=== PATIENT | male | born 1945 | race Caucasian/White ===

== ENCOUNTER 2017-11-16 07:48 | Day surgery (SDC) | payer MEDICARE ==
[2017-11-12 09:59] VITALS: BMI 40.4
[~2017-11-16 07:48] MED LIST: ALPRAZolam 0.25 MG TAB PO PRN; ALPRAZolam 0.5 MG TAB PO PRN; ASPIRIN 325 MG TAB PO STA; ATORVASTATIN 80 MG TAB PO STA; NITROGLYCERIN SL TABS 0.4 MG TAB SUBLINGUAL PRN; SODIUM CHLORIDE 0.9% 1,000 ML in EMPTY BAG 1 BAG IV ONE
[2017-11-16] MEDS ORDERED: MIDAZOLAM 2 MG/2 ML VIAL ONE (09:23)
[2017-11-16] MEDS ORDERED: VERAPAMIL 2.5 MG/ML 2 ML AMP ONE (09:23)
[2017-11-16] MEDS ORDERED: HEPARIN SODIUM 1,000 UN/ML (10ML VL) ONE (09:23)
[2017-11-16] MEDS ORDERED: LIDOCAINE 1% INJ 10MG/ML (20 ML MDV) ONE (09:23)
[2017-11-16] MEDS ORDERED: diphenhydrAMINE 50 MG/ML 1 ML VIAL ONE (09:23)
[2017-11-16] MEDS ORDERED: MIDAZOLAM 2 MG/2 ML VIAL IVP ONE (10:12)
[2017-11-16] MEDS ORDERED: diphenhydrAMINE 50 MG/ML 1 ML VIAL IVP ONE (10:12)
[2017-11-16] MEDS ORDERED: LIDOCAINE 1% INJ 10MG/ML (20 ML MDV) SQ ONE (10:19)
[2017-11-16] MEDS ORDERED: VERAPAMIL SYRINGE (5 MG/10 ML) INTRAARTER ONE (10:22)
[2017-11-16] MEDS ORDERED: NITROGLYCERIN SL TABS 0.4 MG TAB SUBLINGUAL ONE ×2 (10:34→10:35)
[2017-11-16] MEDS ORDERED: IOPAMIDOL-370 100ML BTL INJ ONE (10:36)
[2017-11-16] MEDS ORDERED: RX INFO: IV CONTRAST WAS GIVEN 1 EACH MISC MISCELLANE PRN (10:42)
[2017-11-16] MEDS ORDERED: SODIUM CHLORIDE 0.9% 1,000 ML IV SCH (10:45)
--- NOTE | 2017-11-16 11:30 | CC ---
CARDIAC CATHETERIZATION REPORT DATE OF SERVICE: 11/16/2017 PROCEDURE: Left heart catheterization and coronary angiography. PERFORMED BY: Dr. Gifty Celeste. CLINICAL INFORMATION: Mr. Michael Cintron is a 72-year-old gentleman with history of hypertension and hyperlipidemia who underwent stenting of mid LAD performed by me in April 2005. Because of symptoms of exertional shortness of breath and an abnormal stress test with inferolateral reversible defect and hypokinesia, he was advised coronary angiography. Risks, benefits, options and rationale were discussed. PROCEDURE NOTE: Under local anesthesia and strict aseptic precautions, a 6-Tamazight introducer was placed in the right radial artery. I used an Ultimate 1 catheter to perform selective coronary angiography of the left coronary artery. There was some tortuosity because the ascending aorta was coming off from more of a left-sided location and there was a steep curve on the catheter as it went down into the ascending aorta. However, I was able to cannulate the left main and selective coronary angiography was performed. I used a standard right Dionne catheter for right coronary artery. I checked LV pressures with the Ultimate 1 catheter. LV gram was not performed. The sheath was taken out and TR band applied. The saturation the fingers of the right hand was 91%. Patient tolerated procedure well without complications. ANESTHESIA: Moderate conscious sedation time was 21 minute. CARDIAC CATHETERIZATION FINDINGS: The left ventricular end-diastolic pressure was 10 mmHg without any gradient across the aortic valve. CORONARY ANGIOGRAPHY FINDINGS: LEFT MAIN CORONARY ARTERY: Short patent disease-free vessel that bifurcates into LAD and circumflex. LEFT ANTERIOR DESCENDING CORONARY ARTERY: Good caliber vessel extends along the anterior wall, gives off septal and diagonal branches. In the midportion at the site of a diagonal branch origin, there was a previously placed stent which is widely patent with very good flow. No significant disease is noted in the rest of the LAD system. There is mild narrowing noted, but no significant disease is detected. Beyond the stented segment, there is an area of myocardial bridging noted which is not new. No other significant disease is noted in the LAD system. LAD is a very large distribution vessel that curves over the apex to supply the inferoapical portion of the left ventricle. LEFT POSTERIOR CIRCUMFLEX CORONARY ARTERY: This is a technically nondominant yet good caliber, good distribution vessel that gives off a high first obtuse marginal and distal posterolateral branch which has minor irregularities and no significant disease. RIGHT CORONARY ARTERY: Technically a dominant vessel, has no significant disease, distally bifurcates into a good-sized PDA and PLV, both of which have minor irregularities. No significant disease. Dominant RCA is free of significant disease. FINAL IMPRESSION: This patient has a right dominant system, normal filling pressures, widely patent left anterior descending artery at the site of previous stenting in the mid portion with some bridging done beyond it. Right coronary artery is widely patent and circumflex has no significant disease. Filling pressures are normal. An LV-gram was not performed. RECOMMENDATION: Findings were discussed with the patient and family. I am recommending that we will continue medical therapy with aggressive risk factor modification. Probably, the stress test was a false-positive finding. MMODL / IJN: [id number] /
[2017-11-16 12:30] VITALS: RESP 16; TEMP 97.5
[2017-11-16] MEDS ORDERED: ACETAMINOPHEN TAB 325 MG TAB PO PRN (13:37)
[2017-11-16 14:14] VITALS: BP 146/84; PULSE 59
== END 2017-11-16 16:53 | disposition home or self-care (01) ==
LOC: CATHCVL 07:48 → 3OBS 10:42 → CATHCVL 16:53
PROVIDERS: ATTEND Internal Medicine Interventional Cardiology
DX: I25.110 Atherosclerotic heart disease of native coronary artery with unstable angina pectoris (principal); Z95.5 Presence of coronary angioplasty implant and graft; I10 Essential (primary) hypertension; Z87.891 Personal history of nicotine dependence; E78.00 Pure hypercholesterolemia, unspecified; E66.9 Obesity, unspecified; Z68.30 Body mass index [BMI] 30.0-30.9, adult; Z79.82 Long term (current) use of aspirin; Z79.899 Other long term (current) drug therapy
CPT/HCPCS: 93458; C1769; C1894; J2250; J1200; J2001; Q9967

== ENCOUNTER 2018-11-02 06:37 | Day surgery (SDC) | payer MEDICARE ==
[2018-10-27 10:52] VITALS: BMI 40.3
[~2018-11-02 06:37] MED LIST changes: -ALPRAZolam 0.25 MG TAB PO PRN; -ALPRAZolam 0.5 MG TAB PO PRN; -ASPIRIN 325 MG TAB PO STA; -ATORVASTATIN 80 MG TAB PO STA; +DEXAMETHASONE SOD PHOSPHATE 10 MG/ML 1 ML VIAL IV ONE; +LACTATED RINGERS 1,000 ML IV SCH; +LIDOCAINE 1% 20 ML VIAL (10MG/ML) FOR IV START INTRADERMA PRN; +MIDAZOLAM 2 MG/2 ML VIAL IV PRN; +MOXIFLOXACIN HCL 0.5% DROPS 3 ML BTL OP ONE; -NITROGLYCERIN SL TABS 0.4 MG TAB SUBLINGUAL PRN; +ONDANSETRON 4 MG/2 ML VIAL IVP ONE; -SODIUM CHLORIDE 0.9% 1,000 ML in EMPTY BAG 1 BAG IV ONE; +TETRACAINE 0.5% OPHTH (PF) DROPS 4 ML BTL OP ONE; +TIMOLOL 0.5% OPHTH DROPS 5 ML BTL OP ONE
[2018-11-02] MEDS: CYCLOPENTOLATE 1% OPHTH SOLN 2 ML BTL OP ONE ×2 (06:50→06:56)
[2018-11-02] MEDS: PHENYLEPHRINE 2.5% OPHTH DRP 2ML OP NR ×3 (06:53→07:05)
[2018-11-02 07:10] VITALS: TEMP 97.6
[2018-11-02] MEDS ORDERED: ONDANSETRON 4 MG/2 ML VIAL IVP PRN (07:12)
[2018-11-02] MEDS ORDERED: HYDROmorphone 0.5 MG/0.5 ML SYRINGE IVP PRN (07:12)
[2018-11-02] MEDS ORDERED: fentaNYL (PF) 50 MCG/ML 2 ML AMP ONE (07:24)
[2018-11-02] MEDS ORDERED: MIDAZOLAM 2 MG/2 ML VIAL ONE (07:24)
[2018-11-02] MEDS ORDERED: EPINEPHrine (PF) 0.3 ML in BALANCED SALT IRRIG SOLN COMB2 500 ML IRRIGATION ONE (07:32)
[2018-11-02] MEDS ORDERED: HYALURONATE SODIUM INTRAOCULAR 1 EACH SYRINGE (12MG/ML) INTRAOCULA ONE (07:33)
[2018-11-02] MEDS ORDERED: BALANCED SALT IRRIG SOLN COMB2 15 ML IRRIG.SOLN IRRIGATION ONE (07:33)
[2018-11-02] MEDS ORDERED: LIDOCAINE 1% (PF) 10MG/ML VIAL SQ ONE (07:34)
--- NOTE | 2018-11-02 07:55 | P.OP ---
Date of Procedure: 11/02/18 Preoperative Diagnosis: NS Postoperative Diagnosis: same Procedure(s) Performed: PIOL, OD Implants: PCB00 22.00 Anesthesia: MAC Surgeon: Arik Vazquez Estimated Blood Loss (ml): 0 Pathology: none sent Condition: stable Disposition: same day Indications for Procedure: blurry vision Operative Findings: no complications
[2018-11-02 08:22] VITALS: BP 132/79; PULSE 56; RESP 18
--- NOTE | 2018-11-03 07:50 | OP ---
OPERATIVE REPORT DATE OF SURGERY: 11/02/2018 PROCEDURE: Phacoemulsification of cataract and intraocular lens implant of the right eye. PREOPERATIVE DIAGNOSIS: Nuclear sclerosis. POSTOPERATIVE DIAGNOSIS: Nuclear sclerosis. OPERATION: Clear cornea phacoemulsification of cataract right eye. ESTIMATED BLOOD LOSS: Zero. SPECIMEN TAKEN: None. NARRATIVE: After obtaining the appropriate consent, the patient was brought to the Operating Room where the patient was placed under cardiac monitoring and prepped and draped in the usual sterile manner. At the 11 o'clock position a 15 degree super sharp blade was used to create a paracentesis followed by instillation of 1% Xylocaine MPF 50:50 mix with BSS into the anterior chamber. This was followed by Amvisc to stabilize the anterior chamber. At the 9 o'clock position a self-sealing corneal flap incision was created using 2.8 mm mary ellen keratome. A cystotome was used to initiate a continuous tear capsulorrhexis which was completed with the Utrata forceps. A Binkhorst cannula was used to hydrodissect the lens nucleus followed by hydrodelineation. Phacoemulsification of the lens was performed utilizing phacochop in 16.75 seconds at 18% power. The remaining cortical material was removed using the irrigation aspiration mode followed by additional 1% Xylocaine MPF into the anterior chamber followed by viscoelastic to stabilize the capsular bag. An Alex and Alex PCP00 22.0 diopters posterior chamber lens was placed into the capsular bag without difficulty. The remaining viscoelastic material was removed from the anterior chamber with the irrigation/aspiration. Balanced salt solution was used to normalize the intraocular pressure. The incision was checked for watertight integrity. The patient then received two drops of 0.5% timolol followed by two drops Vigamox, was lightly patched and shielded in the usual manner. There were no complications from the procedure. The patient tolerated the procedure well and was returned to recovery in good condition. MMODL / IJN: [id number] /
== END 2018-11-02 08:52 | disposition home or self-care (01) ==
LOC: OR 06:37
PROVIDERS: ATTEND Ophthalmology
DX: H25.13 Age-related nuclear cataract, bilateral (principal); G43.109 Migraine with aura, not intractable, without status migrainosus; H00.023 Hordeolum internum right eye, unspecified eyelid; H00.026 Hordeolum internum left eye, unspecified eyelid; H52.03 Hypermetropia, bilateral; H52.4 Presbyopia; E66.9 Obesity, unspecified; I10 Essential (primary) hypertension; F03.90 Unspecified dementia, unspecified severity, without behavioral disturbance, psychotic disturbance, mood disturbance, and anxiety; I25.10 Atherosclerotic heart disease of native coronary artery without angina pectoris; G47.33 Obstructive sleep apnea (adult) (pediatric); Z95.5 Presence of coronary angioplasty implant and graft; Z96.653 Presence of artificial knee joint, bilateral; Z79.82 Long term (current) use of aspirin; Z79.899 Other long term (current) drug therapy; Z87.891 Personal history of nicotine dependence; Z99.89 Dependence on other enabling machines and devices; Z68.41 Body mass index [BMI] 40.0-44.9, adult
CPT/HCPCS: 66984; C1780; J2250; J0171; J3010; J2001

== ENCOUNTER 2018-11-30 07:46 | Day surgery (SDC) | payer MEDICARE ==
[2018-11-29 08:34] VITALS: BMI 38.2
[~2018-11-30 07:46] MED LIST changes: -DEXAMETHASONE SOD PHOSPHATE 10 MG/ML 1 ML VIAL IV ONE; -LACTATED RINGERS 1,000 ML IV SCH; -MIDAZOLAM 2 MG/2 ML VIAL IV PRN; -ONDANSETRON 4 MG/2 ML VIAL IVP ONE; +ONDANSETRON 4 MG/2 ML VIAL IVP PRN
[2018-11-30 08:34] VITALS: TEMP 97.5
[2018-11-30] MEDS: CYCLOPENTOLATE 1% OPHTH SOLN 2 ML BTL OP ONE ×3 (08:38→08:50)
[2018-11-30] MEDS: PHENYLEPHRINE 2.5% OPHTH DRP 2ML OP NR ×3 (08:41→08:53)
[2018-11-30] MEDS: LACTATED RINGERS 1,000 ML IV SCH ×2 (08:53→10:24)
[2018-11-30] MEDS ORDERED: HYALURONATE SODIUM INTRAOCULAR 1 EACH SYRINGE (12MG/ML) INTRAOCULA ONE (10:16)
[2018-11-30] MEDS ORDERED: LIDOCAINE 1% (PF) 10MG/ML VIAL SQ ONE (10:17)
[2018-11-30] MEDS ORDERED: BALANCED SALT IRRIG SOLN COMB2 15 ML IRRIG.SOLN IRRIGATION ONE (10:17)
[2018-11-30] MEDS ORDERED: fentaNYL (PF) 50 MCG/ML 2 ML AMP ONE (10:18)
[2018-11-30] MEDS ORDERED: MIDAZOLAM 2 MG/2 ML VIAL ONE (10:18)
[2018-11-30] MEDS ORDERED: EPINEPHrine (PF) 0.3 ML in BALANCED SALT IRRIG SOLN COMB2 500 ML IRRIGATION ONE (10:43)
--- NOTE | 2018-11-30 10:46 | P.OP ---
Date of Procedure: 11/30/18 Preoperative Diagnosis: NS & CS Postoperative Diagnosis: same Procedure(s) Performed: PIOL, OS Implants: PCB00 21.50 Anesthesia: MAC Surgeon: Arik Vazquez Estimated Blood Loss (ml): 0 Pathology: none sent Condition: stable Disposition: same day Indications for Procedure: blurry vision Operative Findings: no complications
[2018-11-30 10:52] VITALS: RESP 16
[2018-11-30 11:16] VITALS: BP 158/67; PULSE 62
--- NOTE | 2018-12-01 05:35 | OP ---
OPERATIVE REPORT DATE OF SURGERY: 11/30/2018 SURGEON: Arik Vazquez MD PREOPERATIVE DIAGNOSIS: Nuclear sclerosis and cortical sclerosis. POSTOPERATIVE DIAGNOSIS: Nuclear sclerosis and cortical sclerosis. OPERATION: Phacoemulsification of cataract and intraocular lens implant to the left eye. ESTIMATED BLOOD LOSS: Zero. SPECIMEN TAKEN: None. NARRATIVE: After obtaining the appropriate consent, the patient was brought to the operating room where the patient was placed under cardiac monitoring and prepped and draped in the usual sterile manner. At the 5 o'clock position a 15 degree super sharp blade was used to create a paracentesis followed by instillation of 1% Xylocaine MPF 50:50 mix with BSS into the anterior chamber. This was followed by Amvisc to stabilize the anterior chamber. At the 3 o'clock position a self-sealing corneal flap incision was created using 2.8 mm mary ellen keratome. A cystotome was used to initiate a continuous tear capsulorrhexis which was completed with the Utrata forceps. A Binkhorst cannula was used to hydrodissect the lens nucleus followed by hydrodelineation. Phacoemulsification of the lens was performed utilizing phaco chop in 16.41 seconds at 16% power. The remaining cortical material was removed using the irrigation aspiration mode followed by additional 1% Xylocaine MPF into the anterior chamber followed by viscoelastic to stabilize the capsular bag. An Alex and Alex PCB00 21.5 diopters posterior chamber lens was placed into the capsular bag without difficulty. The remaining viscoelastic material was removed from the anterior chamber with the irrigation/aspiration. Balanced salt solution was used to normalize the intraocular pressure. The incision was checked for watertight integrity. The patient then received two drops of 0.5% timolol followed by two drops Vigamox, was lightly patched and shielded in the usual manner. There were no complications from the procedure. The patient tolerated the procedure well and was returned to recovery in good condition. MMODL / IJN: [id number] /
== END 2018-11-30 11:49 | disposition home or self-care (01) ==
LOC: OR 07:46
PROVIDERS: ATTEND Ophthalmology
DX: H25.12 Age-related nuclear cataract, left eye (principal); H25.012 Cortical age-related cataract, left eye; H00.026 Hordeolum internum left eye, unspecified eyelid; H00.023 Hordeolum internum right eye, unspecified eyelid; H52.03 Hypermetropia, bilateral; H52.4 Presbyopia; I10 Essential (primary) hypertension; I25.10 Atherosclerotic heart disease of native coronary artery without angina pectoris; F03.90 Unspecified dementia, unspecified severity, without behavioral disturbance, psychotic disturbance, mood disturbance, and anxiety; M19.90 Unspecified osteoarthritis, unspecified site; G43.109 Migraine with aura, not intractable, without status migrainosus; E78.5 Hyperlipidemia, unspecified; G47.33 Obstructive sleep apnea (adult) (pediatric); H91.90 Unspecified hearing loss, unspecified ear; C44.90 Unspecified malignant neoplasm of skin, unspecified; Z87.891 Personal history of nicotine dependence; Z99.89 Dependence on other enabling machines and devices; Z79.82 Long term (current) use of aspirin; Z79.899 Other long term (current) drug therapy; Z95.5 Presence of coronary angioplasty implant and graft; Z98.41 Cataract extraction status, right eye; Z96.1 Presence of intraocular lens; Z96.653 Presence of artificial knee joint, bilateral; Z98.890 Other specified postprocedural states
CPT/HCPCS: 66984; C1780; J2250; J0171; J3010; J2001

== ENCOUNTER → 2019-06-06 | Outpatient (CLI) | payer MEDICARE ==
[2019-06-06 13:51] LABS: Basophils # (A) 0.1 k/uL (0-0.2); Basophils % (A) 1 %; Eosinophils # (A) 0.1 k/uL (0-0.7); Eosinophils % (A) 2 %; HCT 51.8 % (39.0-53.0); HGB 16.8 gm/dL (13.0-17.5); Lymphocytes # (A) 1.8 k/uL (1.0-4.8); Lymphocytes % (A) 25 %; MCH 31.2 pg (25.0-35.0); MCHC 32.3 g/dL (31.0-37.0); MCV 96.3 fL (80.0-100.0); Mean Platelet Volume 6.7; Monocytes # (A) 0.5 k/uL (0-1.0); Monocytes % (A) 7 %; Neutrophils # (A) 4.4 k/uL (1.3-7.7); Neutrophils % (A) 62 %; Platelet Count 207 k/uL (150-450); RBC 5.38 m/uL (4.30-5.90); RDW 13.6 % (11.5-15.5); WBC 7.1 k/uL (3.8-10.6)
[2019-06-06 13:54] LABS: ALT 20 U/L (4-49); AST 32 U/L (17-59); African American GFR (CKD) >90 (>60 ml/min/1.73 sqM); Albumin 4.4 g/dL (3.5-5.0); Alkaline Phosphatase 97 U/L (38-126); Anion Gap 5 mmol/L; Blood Urea Nitrogen 14 mg/dL (9-20); Calcium 9.5 mg/dL (8.4-10.2); Carbon Dioxide 29 mmol/L (22-30); Chloride 105 mmol/L (98-107); Glucose 90 mg/dL (74-99); Non-African American GFR(CKD) 78 (>60 ml/min/1.73 sqM); Potassium 4.5 mmol/L (3.5-5.1); Sodium 139 mmol/L (137-145); Total Bilirubin 0.3 mg/dL (0.2-1.3); Total Protein 7.5 g/dL (6.3-8.2)
--- NOTE | 2019-06-06 14:33 | CT ---
EXAMINATION TYPE: CT soft tissue neck w con DATE OF EXAM: 06/06/2019 COMPARISON: None HISTORY: Swelling to neck bilaterally marked with BBs. CT DLP: 687.5 mGycm CONTRAST: CT scan of the neck is performed with IV Contrast, patient injected with 100 mL of Isovue 300. Contrast enhanced CT of the neck was performed from the skull base through the lung apices. AIRWAY: The supraglottic, glottic, and subglottic portions of the airway appear patent and free of mass. SALIVARY GLANDS: The submandibular and parotid glands are free of mass or inflammatory process. THYROID GLAND: No nodules or masses seen. LYMPH NODES: There is internal jugular chain adenopathy noted on the right with 2 enlarged lymph node s measuring 2 cm in short axis and 1.2 cm in short axis. No left-sided adenopathy or mass appreciated . LUNG APICES: No nodule or mass is seen. OTHER: Vascular structures are patent. No significant degenerative change of the cervical spine. N o abscess seen. IMPRESSION: Right-sided internal jugular chain adenopathy noted.
== END | disposition home or self-care (01) ==
LOC: RADCTMAIN 13:08
PROVIDERS: ATTEND Family Medicine
DX: R59.0 Localized enlarged lymph nodes (principal)
CPT/HCPCS: 80053; 85025; 70491; 36415; Q9967

== ENCOUNTER 2019-06-22 09:26 | Day surgery (SDC) | payer MEDICARE ==
[2019-06-22] MEDS ORDERED: ALPRAZolam 0.25 MG TAB PO STA (10:02)
[2019-06-22 10:14] VITALS: RESP 16; TEMP 98.1
[2019-06-22 11:05] VITALS: BP 140/88; PULSE 49
--- NOTE | 2019-06-22 12:06 | US ---
EXAMINATION TYPE: US FNA first lesion DATE OF EXAM: 06/22/2019 COMPARISON: NONE HISTORY: Right submandibular adenopathy. Maximal barrier technique was utilized. After informed consent, skin overlying the lesion was locali zed with ultrasound and the overlying skin prepped and draped. Ultrasound was utilized using sterile technique. Lidocaine was used for local anesthesia. 3 passes with a 25-gauge needle were made into t he nodule and aspirated specimen was submitted to cytology. Attempted core biopsy was aborted, adequ ate diagnosis obtained with fine-needle aspiration per pathology. Following the procedure hemostasis achieved. No immediate complication. The patient discharged in stable condition. IMPRESSION: STATUS POST ULTRASOUND GUIDED FINE NEEDLE ASPIRATION OF SUBMANDIBULAR ADENOPATHY, PATHOLO GY IS PENDING. THIS PROCEDURE WAS PERFORMED BY THE UNDERSIGNED.
== END 2019-06-22 11:24 | disposition home or self-care (01) ==
LOC: RADPROMAIN 09:26
PROVIDERS: ATTEND Family Medicine
DX: C76.0 Malignant neoplasm of head, face and neck (principal)
CPT/HCPCS: 10005; 88173; 88305; 88341; 88342

== ENCOUNTER → 2019-06-30 | Outpatient (CLI) | payer MEDICARE ==
--- NOTE | 2019-07-03 11:11 | PE ---
EXAMINATION TYPE: PET CT fusion skull to thigh DATE OF EXAM: 06/30/2019 COMPARISON: CT soft tissue neck 06/06/2019 Prior PET/CT: None HISTORY: Head and neck cancer right neck TECHNIQUE: Following the intravenous administration of mCi of F-18 FDG, whole body images are perfor med from the skull base to the midthigh. Images are reviewed on the computer in the coronal, axial, and sagittal planes. Reconstructed rotating images are created on independent workstation and review ed on the computer. A localization and attenuation correction CT is performed in conjunction with t he PET scan. Dedicated head and neck imaging was performed. DLP: 734.18 mGycm SCAN: Initial Blood glucose: 83 mg/dL Average Mediastinum SUV: 1.28 Average Liver SUV: 2.07 FINDINGS: NECK: There is increased radiotracer accumulation within the right hypopharynx with an SUV value of 17.62. Image 39. Some mild uptake on the left lateral hypopharynx wall measures SUV value 6.14, image 39. There is a lymph node medial and inferior to the right parotid gland with an SUV value 14.17. At 42. Additional submandibular lymphadenopathy appears to be present with an SUV value of 19.16. Image 48. A small lymph node with increased radiotracer is within the right anterior neck, image 53, SUV 9.15. These lymph nodes correspond to findings on 3:30 03/28/2019 CT neck On the dedicated head and neck imaging THORAX: No abnormal uptake ABDOMEN: No abnormal uptake PELVIS: No abnormal uptake OSSEOUS STRUCTURES: No abnormal uptake right submandibular lymphadenopathy is again evident. There is mild asymmetry of the hypopharynx slightly greater thickening on the right corresponding to the kelly ent's neoplasm LOCALIZATION CT: There is a rounded density in the posterior lateral right kidney. This is hypointens e on PET imaging. PET image 154. COMPARISON: Lymphadenopathy similar to the CT examination. IMPRESSION: 1. Uptake within the right lateral hypopharynx compatible with the patient's reported neoplasm. 2. There is some milder uptake along the left lateral aspect of the hypopharynx with elevated SUV glenn ue of 6, neoplasm on the left may be present. 3. Hyperintense lymphadenopathy corresponding to enlarged lymph nodes on the CT examination within th e right neck. A small lymph node may be slightly more inferior but also is suspicious for metastatic disease with increased radiotracer.
== END | disposition home or self-care (01) ==
LOC: RADPETMAIN 13:27
PROVIDERS: ATTEND Internal Medicine Hematology & Oncology
DX: R93.89 Abnormal findings on diagnostic imaging of other specified body structures (principal); R59.1 Generalized enlarged lymph nodes; C76.0 Malignant neoplasm of head, face and neck
CPT/HCPCS: 78815; A9552

== ENCOUNTER 2019-07-17 10:01 | Day surgery (SDC) | payer MEDICARE ==
[2019-07-17 10:35] VITALS: TEMP 97.4
--- NOTE | 2019-07-17 10:42 | P.GSHP ---
History of Present Illness H&P Date: 07/17/19 Chief Complaint: Head and neck cancer Patient here today for elective EGD with PEG tube placement. Patient recently diagnosed with head and neck cancer. We'll be starting radiation therapy later this week. Concern regarding difficulty with maintaining his nutrition given the expected dysphagia and odynophagia related to his upcoming treatment. No previous feeding tubes in the past. No significant abdominal surgeries. Past Medical History Past Medical History: Coronary Artery Disease (CAD), Cancer, Chest Pain / Angina, Eye Disorder, Hearing Disorder / Deafness, Hyperlipidemia, Hypertension, Osteoarthritis (OA), Sleep Apnea/CPAP/BIPAP Additional Past Medical History / Comment(s): eye cataract, OCCASIONAL CHEST PAIN, SKIN CANCER, USES CPAP History of Any Multi-Drug Resistant Organisms: None Reported Past Surgical History: Heart Catheterization With Stent, Joint Replacement Additional Past Surgical History / Comment(s): one stent, LEFT SHOULDER REPLACEMENT, SD KNEE REPLACEMENTS, NUMEROUS SURGERIES LEFT EAR CANCER. CATARACT RIGHT EYE-WITH LENS IMPLANT Past Anesthesia/Blood Transfusion Reactions: No Reported Reaction Date of Last Stent Placement:: 2006 Past Psychological History: No Psychological Hx Reported Additional Psychological History / Comment(s): VASCULAR DEMENTIA Smoking Status: Former smoker Past Alcohol Use History: Rare Additional Past Alcohol Use History / Comment(s): STARTED SMOKING AT AGE 10 quit SMOKING AT AGE 40 SMOKED 2-3 PPD Past Drug Use History: None Reported - Past Family History Mother Family Medical History: No Reported History Medications and Allergies Home Medications Medication Instructions Recorded Confirmed Type Donepezil [Aricept] 10 mg PO BID 01/16/14 07/17/19 History Multivitamins, Thera [Multivitamin] 1 each PO HS 01/16/14 07/17/19 History Aspirin [Adult Low Dose Aspirin EC] 81 mg PO HS 11/12/17 07/17/19 History Atorvastatin [Lipitor] 20 mg PO HS 11/12/17 07/17/19 History Metoprolol Tartrate [Lopressor] 12.5 mg PO HS 11/12/17 07/17/19 History Sertraline [Zoloft] 50 mg PO HS 11/12/17 07/17/19 History risperiDONE [RisperDAL] 1 mg PO HS 11/12/17 07/17/19 History Pramipexole Di-HCl [Mirapex] 1 mg PO HS 11/29/18 07/17/19 History Allergies Allergy/AdvReac Type Severity Reaction Status Date / Time No Known Allergies Allergy Verified 07/17/19 10:35 Surgical - Exam Vital Signs Temp Pulse Resp BP Pulse Ox 97.4 F L 64 18 152/85 97 07/17/19 10:33 07/17/19 10:33 07/17/19 10:33 07/17/19 10:33 07/17/19 10:33 Physical exam: General: Well-developed, well-nourished HEENT: Normocephalic, sclerae nonicteric Abdomen: Nontender, nondistended Extremities: No edema Neuro: Alert and oriented Assessment and Plan (1) Head and neck cancer Narrative/Plan: Will proceed with EGD and PEG tube placement at this time. Risks of bleeding, infection, enteric injury, peritonitis, fistula reviewed. He understands and wishes to proceed. Current Visit: Yes Status: Acute Code(s): C76.0 - MALIGNANT NEOPLASM OF HEAD, FACE AND NECK SNOMED Code(s): 941134198
[2019-07-17] MEDS ORDERED: LIDOCAINE 1% INJ 10MG/ML (20 ML MDV) ONE (10:44)
[2019-07-17] MEDS ORDERED: PROPOFOL 10 MG/ML 20 ML VIAL IV ONE (10:44)
[2019-07-17] MEDS ORDERED: LACTATED RINGERS 1,000 ML IV ONE (10:45)
--- NOTE | 2019-07-17 11:08 | P.PCN ---
Date of Procedure: 07/17/19 Procedure(s) Performed: PREOPERATIVE DIAGNOSIS: Malnutrition, head and neck cancer POSTOPERATIVE DIAGNOSIS: Same PROCEDURE: EGD with PEG tube placement SURGEON: Fvaio EBL: Minimal ANESTHESIA: Sedation COMPLICATIONS: None OPERATIVE PROCEDURE: The patient was placed in the supine position on the endoscopy table. The patient was sedated per anesthesia that time. The Olympus gastroscope was inserted into the oropharynx and passed under direct visualization to the region of the duodenum. No obstruction was seen. The pylorus was widely patent. The stomach was carefully inspected. The stomach was fully insufflated with air. The abdominal wall was inspected. The light was seen shining through the abdominal wall in the left upper quadrant. This site was chosen for PEG tube placement. The area was prepped in the usual sterile fashion. This area was then localized with lidocaine. A small vertical incision was made using the scalpel. The Seldinger needle was advanced into the lumen of the stomach the wire was advanced. The wire was grasped with an endoscopic snare. The wire was pulled through the oropharynx. The catheter was then threaded over the guidewire and the guidewire and catheter were pulled anteriorly until the hub of the PEG tube catheter was seated against the anterior wall the stomach. The circular bolster was applied and tightened down. The endoscope was then readvanced into the stomach. There was no evidence of any bleeding and there was appropriate tightness on the bolster. The catheter was cut appropriately. The dual port feeding adapter was applied. DISPOSITION: Stable to recovery room
[2019-07-17 11:46] VITALS: RESP 16
[2019-07-17 11:49] VITALS: BP 154/83; PULSE 59
== END 2019-07-17 12:45 | disposition home health service (06) ==
LOC: ORWHC2ENDO 10:01
PROVIDERS: ATTEND Surgery
DX: C76.0 Malignant neoplasm of head, face and neck (principal); E46 Unspecified protein-calorie malnutrition; I11.9 Hypertensive heart disease without heart failure; C09.9 Malignant neoplasm of tonsil, unspecified; G47.33 Obstructive sleep apnea (adult) (pediatric); C79.9 Secondary malignant neoplasm of unspecified site; F01.50 Vascular dementia, unspecified severity, without behavioral disturbance, psychotic disturbance, mood disturbance, and anxiety; M19.90 Unspecified osteoarthritis, unspecified site; E78.00 Pure hypercholesterolemia, unspecified; H91.90 Unspecified hearing loss, unspecified ear; E78.5 Hyperlipidemia, unspecified; I25.110 Atherosclerotic heart disease of native coronary artery with unstable angina pectoris; Z68.39 Body mass index [BMI] 39.0-39.9, adult; Z79.899 Other long term (current) drug therapy; Z79.82 Long term (current) use of aspirin; Z79.01 Long term (current) use of anticoagulants; Z98.890 Other specified postprocedural states; Z96.653 Presence of artificial knee joint, bilateral; Z85.820 Personal history of malignant melanoma of skin; Z86.19 Personal history of other infectious and parasitic diseases; Z87.891 Personal history of nicotine dependence; Z85.89 Personal history of malignant neoplasm of other organs and systems; Z99.89 Dependence on other enabling machines and devices; Z95.5 Presence of coronary angioplasty implant and graft; Z96.612 Presence of left artificial shoulder joint; Z98.41 Cataract extraction status, right eye; Z96.1 Presence of intraocular lens
CPT/HCPCS: 87635; 43246; J2001; J2704; B4087

== ENCOUNTER 2019-08-29 08:36 | Inpatient (IN) | payer MEDICARE ==
[2019-08-29] MEDS ORDERED: SODIUM CHLORIDE 0.9% 1,000 ML IV STA ×2 (08:40)
[2019-08-29] MEDS ORDERED: IPRATROPIUM-ALBUTEROL 3 ML NEB INHALATION STA (08:52)
--- NOTE | 2019-08-29 09:03 | ED ---
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 He coded blue was called and was one of several physicians and did respond to. Patient was found be awake alert but dyspneic complain of shortness of breath and a heart rate of about 44 Accu-Chek was unobtainable at the time. Per his who was present on my arrival she stated his heart rate was in the 30s yesterday. He does have a PEG tube. He does get rehydrated about once a week she states. He's had no recent fevers chills nausea vomiting sweats or other s ymptoms. He voices again that he is short of breath no chest pain however. He was transported to the emergency department by stretcher to trauma 2. The patient blood pressure was 88/64 on arrival MD Complaint: dizziness, lightheadedness, near syncope - Related Data Home Medications Medication Instructions Recorded Confirmed Donepezil [Aricept] 10 mg PO BID 01/16/14 08/24/19 Multivitamins, Thera [Multivitamin] 1 each PO HS 01/16/14 08/24/19 Aspirin [Adult Low Dose Aspirin EC] 81 mg PO HS 11/12/17 08/24/19 Atorvastatin [Lipitor] 20 mg PO HS 11/12/17 08/24/19 Metoprolol Tartrate [Lopressor] 12.5 mg PO HS 11/12/17 08/24/19 Sertraline [Zoloft] 50 mg PO HS 11/12/17 08/24/19 risperiDONE [RisperDAL] 1 mg PO HS 11/12/17 08/24/19 Pramipexole Di-HCl [Mirapex] 1 mg PO HS 11/29/18 08/24/19 Previous Rx's Medication Instructions Recorded Omeprazole [PriLOSEC] 20 mg PO AC-BRKFST #90 cap 07/17/19 Allergies Allergy/AdvReac Type Severity Reaction Status Date / Time No Known Allergies Allergy Verified 08/24/19 08:36 Review of Systems ROS Statement: Those systems with pertinent positive or pertinent negative responses have been documented in the HPI. ROS Other: All systems not noted in ROS Statement are negative. Past Medical History Past Medical History: Coronary Artery Disease (CAD), Cancer, Chest Pain / Angina, Eye Disorder, Hearing Disorder / Deafness, Hyperlipidemia, Hypertension, Osteoarthritis (OA), Sleep Apnea/CPAP/BIPAP Additional Past Medical History / Comment(s): eye cataract, OCCASIONAL CHEST PAIN, SKIN CANCER, USES CPAP. 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 CATARACT RIGHT EYE-WITH LENS IMPLANT Past Anesthesia/Blood Transfusion Reactions: No Reported Reaction Date of Last Stent Placement:: 2006 Past Psychological History: No Psychological Hx Reported Smoking Status: Former smoker - Past Family History Mother Family Medical History: No Reported History General Exam - General Exam Comments Initial Comments: This is a well-developed well-nourished awake alert male Limitations: altered mental status General appearance: alert, anxious, in distress Head exam: Present: atraumatic, normocephalic, normal inspection Eye exam: Present: normal appearance, PERRL, EOMI. Absent: scleral icterus, conjunctival injection, periorbital swelling ENT exam: Present: mucous membranes dry Neck exam: Present: normal inspection. Absent: tenderness, meningismus, lymphadenopathy Respiratory exam: Present: accessory muscle use, decreased breath sounds. Absent: respiratory distress, wheezes, rales, rhonchi, stridor Cardiovascular Exam: Present: normal rhythm, tachycardia, normal heart sounds. Absent: systolic murmur, diastolic murmur, rubs, gallop, clicks GI/Abdominal exam: Present: soft, normal bowel sounds, other (PEG tube in place no pulsatile masses or bruits). Absent: distended, tenderness, guarding, rebound, rigid Extremities exam: Present: full ROM, normal capillary refill, other (Some acrocyanosis noted to the left hand fingers or his name abrasion some skin slippages over the pad of the ring finger which is from a previous injury). Absent: tenderness, pedal edema, joint swelling, calf tenderness Back exam: Present: normal inspection Neurological exam: Present: alert, altered, CN II-XII intact. Absent: motor sensory deficit Psychiatric exam: Present: normal affect, normal mood Skin exam: Present: warm, dry, intact, normal color. Absent: rash Course Vital Signs 08/29/19 08/29/19 08/29/19 08:41 08:50 09:01 Temperature 98.2 F Pulse Rate 112 H 109 H 112 H Pulse Rate [ [employer] ] Respiratory 18 Rate Blood Pressure 114/84 O2 Sat by Pulse Oximetry 08/29/19 08/29/19 09:12 09:41 Temperature Pulse Rate 111 H Pulse Rate [ 112 H [employer] ] Respiratory 20 Rate Blood Pressure 98/58 O2 Sat by Pulse 93 L Oximetry - Reevaluation(s) Reevaluation #1: 08/29/19 10:49 Reevaluation the patient reveals some increased aeration after updrafts he is feeling nauseated did receive medication for this. Clinically he still appears be dehydrated. Blood pressure has improved somewhat after IV fluids Reevaluation #2: 08/29/19 10:52 Not noted any visual exam dictation there is an abrasion on the right arm lateral aspect going from superior to inferior consistent with injury after his fall. Medical Decision Making - Medical Decision Making I did discuss findings with the patient's family who is present. Patient be admitted for inpatient evaluation of syncope bradycardia dehydration. Consultation will be made to radiation and medical oncology. The patient will be admitted to Dr. Morillo's group - Lab Data Result diagrams: 08/29/19 09:01 08/29/19 09:01 Lab Results 08/29/19 08/29/19 08/29/19 Range/Units 09:01 09:01 09:01 WBC 3.5 L (3.8-10.6) k/uL RBC 4.69 (4.30-5.90) m/uL Hgb 14.8 (13.0-17.5) gm/dL Hct 44.4 (39.0-53.0) % MCV 94.6 (80.0-100.0) fL MCH 31.5 (25.0-35.0) pg MCHC 33.3 (31.0-37.0) g/dL RDW 14.5 (11.5-15.5) % Plt Count 88 L (150-450) k/uL Neutrophils % (Manual) 60 % Band Neutrophils % 1 % Lymphocytes % (Manual) 26 % Monocytes % (Manual) 13 % Other Cells % % Neutrophils # (Manual) 2.10 (1.3-7.7) k/uL Lymphocytes # (Manual) 0.91 L (1.0-4.8) k/uL Monocytes # (Manual) 0.46 (0-1.0) k/uL Nucleated RBCs 0 (0-0) /100 WBC Manual Slide Review Performed RBC Morphology Normal PT 11.6 (9.0-12.0) sec INR 1.1 (<1.2) APTT 24.0 (22.0-30.0) sec Sodium 135 L (137-145) mmol/L Potassium 4.4 (3.5-5.1) mmol/L Chloride 102 (98-107) mmol/L Carbon Dioxide 24 (22-30) mmol/L Anion Gap 9 mmol/L BUN 22 H (9-20) mg/dL Creatinine 1.12 (0.66-1.25) mg/dL Est GFR (CKD-EPI)AfAm 75 (>60 ml/min/1.73 sqM) Est GFR (CKD-EPI)NonAf 65 (>60 ml/min/1.73 sqM) Glucose 140 H (74-99) mg/dL Calcium 8.5 (8.4-10.2) mg/dL Magnesium 1.9 (1.6-2.3) mg/dL Total Bilirubin 0.7 (0.2-1.3) mg/dL AST 26 (17-59) U/L ALT 24 (4-49) U/L Alkaline Phosphatase 85 (38-126) U/L Creatine Kinase 38 L (55-170) U/L Troponin I (0.000-0.034) ng/mL NT-Pro-B Natriuret Pep pg/mL Total Protein 6.2 L (6.3-8.2) g/dL Albumin 3.3 L (3.5-5.0) g/dL 08/29/19 08/29/19 Range/Units 09:01 09:01 WBC (3.8-10.6) k/uL RBC (4.30-5.90) m/uL Hgb (13.0-17.5) gm/dL Hct (39.0-53.0) % MCV (80.0-100.0) fL MCH (25.0-35.0) pg MCHC (31.0-37.0) g/dL RDW (11.5-15.5) % Plt Count (150-450) k/uL Neutrophils % (Manual) % Band Neutrophils % % Lymphocytes % (Manual) % Monocytes % (Manual) % Other Cells % % Neutrophils # (Manual) (1.3-7.7) k/uL Lymphocytes # (Manual) (1.0-4.8) k/uL Monocytes # (Manual) (0-1.0) k/uL Nucleated RBCs (0-0) /100 WBC Manual Slide Review RBC Morphology PT (9.0-12.0) sec INR (<1.2) APTT (22.0-30.0) sec Sodium (137-145) mmol/L Potassium (3.5-5.1) mmol/L Chloride (98-107) mmol/L Carbon Dioxide (22-30) mmol/L Anion Gap mmol/L BUN (9-20) mg/dL Creatinine (0.66-1.25) mg/dL Est GFR (CKD-EPI)AfAm (>60 ml/min/1.73 sqM) Est GFR (CKD-EPI)NonAf (>60 ml/min/1.73 sqM) Glucose (74-99) mg/dL Calcium (8.4-10.2) mg/dL Magnesium (1.6-2.3) mg/dL Total Bilirubin (0.2-1.3) mg/dL AST (17-59) U/L ALT (4-49) U/L Alkaline Phosphatase (38-126) U/L Creatine Kinase (55-170) U/L Troponin I 0.047 H* (0.000-0.034) ng/mL NT-Pro-B Natriuret Pep 312 pg/mL Total Protein (6.3-8.2) g/dL Albumin (3.5-5.0) g/dL - EKG Data -: EKG Interpreted by Ks EKG shows normal: sinus rhythm (Sinus tachycardia rate 114) EKG Comments: Sinus tachycardia with left exodeviation right bundle-branch block pattern rate 114. Interval 148 QRS 134 QT since QTC 340/468 is is compared with an EKG dated the bundle-branch block did not appear evident then - Radiology Data Radiology results: report reviewed (Imaging reviewed CT negative for acute fi ndings x-ray shows evidence of atelectasis versus scarring in the right apex of the lung.), image reviewed Critical Care Time Critical Care Time: Yes Critical Care Time: 44 minutes of critical care time which includes initial presentation with history physical labs x-rays several reevaluation patient responsive therapy discuss with patient family regarding findings review of old charting discussed with the admitting physician admission orders and documentation of the above Disposition Clinical Impression: Syncope and collapse, Dehydration, Bradycardia, Elevated troponin, Head and neck cancer, Vomiting, Bronchospasm, Tachycardia Disposition: ADMITTED IP TO THIS [facility] Condition: Fair Referrals: Daksha Villegas MD [Primary Care Provider] - 1-2 days
[2019-08-29 09:27] LABS: Albumin 3.3 g/dL (3.5-5.0); Calcium 8.5 mg/dL (8.4-10.2); Magnesium 1.9 mg/dL (1.6-2.3); Potassium 4.4 mmol/L (3.5-5.1); Total Bilirubin 0.7 mg/dL (0.2-1.3); Total Protein 6.2 g/dL (6.3-8.2)
[2019-08-29 09:29] LABS: HCT 44.4 % (39.0-53.0); HGB 14.8 gm/dL (13.0-17.5); MCH 31.5 pg (25.0-35.0); MCHC 33.3 g/dL (31.0-37.0); MCV 94.6 fL (80.0-100.0); Mean Platelet Volume 7.7; Platelet Count 88 k/uL (150-450); RBC 4.69 m/uL (4.30-5.90); RDW 14.5 % (11.5-15.5); WBC 3.5 k/uL (3.8-10.6)
[2019-08-29 09:38] LABS: INR 1.1 (<1.2); Prothrombin Time 11.6 sec (9.0-12.0)
--- NOTE | 2019-08-29 09:41 | CT ---
EXAMINATION TYPE: CT brain sourav hilario DATE OF EXAM: 08/29/2019 COMPARISON: None HISTORY: Syncopal episode CT DLP: 1921.[address] of the brain was performed. The ventricles, basal cisterns and sulci overlying the cerebral convexities demonstrate mild enlargem ent. There is no evidence for intracranial hemorrhage or sulcal effacement. There is decreased attenuatio n about the periventricular white matter and deep white matter of both cerebral hemispheres, compatib le with chronic small vessel ischemia. No mass effects are seen. If symptoms persist consider MRI. Osseous calvarium is intact. IMPRESSION: 1. Age related atrophic and chronic small vessel ischemic change without acute intracranial process seen at this time. CT Cervical Spine: Unenhanced CT of the cervical spine was performed with bone and soft tissue window settings submitted . Coronal and sagittal reconstruction is obtained. There is normal alignment and prevertebral soft tissues. No evidence for acute cervical fracture . Scattered degenerative disc disease and spondylosis. Biapical scarring. IMPRESSION: 1. No evidence for acute fracture or subluxation of the cervical spine.
[2019-08-29] MEDS ORDERED: ONDANSETRON 4 MG/2 ML VIAL IVP STA (09:47)
--- NOTE | 2019-08-29 09:47 | XR ---
EXAMINATION TYPE: XR chest 2V DATE OF EXAM: 08/29/2019 COMPARISON: PET CT June 30, 2019. HISTORY: History of head and neck cancer with syncope and weakness. TECHNIQUE: Frontal and lateral views of the chest are obtained. FINDINGS: Somewhat low lung volumes redemonstrated. New right apical linear atelectasis and/or scarri ng may be product of right neck radiation treatment. There is no new suspicious focal air space opaci ty, pleural effusion, or pneumothorax seen. The cardiac silhouette size remains enlarged. Partial vi sualization of surgical change left shoulder level. Osseous structures somewhat demineralized with mu ltilevel spurring in thoracic spine seen on lateral view. IMPRESSION: Low lung volumes and cardiomegaly with new right apical linear scarring and/or atelectas is. No new suspicious focal infiltrate.
[2019-08-29 10:05] LABS: Band Neutrophils % 1 %; Lymphocytes # (M) 0.91 k/uL (1.0-4.8); Monocytes # (M) 0.46 k/uL (0-1.0); Neutrophils % (M) 60 %; Nucleated Red Blood Cells 0 /100 WBC (0-0); Total Cells Counted 100
[2019-08-29] MEDS ORDERED: NALOXONE 0.4 MG/ML 1 ML VIAL IV PRN (10:56)
[2019-08-29] MEDS ORDERED: ONDANSETRON 4 MG/2 ML VIAL IVP PRN (10:56)
[2019-08-29] MEDS ORDERED: METOCLOPRAMIDE 5 MG/ML 2 ML VIAL IVP STA (10:59)
--- NOTE | 2019-08-29 12:16 | CT ---
EXAMINATION TYPE: CT angio chest DATE OF EXAM: 08/29/2019 COMPARISON: HISTORY: syncope, possible PE CT DLP: 868.3 mGycm CONTRAST: CT chest with contrast and 3D reconstruction with MIP imaging is performed with IV Contrast, patient injected with 100 mL of Isovue 370. Contrast-enhanced CT of the chest was performed through the course of the pulmonary arteries with young g and mediastinal window settings submitted. 3D reconstruction with MIP imaging was also performed. PULMONARY ARTERIES: There is bilateral pulmonary embolism involving the bilateral pulmonary arteries without sagittal component. Thrombus extends into secondary and tertiary upper lobe and lower lobe tr ibutaries. There is flattening of the ventricular septum and right ventricular strain is difficult to exclude. LUNGS: The lungs are clear and free of infiltrate. Scattered atelectasis noted. No pulmonary nodule o r mass is detected. No pleural effusion. MEDIASTINUM: Thoracic aorta is of normal caliber,however, evaluation is limited given timing of the contrast bolus. If there is concern for thoracic aortic pathology consider HANANE. Correlate clinicall y . The heart is not enlarged. No evidence for mediastinal mass. No mediastinal lymph nodes greater than 1cm. HILAR STRUCTURES: No evidence for mass. No hilar lymph nodes greater than 1 cm. UPPER ABDOMEN: No significant abnormality is seen. IMPRESSION: 1. There is bilateral pulmonary embolism involving the bilateral pulmonary arteries without sagittal component. Thrombus extends into secondary and tertiary upper lobe and lower lobe tributaries. There is flattening of the ventricular septum and right ventricular strain is difficult to exclude.
[2019-08-29] MEDS ORDERED: HEPARIN SODIUM,PORCINE 10,000 UNIT/ML 1 ML VIAL IV ONE (12:33)
[2019-08-29] MEDS ORDERED: HEPARIN SODIUM,PORCINE 5,000 UNIT/ML 1 ML VIAL IV PRN (12:33)
--- NOTE | 2019-08-29 12:39 | ED ---
Medical Decision Making - Medical Decision Making Patient persisted having shortness of breath and low grade tachycardia. A CAT scan was performed with IV contrast. Dr. Omalley did call me from the radiology department patient does have evidence of bilateral pulmonary emboli. This does have evidence of a thrombus in the descending aorta. No evidence of dissection. There is some indirect evidence of heart strain. I did discuss this with the patient's was present also with Dr. Morillo who did come the emergency department to see the patient. Patient will be started on IV heparin high-dose. - Lab Data Result diagrams: 08/29/19 09:01 08/29/19 09:01 Lab Results 08/29/19 08/29/19 08/29/19 Range/Units 09:01 09:01 09:01 WBC 3.5 L (3.8-10.6) k/uL RBC 4.69 (4.30-5.90) m/uL Hgb 14.8 (13.0-17.5) gm/dL Hct 44.4 (39.0-53.0) % MCV 94.6 (80.0-100.0) fL MCH 31.5 (25.0-35.0) pg MCHC 33.3 (31.0-37.0) g/dL RDW 14.5 (11.5-15.5) % Plt Count 88 L (150-450) k/uL Neutrophils % (Manual) 60 % Band Neutrophils % 1 % Lymphocytes % (Manual) 26 % Monocytes % (Manual) 13 % Other Cells % % Neutrophils # (Manual) 2.10 (1.3-7.7) k/uL Lymphocytes # (Manual) 0.91 L (1.0-4.8) k/uL Monocytes # (Manual) 0.46 (0-1.0) k/uL Nucleated RBCs 0 (0-0) /100 WBC Manual Slide Review Performed RBC Morphology Normal PT 11.6 (9.0-12.0) sec INR 1.1 (<1.2) APTT 24.0 (22.0-30.0) sec Sodium 135 L (137-145) mmol/L Potassium 4.4 (3.5-5.1) mmol/L Chloride 102 (98-107) mmol/L Carbon Dioxide 24 (22-30) mmol/L Anion Gap 9 mmol/L BUN 22 H (9-20) mg/dL Creatinine 1.12 (0.66-1.25) mg/dL Est GFR (CKD-EPI)AfAm 75 (>60 ml/min/1.73 sqM) Est GFR (CKD-EPI)NonAf 65 (>60 ml/min/1.73 sqM) Glucose 140 H (74-99) mg/dL Calcium 8.5 (8.4-10.2) mg/dL Magnesium 1.9 (1.6-2.3) mg/dL Total Bilirubin 0.7 (0.2-1.3) mg/dL AST 26 (17-59) U/L ALT 24 (4-49) U/L Alkaline Phosphatase 85 (38-126) U/L Creatine Kinase 38 L (55-170) U/L Troponin I (0.000-0.034) ng/mL NT-Pro-B Natriuret Pep pg/mL Total Protein 6.2 L (6.3-8.2) g/dL Albumin 3.3 L (3.5-5.0) g/dL 08/29/19 08/29/19 Range/Units 09:01 09:01 WBC (3.8-10.6) k/uL RBC (4.30-5.90) m/uL Hgb (13.0-17.5) gm/dL Hct (39.0-53.0) % MCV (80.0-100.0) fL MCH (25.0-35.0) pg MCHC (31.0-37.0) g/dL RDW (11.5-15.5) % Plt Count (150-450) k/uL Neutrophils % (Manual) % Band Neutrophils % % Lymphocytes % (Manual) % Monocytes % (Manual) % Other Cells % % Neutrophils # (Manual) (1.3-7.7) k/uL Lymphocytes # (Manual) (1.0-4.8) k/uL Monocytes # (Manual) (0-1.0) k/uL Nucleated RBCs (0-0) /100 WBC Manual Slide Review RBC Morphology PT (9.0-12.0) sec INR (<1.2) APTT (22.0-30.0) sec Sodium (137-145) mmol/L Potassium (3.5-5.1) mmol/L Chloride (98-107) mmol/L Carbon Dioxide (22-30) mmol/L Anion Gap mmol/L BUN (9-20) mg/dL Creatinine (0.66-1.25) mg/dL Est GFR (CKD-EPI)AfAm (>60 ml/min/1.73 sqM) Est GFR (CKD-EPI)NonAf (>60 ml/min/1.73 sqM) Glucose (74-99) mg/dL Calcium (8.4-10.2) mg/dL Magnesium (1.6-2.3) mg/dL Total Bilirubin (0.2-1.3) mg/dL AST (17-59) U/L ALT (4-49) U/L Alkaline Phosphatase (38-126) U/L Creatine Kinase (55-170) U/L Troponin I 0.047 H* (0.000-0.034) ng/mL NT-Pro-B Natriuret Pep 312 pg/mL Total Protein (6.3-8.2) g/dL Albumin (3.5-5.0) g/dL Disposition Clinical Impression: Syncope and collapse, Dehydration, Bradycardia, Elevated troponin, Head and neck cancer, Vomiting, Bronchospasm, Tachycardia, Pulmonary embolism Disposition: ADMITTED IP TO THIS HOSP Condition: Fair
--- NOTE | 2019-08-29 12:44 | ED ---
Medical Decision Making - Medical Decision Making The patient will ask to be admitted to Dr. Wei. The case was discussed with him. Consultations will continue in addition to pulmonary medicine - Lab Data Result diagrams: 08/29/19 09:01 08/29/19 09:01 Lab Results 08/29/19 08/29/19 08/29/19 Range/Units 09:01 09:01 09:01 WBC 3.5 L (3.8-10.6) k/uL RBC 4.69 (4.30-5.90) m/uL Hgb 14.8 (13.0-17.5) gm/dL Hct 44.4 (39.0-53.0) % MCV 94.6 (80.0-100.0) fL MCH 31.5 (25.0-35.0) pg MCHC 33.3 (31.0-37.0) g/dL RDW 14.5 (11.5-15.5) % Plt Count 88 L (150-450) k/uL Neutrophils % (Manual) 60 % Band Neutrophils % 1 % Lymphocytes % (Manual) 26 % Monocytes % (Manual) 13 % Other Cells % % Neutrophils # (Manual) 2.10 (1.3-7.7) k/uL Lymphocytes # (Manual) 0.91 L (1.0-4.8) k/uL Monocytes # (Manual) 0.46 (0-1.0) k/uL Nucleated RBCs 0 (0-0) /100 WBC Manual Slide Review Performed RBC Morphology Normal PT 11.6 (9.0-12.0) sec INR 1.1 (<1.2) APTT 24.0 (22.0-30.0) sec Sodium 135 L (137-145) mmol/L Potassium 4.4 (3.5-5.1) mmol/L Chloride 102 (98-107) mmol/L Carbon Dioxide 24 (22-30) mmol/L Anion Gap 9 mmol/L BUN 22 H (9-20) mg/dL Creatinine 1.12 (0.66-1.25) mg/dL Est GFR (CKD-EPI)AfAm 75 (>60 ml/min/1.73 sqM) Est GFR (CKD-EPI)NonAf 65 (>60 ml/min/1.73 sqM) Glucose 140 H (74-99) mg/dL Calcium 8.5 (8.4-10.2) mg/dL Magnesium 1.9 (1.6-2.3) mg/dL Total Bilirubin 0.7 (0.2-1.3) mg/dL AST 26 (17-59) U/L ALT 24 (4-49) U/L Alkaline Phosphatase 85 (38-126) U/L Creatine Kinase 38 L (55-170) U/L Troponin I (0.000-0.034) ng/mL NT-Pro-B Natriuret Pep pg/mL Total Protein 6.2 L (6.3-8.2) g/dL Albumin 3.3 L (3.5-5.0) g/dL 08/29/19 08/29/19 Range/Units 09:01 09:01 WBC (3.8-10.6) k/uL RBC (4.30-5.90) m/uL Hgb (13.0-17.5) gm/dL Hct (39.0-53.0) % MCV (80.0-100.0) fL MCH (25.0-35.0) pg MCHC (31.0-37.0) g/dL RDW (11.5-15.5) % Plt Count (150-450) k/uL Neutrophils % (Manual) % Band Neutrophils % % Lymphocytes % (Manual) % Monocytes % (Manual) % Other Cells % % Neutrophils # (Manual) (1.3-7.7) k/uL Lymphocytes # (Manual) (1.0-4.8) k/uL Monocytes # (Manual) (0-1.0) k/uL Nucleated RBCs (0-0) /100 WBC Manual Slide Review RBC Morphology PT (9.0-12.0) sec INR (<1.2) APTT (22.0-30.0) sec Sodium (137-145) mmol/L Potassium (3.5-5.1) mmol/L Chloride (98-107) mmol/L Carbon Dioxide (22-30) mmol/L Anion Gap mmol/L BUN (9-20) mg/dL Creatinine (0.66-1.25) mg/dL Est GFR (CKD-EPI)AfAm (>60 ml/min/1.73 sqM) Est GFR (CKD-EPI)NonAf (>60 ml/min/1.73 sqM) Glucose (74-99) mg/dL Calcium (8.4-10.2) mg/dL Magnesium (1.6-2.3) mg/dL Total Bilirubin (0.2-1.3) mg/dL AST (17-59) U/L ALT (4-49) U/L Alkaline Phosphatase (38-126) U/L Creatine Kinase (55-170) U/L Troponin I 0.047 H* (0.000-0.034) ng/mL NT-Pro-B Natriuret Pep 312 pg/mL Total Protein (6.3-8.2) g/dL Albumin (3.5-5.0) g/dL Disposition Clinical Impression: Syncope and collapse, Dehydration, Bradycardia, Elevated troponin, Head and neck cancer, Vomiting, Bronchospasm, Tachycardia, Pulmonary embolism Disposition: ADMITTED IP TO THIS HOSP Condition: Fair
[2019-08-29] MEDS: HEPARIN SOD,PORK IN 0.45% NACL 25,000 UNIT in 0.45% NACL 1 250ML.BAG IV SCH (12:49)
[2019-08-29] MEDS: SODIUM CHLORIDE 0.9% 1,000 ML IV SCH ×2 (12:50→21:26)
[2019-08-29 14:42] LABS: Glucose,Whole Blood 130 mg/dL (75-99)
--- NOTE | 2019-08-29 15:20 | P.CNPUL ---
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 This occurred while him having radiation oncology visitation. The physicians attended on him and MATTHIAS YAÑEZ was called. The patient was found to be awake and alert, however this neck and he was having children will breathing and he was short of breath. He was also bradycardic according to report with a heart rate being around mid-forties. No fever. No chills. No night sweats. No reported chest pain. He came into the emergency department with his initial blood pressure was 86/64, and he was afebrile with a tachycardia and a heart rate ranging between 100-112. He was started on IV fluids. Blood work was done and the patient's white cell count was at 3.4 with a hemoglobin of 14.8. His platelet count was 88. His troponin was at 0.047. BNP level was 312. Creatinine was 1.1. Coagulation profile was within normal limits. A CT angios was done and the patient was found to have bilateral pulmonary embolism involving the bilateral pulmonary arteries. His thrombus with extending into the secondary and tertiary branches and lower lobe branches. There was some flattening of the ventricular septum and right ventricular strain was also suggested. The lungs are otherwise clear and there was some scattered atelectatic changes were noted. No evidence of any pleural effusion. The patient was sudden IV heparin. The patient had a trauma and the bruise around his left orbit and for that reason a CAT scan of the head and cervical spine was done and it showed no acute abnormalities. He also sustained some lacerations of these right shoulder skin area. No CPR was done as the patient did not lose any pulse or blood pressure. Note that this patient has had previous history of hypertension and hyperlipidemia. He has coronary artery disease and he has undergone a stenting of the mid LAD in April 2005. His last cardiac catheterization from November 2017 showed patent coronary arteries and medical treatment was recommended. More recently, the patient was diagnosed having a right neck mass of 6 weeks duration. CAT scan of the neck that was done on 06/06/2019 revealed some internal jugular adenopathy and one of the lymph nodes was measuring up to 2 cm in size. 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 CAT scan of the done showed suspicious uptake in the 2 of the right cervical lymph nodes and increased uptake within the right hypopharynx. Biopsy of the right tonsil was done by ENT and was also consistent with malignancy. He has a PEG tube in place for enteral feeding and nutritional support. Review of Systems Constitutional: Reports fatigue Eyes: denies as per HPI, denies blurred vision, denies bulging eye, denies decreased vision, denies diplopia, denies discharge, denies dry eye, denies irritation, denies itching, denies pain, denies photophobia, denies loss of peripheral vision, denies loss of vision, denies tunnel vision/blind spots Ears: deny: decreased hearing, ear discharge, earache, tinnitus Ears, nose, mouth and throat: Reports as per HPI Breasts: absent: as per HPI, gynecomastia Cardiovascular: Reports as per HPI Respiratory: Reports as per HPI Gastrointestinal: Reports as per HPI Genitourinary: Reports as per HPI Musculoskeletal: Reports as per HPI Musculoskeletal: absent: ankle pain, ankle stiffness, ankle swelling Integumentary: Reports as per HPI Neurological: Reports syncope Psychiatric: Reports as per HPI Endocrine: Reports as per HPI Hematologic/Lymphatic: Reports as per HPI Allergic/Immunologic: Reports as per HPI Past Medical History Past Medical History: Coronary Artery Disease (CAD), Cancer, Chest Pain / Angina, Eye Disorder, Hearing Disorder / Deafness, Hyperlipidemia, Hypertension, Osteoarthritis (OA), Sleep Apnea/CPAP/BIPAP Additional Past Medical History / Comment(s): Tonsillar cancer, coronary artery disease, hypertension, hyperlipidemia, osteoarthritis, obstructive sleep apnea, skin cancer, cataracts. 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 CATARACT RIGHT EYE-WITH LENS IMPLANT Past Anesthesia/Blood Transfusion Reactions: No Reported Reaction Date of Last Stent Placement:: 2006 Past Psychological History: No Psychological Hx Reported Smoking Status: Former smoker - Past Family History Mother Family Medical History: No Reported History Medications and Allergies Home Medications Medication Instructions Recorded Confirmed Type Donepezil [Aricept] 10 mg PO HS 01/16/14 08/29/19 History Multivitamins, Thera [Multivitamin] 1 tab PO HS 01/16/14 08/29/19 History Aspirin [Adult Low Dose Aspirin EC] 81 mg PO HS 11/12/17 08/29/19 History Atorvastatin [Lipitor] 20 mg PO HS 11/12/17 08/29/19 History Metoprolol Tartrate [Lopressor] 12.5 mg PO HS 11/12/17 08/29/19 History Sertraline [Zoloft] 50 mg PO HS 11/12/17 08/29/19 History Pramipexole Di-HCl [Mirapex] 1 mg PO HS 11/29/18 08/29/19 History Aprepitant [Emend] 80 mg PO DIRECTED 08/29/19 08/29/19 History Dexamethasone 8 mg PO DIRECTED 08/29/19 08/29/19 History Fluconazole [Diflucan] 100 mg PO DAILY PRN 08/29/19 08/29/19 History Hydrocodone/Acetaminophen [[place] 1 tab PO Q8H PRN 08/29/19 08/29/19 History 5-325] Lidocaine Viscous 2% [Xylocaine 10 ml MUCOUS MEM ACHS 08/29/19 08/29/19 History Viscous] Omeprazole [PriLOSEC] 20 mg PO HS 08/29/19 08/29/19 History Ondansetron HCl [Zofran] 8 mg PO Q8H PRN 08/29/19 08/29/19 History SILVER sulfADIAZINE Cream 1 applic TOPICAL BID 08/29/19 08/29/19 History [Silvadene 1% Cream] risperiDONE 0.5 mg PO HS 08/29/19 08/29/19 History Allergies Allergy/AdvReac Type Severity Reaction Status Date / Time No Known Allergies Allergy Verified 08/29/19 11:06 Physical Exam Vitals: Vital Signs Temp Pulse Pulse Resp BP Pulse Ox 08/29/19 14:21 98.0 F 112 H 18 97/71 94 L 08/29/19 12:56 121 H 26 H 90/71 92 L 08/29/19 11:04 120 H 24 100/80 96 08/29/19 09:41 111 H 20 98/58 93 L 08/29/19 09:12 112 H 08/29/19 09:01 112 H 08/29/19 08:50 109 H 08/29/19 08:41 98.2 F 112 H 18 114/84 Intake and Output 08/28/19 08/29/19 08/29/19 22:59 06:59 14:59 Other: Weight 117.934 kg The patient appeared well nourished and normally developed. Vital signs as documented. Head exam is unremarkable. The patient has a bruise around his left eyelid and orbits. No obvious facial deformity. No scleral icterus or corneal arcus noted. Neck is without jugular venous distension, thyromegaly, or carotid bruits. Carotid upstrokes are brisk bilaterally. Lungs are clear to auscultation and percussion. Cardiac exam reveals the PMI to be normally sized and situated. Rhythm is regular. First and second heart sounds normal. No murmurs, rubs or gallops. Abdominal exam reveals normal bowel sounds, no masses, no organomegaly and no aortic enlargement. The patient is a PEG tube in place for enteral feeding and nutritional support. Extremities are nonedematous and both femoral and pedal pulses are normal.Examination of the skin revealed no evidence of significant rashes, suspicious appearing nevi or other concerning lesions. The patient has an abrasion of the skin over the right upper shoulder area. Neurologically awake and alert and is not in this. Results - Laboratory Findings CBC and BMP: 08/29/19 09:01 08/29/19 09:01 PT/INR, D-dimer PT 11.6 sec (9.0-12.0) 08/29/19 09:01 INR 1.1 (<1.2) 08/29/19 09:01 Abnormal lab findings: Abnormal Labs 08/29/19 08/29/19 08/29/19 09:01 09:01 09:01 WBC 3.5 L Plt Count 88 L Lymphocytes # (Manual) 0.91 L Sodium 135 L BUN 22 H Glucose 140 H Creatine Kinase 38 L Troponin I 0.047 H* Total Protein 6.2 L Albumin 3.3 L - Diagnostic Findings Chest x-ray: image reviewed CT scan - chest: image reviewed Assessment and Plan Plan: 1 acute bilateral pulmonary embolism, currently on IV heparin 2 lightheadedness/presyncope, likely secondary to pulmonary embolism, with limited trauma to the left orbital area with secondary bruising and some skin abrasion. CAT scan of the brain is negative for any acute changes. CAT scan of the C-spine was negative. 3 tonsillar cancer, as the patient presented with a right neck mass and he was found to have cervical lymphadenopathy fine-needle of which was consistent with squamous cell carcinoma and furthermore PET scan revealed intense uptake within the cervical lymph nodes and the hypopharyngeal area and the patient was fu rthermore found to have a tonsillar mass and biopsy was consistent. Currently undergoing chemoradiation therapy. 4 thrombocytopenia 5 abnormal troponin is likely secondary to pulmonary embolism. EKG showing sinus tachycardia with a right bundle branch block pattern 6 coronary artery disease with remote stenting of the LAD with last cardiac catheterization being in 2018 showing patent coronaries and stent 7 hypertension 8 hyperlipidemia 9 obstructive sleep apnea maintained on CPAP therapy 10 history of skin cancer 11 history of cataracts 12 enteral feeding for nutritional support via PEG tube. 13 sinus tachycardia secondary to above. Could be also a component of dehydration Plan IV fluids Continue IV heparin Check echocardiogram Check Doppler of the lower extremities Monitor the platelet count Resume home medications
--- NOTE | 2019-08-29 16:41 | US ---
EXAMINATION TYPE: US venous doppler duplex LE BI DATE OF EXAM: 08/29/2019 4:11 PM COMPARISON: NONE CLINICAL HISTORY: R/O DVT . PE SIDE PERFORMED: bilateral TECHNIQUE: The lower extremity deep venous system is examined utilizing real time linear array sonog keren with graded compression, doppler sonography and color-flow sonography. VESSELS IMAGED: External Iliac Vein (EIV) Common Femoral Vein Deep Femoral Vein Greater Saphenous Vein * Femoral Vein Popliteal Vein Small Saphenous Vein * Proximal Calf Veins (* superficial vessels) Right Leg: *Positive for DVT right femoral vein extending into popliteal vein Left Leg: no evidence of DVT IMPRESSION: No evidence of deep vein thrombosis in the left leg. There is evidence of acute deep vein thrombosis involving the entire right femoral vein and part of t he popliteal vein.
[2019-08-29] MEDS ORDERED: FLUCONAZOLE 100 MG TAB PO PRN (17:35)
[2019-08-29] MEDS ORDERED: ONDANSETRON 4 MG TAB PO PRN (17:35)
--- NOTE | 2019-08-29 17:38 | P.HPIM ---
History of Present Illness H&P Date: 08/29/19 Michael Cintron is a 74-year-old male who was having any radiation oncology visit for tonsillar cancer, when he felt dizzy and lightheaded, [facility] was called, however patient was found to to be conscious with evidence of bradycardia, patient was complaining of shortness of breath but no chest pain, he had the bruise around the left eye which patient states is new, patient also has laceration around the shoulders and the right pretibial area, he was brought into emergency room and was evaluated, computed tomography scan angiogram of the lungs revealed evidence of bilateral pulmonary embolism, he was started on IV heparin and was admitted to intensive care unit. Patient has a known history of coronary artery disease with stent placement in 2005, he also has a recent diagnosis of tonsillar cancer diagnosed 2 months ago. Patient was seen and examined in intensive care unit he is alert and oriented 3 in no apparent distress, he denies any symptoms at this time, there is no fever or chills no headache or dizziness no chest pain, currently he has no shortness of breath he is maintained on oxygen via nasal cannula at 2 L/m, there is no cough no nausea or vomiting no abdominal pain no diarrhea no blood in the stools no burning was urination no frequency or urgency and no hematuria. Patient recently had PEG tube placed. Past Medical History Past Medical History: Coronary Artery Disease (CAD), Cancer, Chest Pain / Angina, Eye Disorder, Hearing Disorder / Deafness, Hyperlipidemia, Hypertension, Osteoarthritis (OA), Sleep Apnea/CPAP/BIPAP Additional Past Medical History / Comment(s): Tonsillar cancer, coronary artery disease, hypertension, hyperlipidemia, osteoarthritis, obstructive sleep apnea, skin cancer, cataracts. 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 CATARACT RIGHT EYE-WITH LENS IMPLANT Past Anesthesia/Blood Transfusion Reactions: No Reported Reaction Date of Last Stent Placement:: 2006 Smoking Status: Former smoker - Past Family History Mother Family Medical History: No Reported History Medications and Allergies Home Medications Medication Instructions Recorded Confirmed Type Donepezil [Aricept] 10 mg PO HS 01/16/14 08/29/19 History Multivitamins, Thera [Multivitamin] 1 tab PO HS 01/16/14 08/29/19 History Aspirin [Adult Low Dose Aspirin EC] 81 mg PO HS 11/12/17 08/29/19 History Atorvastatin [Lipitor] 20 mg PO HS 11/12/17 08/29/19 History Metoprolol Tartrate [Lopressor] 12.5 mg PO HS 11/12/17 08/29/19 History Sertraline [Zoloft] 50 mg PO HS 11/12/17 08/29/19 History Pramipexole Di-HCl [Mirapex] 1 mg PO HS 11/29/18 08/29/19 History Aprepitant [Emend] 80 mg PO DIRECTED 08/29/19 08/29/19 History Dexamethasone 8 mg PO DIRECTED 08/29/19 08/29/19 History Fluconazole [Diflucan] 100 mg PO DAILY PRN 08/29/19 08/29/19 History Hydrocodone/Acetaminophen [[place] 1 tab PO Q8H PRN 08/29/19 08/29/19 History 5-325] Lidocaine Viscous 2% [Xylocaine 10 ml MUCOUS MEM ACHS 08/29/19 08/29/19 History Viscous] Omeprazole [PriLOSEC] 20 mg PO HS 08/29/19 08/29/19 History Ondansetron HCl [Zofran] 8 mg PO Q8H PRN 08/29/19 08/29/19 History SILVER sulfADIAZINE Cream 1 applic TOPICAL BID 08/29/19 08/29/19 History [Silvadene 1% Cream] risperiDONE 0.5 mg PO HS 08/29/19 08/29/19 History Allergies Allergy/AdvReac Type Severity Reaction Status Date / Time No Known Allergies Allergy Verified 08/29/19 11:06 Physical Exam Vitals: Vital Signs Temp Pulse Pulse Resp BP Pulse Ox 08/29/19 14:21 98.0 F 112 H 18 97/71 94 L 08/29/19 12:56 121 H 26 H 90/71 92 L 08/29/19 11:04 120 H 24 100/80 96 08/29/19 09:41 111 H 20 98/58 93 L 08/29/19 09:12 112 H 08/29/19 09:01 112 H 08/29/19 08:50 109 H 08/29/19 08:41 98.2 F 112 H 18 114/84 Intake and Output 08/29/19 08/29/19 08/29/19 06:59 14:59 22:59 Other: Weight 119 kg In general patient is alert and oriented 3 in no apparent distress HEENT head normocephalic there is a bruise with small hematoma around the left eye Neck is supple no JVD no goiter no lymphadenopathy Chest exam reveals a scattered crackles bilaterally no wheezing Cardiac exam reveals regular heart sounds no gallops no murmurs Abdomen is soft nontender no organomegaly with normal bowel sounds Extremity exam reveals the right lower extremity larger than the left with edema his laceration in the right pretibial area Neurological examination reveals no gross focal deficit Results CBC & Chem 7: 08/29/19 09:01 08/29/19 09:01 Labs: Abnormal Lab Results - Last 24 Hours (Table) 08/29/19 08/29/19 08/29/19 Range/Units 09:01 09:01 09:01 WBC 3.5 L (3.8-10.6) k/uL Plt Count 88 L (150-450) k/uL Lymphocytes # (Manual) 0.91 L (1.0-4.8) k/uL Sodium 135 L (137-145) mmol/L BUN 22 H (9-20) mg/dL Glucose 140 H (74-99) mg/dL POC Glucose (mg/dL) (75-99) mg/dL Creatine Kinase 38 L (55-170) U/L Troponin I 0.047 H* (0.000-0.034) ng/mL Total Protein 6.2 L (6.3-8.2) g/dL Albumin 3.3 L (3.5-5.0) g/dL 08/29/19 Range/Units 14:39 WBC (3.8-10.6) k/uL Plt Count (150-450) k/uL Lymphocytes # (Manual) (1.0-4.8) k/uL Sodium (137-145) mmol/L BUN (9-20) mg/dL Glucose (74-99) mg/dL POC Glucose (mg/dL) 130 H (75-99) mg/dL Creatine Kinase (55-170) U/L Troponin I (0.000-0.034) ng/mL Total Protein (6.3-8.2) g/dL Albumin (3.5-5.0) g/dL Thrombosis Risk Factor Assmnt - Choose All That Apply Any of the Below Risk Factors Present?: Yes Each Risk Factor Represents 2 Points: Age 61-74 years, Malignancy Thrombosis Risk Factor Assessment Total Risk Factor Score: 4 Thrombosis Risk Factor Assessment Level: Moderate Risk Assessment and Plan Plan: 1. Acute bilateral pulmonary embolism, started on IV heparin in the emergency room. 2. Dizziness and presyncope with fall and head trauma with a hematoma around the left eye 3. 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 4. Mild elevation in troponin level likely related to pulmonary embolism 5. Underlying history of coronary artery disease with remote history of angioplasty and stent placement 6. Recent placement of PEG tube for feeding 7. Underlying history of hypertension 8. Underlying history of hyperlipidemia 9. Underlying history of obstructive sleep apnea maintained on CPAP at home At this time patient is admitted to intensive care unit he was started on IV heparin cardiology and pulmonary consultation were requested Home medication reviewed, and reorder Oncology consultation added Will follow closely
[2019-08-29] MEDS ORDERED: APREPITANT 80 MG PO SCH (17:45)
[2019-08-29] MEDS ORDERED: DEXAMETHASONE 4 MG TAB PO SCH (17:45)
--- NOTE | 2019-08-29 18:50 | CONS ---
CONSULTATION CHIEF COMPLAINT: Syncope. Michael is a 74-year-old gentleman with a history of tonsillar cancer who was at [facility] for radiation therapy and suddenly passed out. He underwent CPR and was resuscitated. Workup has revealed bilateral pulmonary embolism. I am seeing the patient for the same. At the time of my evaluation, patient appears comfortable at rest. Denies chest pain or difficulty in breathing. Has sinus tachycardia. Patient has known coronary artery disease and had prior angioplasty with stent placement by Dr. Trevon Celeste, has tonsillar cancer that was diagnosed 2 months ago. PAST MEDICAL HISTORY: Past medical history is significant for coronary artery disease, hypertension, dyslipidemia, arthritis, sleep apnea, on BiPAP machine, shoulder surgery, knee surgery, cataract surgery. MEDICATIONS: Medications at home include dexamethasone, diflucan, Narcan, [place], Mirapex, Lopressor, Aricept, Lipitor and aspirin. ALLERGIES: There are NO KNOWN DRUG ALLERGIES. FAMILY HISTORY: Negative for premature coronary artery disease. SOCIAL HISTORY: Negative for current smoking, EtOH abuse or drug abuse. REVIEW OF SYSTEMS: HEENT is unremarkable. CARDIAC: As described above. RESPIRATORY: As described above. GI: Negative. GENITOURINARY: Negative. ALLERGY: None. IMMUNOLOGY: Negative. SKIN: Negative. MUSCULOSKELETAL: Negative. ENDOCRINE: Negative. CONSTITUTIONAL: Negative. ONCOLOGICAL: Significant for tonsillar cancer. HAMMER ADJUSTER: Significant for syncope. PHYSICAL EXAMINATION: Heart rate is 110 beats per minute. Blood pressure is 97/70, respiratory rate 18, oxygen saturation 94% on 2 L. There is no jugular venous distention. Carotid upstroke is diminished. There is no bruit. Chest exam reveals good air entry bilaterally. I do not hear any crackles or rhonchi. Heart exam reveals first and second heart sounds. No gallop. Abdomen is soft. Examination of extremities reveals mild bilateral edema. Peripheral pulses are felt. LABS: Hemoglobin of 14.8, platelet count is 88. Troponin is elevated at 0.047. BNP is normal. Creatinine is 1.1. EKG shows sinus tachycardia, right bundle branch block and left axis deviation. ASSESSMENT: 1. Syncope secondary to acute bilateral pulmonary embolism. 2. Coronary artery disease, status post angioplasty. 3. Carcinoma of the tonsils, status post radiation. PLAN: I will treat the patient with intravenous heparin, obtain a 2D echo. Continue aspirin and Lipitor that the patient is currently on. MMODL / IJN: [id number] /
[2019-08-29] MEDS ORDERED: NON FORMULARY DRUG (Omeprazole 20 MG) PO SCH (21:00)
[2019-08-29 21:13] LABS: HCT 41.8 % (39.0-53.0); HGB 13.6 gm/dL (13.0-17.5); MCH 31.1 pg (25.0-35.0); MCHC 32.6 g/dL (31.0-37.0); MCV 95.4 fL (80.0-100.0); Mean Platelet Volume 7.6; Platelet Count 93 k/uL (150-450); RBC 4.38 m/uL (4.30-5.90); RDW 14.8 % (11.5-15.5)
[2019-08-29] MEDS: PRAMIPEXOLE 1 MG TAB PO SCH (21:25)
[2019-08-29] MEDS: DONEPEZIL 10 MG TAB PO SCH (21:26)
[2019-08-29] MEDS: METOPROLOL TARTRATE 12.5 MG TAB PO SCH (21:26)
[2019-08-29] MEDS: SERTRALINE 50 MG TAB PO SCH (21:26)
[2019-08-29] MEDS: risperiDONE 0.5 MG TAB PO SCH (21:26)
[2019-08-29] MEDS: MULTIVITAMINS, THERA 1 EACH TAB PO SCH (21:26)
[2019-08-29] MEDS: LIDOCAINE VISCOUS 2% 15 ML CUP MUCOUS MEM SCH (21:26)
[2019-08-29] MEDS: ASPIRIN 81 MG PO SCH (21:26)
[2019-08-29] MEDS: ATORVASTATIN 20 MG TAB PO SCH (21:26)
[2019-08-29 22:00] LABS: Band Neutrophils % 8 %; Lymphocytes # (M) 0.93 k/uL (1.0-4.8); Monocytes # (M) 0.42 k/uL (0-1.0); Neutrophils % (M) 47 %; Nucleated Red Blood Cells 0 /100 WBC (0-0); Total Cells Counted 100
[2019-08-30] MEDS: HEPARIN SOD,PORK IN 0.45% NACL 25,000 UNIT in 0.45% NACL 1 250ML.BAG IV SCH ×3 (02:49→20:49)
[2019-08-30] MEDS: SODIUM CHLORIDE 0.9% 1,000 ML IV SCH ×2 (02:49→12:12)
[2019-08-30 05:04] LABS: Basophils % (A) 0 %; Eosinophils % (A) 1 %; HCT 39.7 % (39.0-53.0); HGB 12.7 gm/dL (13.0-17.5); Lymphocytes # (A) 0.5 k/uL (1.0-4.8); Lymphocytes % (A) 21 %; MCH 30.8 pg (25.0-35.0); MCV 96.2 fL (80.0-100.0); Mean Platelet Volume 7.8; Monocytes # (A) 0.2 k/uL (0-1.0); Monocytes % (A) 8 %; Neutrophils # (A) 1.7 k/uL (1.3-7.7); Neutrophils % (A) 66 %; RBC 4.12 m/uL (4.30-5.90); RDW 14.7 % (11.5-15.5); WBC 2.6 k/uL (3.8-10.6)
[2019-08-30 06:01] LABS: Potassium 4.5 mmol/L (3.5-5.1)
[2019-08-30] MEDS: LIDOCAINE VISCOUS 2% 15 ML CUP MUCOUS MEM SCH ×3 (06:01→18:28)
[2019-08-30 07:25] LABS: Platelet Count 81 k/uL (150-450)
[2019-08-30] MEDS: PANTOPRAZOLE 40 MG/10 ML VIAL IV SCH (08:25)
--- NOTE | 2019-08-30 08:42 | P.PN ---
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 Patient has a known history of coronary artery disease with stent placement in 2005, he also has a recent diagnosis of tonsillar cancer diagnosed 2 months ago. Patient was seen and examined in intensive care unit he is alert and oriented 3 in no apparent distress, he denies any symptoms at this time, there is no fever or chills no headache or dizziness no chest pain, currently he has no shortness of breath he is maintained on oxygen via nasal cannula at 2 L/m, there is no cough no nausea or vomiting no abdominal pain no diarrhea no blood in the stools no burning was urination no frequency or urgency and no hematuria. Patient recently had PEG tube placed. Objective - Vital Signs Vital signs: Vital Signs Temp 97.9 F 08/30/19 04:00 Pulse 65 08/30/19 04:00 Resp 20 08/30/19 04:00 BP 91/75 08/30/19 04:00 Pulse Ox 96 08/30/19 04:00 Intake & Output 08/29/19 08/30/19 08/30/19 18:59 06:59 18:59 Intake Total 288.701 0 Output Total 400 Balance -111.299 0 Weight 119.4 kg Intake: Intake, IV Titration 288.701 0 Amount Heparin Sod,Pork in 0.45% 288.701 0 NaCl 25,000 unit In 0.45 % NaCl 1 250ml.bag @ 18 UNITS/KG/HR 21.228 mls/hr IV .[id number] [facility] Rx#: [id number] Output: Urine 400 - Exam In general patient is alert and oriented 3 in no apparent distress HEENT head normocephalic there is a bruise with hematoma around the left eye, which is worse than yesterday Neck is supple no JVD no goiter no lymphadenopathy Chest exam reveals a scattered crackles bilaterally no wheezing Cardiac exam reveals regular heart sounds no gallops no murmurs Abdomen is soft nontender no organomegaly with normal bowel sounds Extremity exam reveals the right lower extremity larger than the left with edema his laceration in the right pretibial area Neurological examination reveals no gross focal deficit - Labs CBC & Chem 7: 08/30/19 03:50 08/30/19 03:50 Labs: Abnormal Lab Results - Last 24 Hours (Table) 08/29/19 08/29/19 08/29/19 Range/Units 09:01 09:01 09:01 WBC 3.5 L (3.8-10.6) k/uL RBC (4.30-5.90) m/uL Hgb (13.0-17.5) gm/dL Plt Count 88 L (150-450) k/uL Lymphocytes # (1.0-4.8) k/uL Lymphocytes # (Manual) 0.91 L (1.0-4.8) k/uL APTT (22.0-30.0) sec Sodium 135 L (137-145) mmol/L Carbon Dioxide (22-30) mmol/L BUN 22 H (9-20) mg/dL Glucose 140 H (74-99) mg/dL POC Glucose (mg/dL) (75-99) mg/dL Calcium (8.4-10.2) mg/dL Creatine Kinase 38 L (55-170) U/L Troponin I 0.047 H* (0.000-0.034) ng/mL Total Protein 6.2 L (6.3-8.2) g/dL Albumin 3.3 L (3.5-5.0) g/dL 08/29/19 08/29/19 08/29/19 Range/Units 14:39 16:39 19:12 WBC (3.8-10.6) k/uL RBC (4.30-5.90) m/uL Hgb (13.0-17.5) gm/dL Plt Count (150-450) k/uL Lymphocytes # (1.0-4.8) k/uL Lymphocytes # (Manual) (1.0-4.8) k/uL APTT >200.0 H* (22.0-30.0) sec Sodium (137-145) mmol/L Carbon Dioxide (22-30) mmol/L BUN (9-20) mg/dL Glucose (74-99) mg/dL POC Glucose (mg/dL) 130 H (75-99) mg/dL Calcium (8.4-10.2) mg/dL Creatine Kinase (55-170) U/L Troponin I 1.760 H* (0.000-0.034) ng/mL Total Protein (6.3-8.2) g/dL Albumin (3.5-5.0) g/dL 08/29/19 08/29/19 08/30/19 Range/Units 20:41 20:48 03:50 WBC 3.0 L 2.6 L (3.8-10.6) k/uL RBC 4.12 L (4.30-5.90) m/uL Hgb 12.7 L (13.0-17.5) gm/dL Plt Count 93 L 81 L (150-450) k/uL Lymphocytes # 0.5 L (1.0-4.8) k/uL Lymphocytes # (Manual) 0.93 L (1.0-4.8) k/uL APTT >200.0 H* (22.0-30.0) sec Sodium (137-145) mmol/L Carbon Dioxide (22-30) mmol/L BUN (9-20) mg/dL Glucose (74-99) mg/dL POC Glucose (mg/dL) (75-99) mg/dL Calcium (8.4-10.2) mg/dL Creatine Kinase (55-170) U/L Troponin I (0.000-0.034) ng/mL Total Protein (6.3-8.2) g/dL Albumin (3.5-5.0) g/dL 08/30/19 08/30/19 Range/Units 03:50 03:50 WBC (3.8-10.6) k/uL RBC (4.30-5.90) m/uL Hgb (13.0-17.5) gm/dL Plt Count (150-450) k/uL Lymphocytes # (1.0-4.8) k/uL Lymphocytes # (Manual) (1.0-4.8) k/uL APTT 147.2 H* (22.0-30.0) sec Sodium 133 L (137-145) mmol/L Carbon Dioxide 20 L (22-30) mmol/L BUN 29 H (9-20) mg/dL Glucose 140 H (74-99) mg/dL POC Glucose (mg/dL) (75-99) mg/dL Calcium 8.0 L (8.4-10.2) mg/dL Creatine Kinase (55-170) U/L Troponin I (0.000-0.034) ng/mL Total Protein (6.3-8.2) g/dL Albumin (3.5-5.0) g/dL Assessment and Plan Plan: 1. Acute bilateral pulmonary embolism, started on IV heparin in the emergency room. Right lower extremity DVT 2. Dizziness and presyncope with fall and head trauma with a hematoma around the left eye 3. 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 4. Mild elevation in troponin level likely related to pulmonary embolism 5. Underlying history of coronary artery disease with remote history of angioplasty and stent placement 6. Recent placement of PEG tube for feeding 7. Underlying history of hypertension 8. Underlying history of hyperlipidemia 9. Underlying history of obstructive sleep apnea maintained on CPAP at home. 10. Thrombocytopenia worse today, platelet down to 81, hematology consult requested, if platelet count continues to decrease patient may need to have a Crowley filter and be off IV heparin. At this time patient is admitted to intensive care unit he was started on IV heparin cardiology and pulmonary consultation were requested Home medication reviewed, and reorder Oncology consultation added Will follow closely
--- NOTE | 2019-08-30 09:09 | CDI ---
Documentation Clarification Form Date: 08/30/2019 08:58:55 AM From: Trista Barbosa RN, CCDS Admit Date: 08/29/2019 10:56:00 AM Patient Name: Michael Cintron Visit Number: [id number] ATTENTION: The Clinical Documentation Specialists (CDI) and [facility] Coding Staff appreciate your assistance in clarifying documentation. Please respond to the clarification below the line at the bottom and electronically sign. The CDI & [facility] Coding staff will review the response and follow-up if needed. Please note: Queries are made part of the Legal Health Record. If you have any questions, please contact the author of this message via ITS. Dr. Blaine Naranjo Bilateral PE with RV strain is documented and further specificity is required. History/Risk Factors: Tonsillar CA with radiation, CAD, HTN, MELL Clinical Indicators: 08/28 CTA Chest: There is bilateral pulmonary embolism involving the bilateral pulmonary arteries without sagittal component. Thrombus extends into secondary and tertiary upper lobe and lower lobe tributaries. There is flattening of the ventricular septum and right ventricular strain is difficult to exclude." 08/28 ED Note: "There is some indirect evidence of heart strain." 08/28 Pulmonary Consult: "There was some flattening of the ventricular septum and right ventricular strain was also suggested." Labs: Troponin .047/1.76, BNP 312 Echo results: ordered, not yet completed Consults: Cardiology, Pulmonology, Oncology Treatment: IV heparin Protocol Lopressor 12.5 mg PO HS In your professional opinion, can you please specify the type of Cor Pulmonale if known? Acute Cor pulmonale secondary to bilateral PE Chronic Cor pulmonale Unable to determine Other, please specify If known, please specify if Cor Pulmonale is due to: Saddle Pulmonary Embolism Septic Pulmonary Embolism Pulmonary Hypertension Other, please specify Unable to determine (Last Revision: December 2016) NO Core pulmonale MTDD
--- NOTE | 2019-08-30 11:00 | ECHOF ---
Referral Reason:PE MEASUREMENTS -------- HEIGHT: 180.3 cm WEIGHT: 119.3 kg BP: RVIDd: 6.2 cm (< 3.3) IVSd: 1.3 cm (0.6 - 1.1) LVIDd: 2.4 cm (3.9 - 5.3) LVPWd: 1.7 cm (0.6 - 1.1) IVSs: 1.5 cm LVIDs: 1.2 cm LVPWs: 1.3 cm AV Cusp: 2.3 cm (1.5 - 2.6) LA Diam: 4.1 cm (2.7 - 3.8) MV E Saurav: 0.35 m/s MV DecT: 159 ms MV A Saurav: 0.24 m/s MV E/A Ratio: 1.49 RAP: 5.00 mmHg RVSP: 40.20 mmHg FINDINGS -------- Sinus rhythm. This was a technically difficult study with suboptimal views. Grossly normal LV size and systolic function. Unable to comment on regional wall motion. The right ventricle is severely enlarged. The left atrium was not well visualized. The right atrium was not well visualized. Lumason used The aortic valve was not well visualized. The mitral valve was not well visualized. The tricuspid valve appears structurally normal. Mild tricuspid regurgitation present. There is m ild pulmonary hypertension. The right ventricular systolic pressure, as measured by Doppler, is 40. 20mmHg. There is no pulmonic regurgitation present. There is no pericardial effusion. CONCLUSIONS -------- 1. Sinus rhythm. 2. This was a technically difficult study with suboptimal views. 3. Grossly normal LV size and systolic function. Unable to comment on regional wall motion. 4. The right ventricle is severely enlarged. 5. The left atrium was not well visualized. 6. The right atrium was not well visualized. 7. Lumason used 8. The aortic valve was not well visualized. 9. The mitral valve was not well visualized. 10. The tricuspid valve appears structurally normal. 11. Mild tricuspid regurgitation present. 12. There is mild pulmonary hypertension. 13. The right ventricular systolic pressure, as measured by Doppler, is 40.20mmHg. 14. There is no pulmonic regurgitation present. 15. There is no pericardial effusion. LACQUER COATER: Angela Heath RD
--- NOTE | 2019-08-30 11:08 | P.CONS ---
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 Gauthier after he presented with palpable right neck mass of about 6 weeks duration. He had a CT scan of neck on 06/06/2019 which revealed internal jugular adenoapthies on the right,one node measured 2cm and one measured 1.2cm. 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 PET scan on 06/30/2019 revealed supsiicous uptake in 2 right cervical nodes,suspicious upatke in right hypopharynx. He was evaluated by Dr Oneill and biopsy of right tonsil was taken,which was positive On 07/26/2019,he started weekly cisplatin with radiation. He has been tolerating treatment well so far,Status Post week 5 of treatment on 08/23/19. They continue to struggle with his dementia and feel it has been worse since treatment. He has complained of dysphagea,he had continued to lose weight since last visit,he has nausea,controlled with current anti emetics,no neuropathy,no tinnitus. Biopsy of the right tonsil was done by ENT and was also consistent with malignancy. He has a PEG tube in place for enteral feeding and nutritional support. He presented to [facility] with weakness, dizzyness, near syncopal. He was hypotensive, tachycardic, hypoxic on admission. CT Chest performed and revealed bilateral pulmonary emboli (new finding). His platelet count is 88K. Heparin drip has been started. He will be admitted to Review of Systems Poor historian ROS unobtainable: due to mental status Past Medical History Past Medical History: Coronary Artery Disease (CAD), Cancer, Chest Pain / Angina , Eye Disorder, Hearing Disorder / Deafness, Hyperlipidemia, Hypertension, Osteoarthritis (OA), Sleep Apnea/CPAP/BIPAP Additional Past Medical History / Comment(s): Tonsillar cancer, coronary artery disease, hypertension, hyperlipidemia, osteoarthritis, obstructive sleep apnea, skin cancer, cataracts. 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 CATARACT RIGHT EYE-WITH LENS IMPLANT Past Anesthesia/Blood Transfusion Reactions: No Reported Reaction Date of Last Stent Placement:: 2006 Smoking Status: Former smoker - Past Family History Mother Family Medical History: No Reported History Medications and Allergies Home Medications Medication Instructions Recorded Confirmed Type Donepezil [Aricept] 10 mg PO HS 01/16/14 08/29/19 History Multivitamins, Thera [Multivitamin] 1 tab PO HS 01/16/14 08/29/19 History Aspirin [Adult Low Dose Aspirin EC] 81 mg PO HS 11/12/17 08/29/19 History Atorvastatin [Lipitor] 20 mg PO HS 11/12/17 08/29/19 History Metoprolol Tartrate [Lopressor] 12.5 mg PO HS 11/12/17 08/29/19 History Sertraline [Zoloft] 50 mg PO HS 11/12/17 08/29/19 History Pramipexole Di-HCl [Mirapex] 1 mg PO HS 11/29/18 08/29/19 History Aprepitant [Emend] 80 mg PO DIRECTED 08/29/19 08/29/19 History Dexamethasone 8 mg PO DIRECTED 08/29/19 08/29/19 History Fluconazole [Diflucan] 100 mg PO DAILY PRN 08/29/19 08/29/19 History Hydrocodone/Acetaminophen [[place] 1 tab PO Q8H PRN 08/29/19 08/29/19 History 5-325] Lidocaine Viscous 2% [Xylocaine 10 ml MUCOUS MEM ACHS 08/29/19 08/29/19 History Viscous] Omeprazole [PriLOSEC] 20 mg PO HS 08/29/19 08/29/19 History Ondansetron HCl [Zofran] 8 mg PO Q8H PRN 08/29/19 08/29/19 History SILVER sulfADIAZINE Cream 1 applic TOPICAL BID 08/29/19 08/29/19 History [Silvadene 1% Cream] risperiDONE 0.5 mg PO HS 08/29/19 08/29/19 History Allergies Allergy/AdvReac Type Severity Reaction Status Date / Time No Known Allergies Allergy Verified 08/29/19 11:06 Physical Exam Vitals: Vital Signs Temp Pulse Pulse Resp BP Pulse Ox 08/29/19 14:21 98.0 F 112 H 18 97/71 94 L 08/29/19 12:56 121 H 26 H 90/71 92 L 08/29/19 11:04 120 H 24 100/80 96 08/29/19 09:41 111 H 20 98/58 93 L 08/29/19 09:12 112 H 08/29/19 09:01 112 H 08/29/19 08:50 109 H 08/29/19 08:41 98.2 F 112 H 18 114/84 Intake and Output 08/29/19 08/29/19 08/29/19 06:59 14:59 22:59 Other: Weight 119 kg Gen: Alert, aphasia, forgetful, mild distress with respiratory effort on 5L NC head left black eye Neck: Adenopathy Mouth: Dry mucous membranes Heart: Tachycardia 118 Respi: Increased respiratory effort 28-30RR, 5L NC Abdomen: Soft, Feeding tube appears clean Ext: No edema noted Mood: Dementia at baseline Results CBC & Chem 7: 08/30/19 03:50 08/30/19 03:50 Labs: Abnormal Lab Results - Last 24 Hours (Table) 08/29/19 08/29/19 08/29/19 Range/Units 09:01 09:01 09:01 WBC 3.5 L (3.8-10.6) k/uL Plt Count 88 L (150-450) k/uL Lymphocytes # (Manual) 0.91 L (1.0-4.8) k/uL Sodium 135 L (137-145) mmol/L BUN 22 H (9-20) mg/dL Glucose 140 H (74-99) mg/dL POC Glucose (mg/dL) (75-99) mg/dL Creatine Kinase 38 L (55-170) U/L Troponin I 0.047 H* (0.000-0.034) ng/mL Total Protein 6.2 L (6.3-8.2) g/dL Albumin 3.3 L (3.5-5.0) g/dL 08/29/19 Range/Units 14:39 WBC (3.8-10.6) k/uL Plt Count (150-450) k/uL Lymphocytes # (Manual) (1.0-4.8) k/uL Sodium (137-145) mmol/L BUN (9-20) mg/dL Glucose (74-99) mg/dL POC Glucose (mg/dL) 130 H (75-99) mg/dL Creatine Kinase (55-170) U/L Troponin I (0.000-0.034) ng/mL Total Protein (6.3-8.2) g/dL Albumin (3.5-5.0) g/dL Chest x-ray: report reviewed CT scan - chest: report reviewed CT scan - pelvis: report reviewed Assessment and Plan (1) Acute respiratory failure with hypoxia Current Visit: Yes Status: Acute Code(s): J96.01 - ACUTE RESPIRATORY FAILURE WITH HYPOXIA SNOMED Code(s): 18848956 (2) Syncopal episodes Current Visit: Yes Status: Acute Code(s): R55 - SYNCOPE AND COLLAPSE SNOMED Code(s): 232695353 (3) Pulmonary embolism, bilateral Current Visit: Yes Status: Acute Code(s): I26.99 - OTHER PULMONARY EMBOLISM WITHOUT ACUTE COR PULMONALE SNOMED Code(s): 11983412 (4) Hypotensive syncope Current Visit: Yes Status: Acute Code(s): R55 - SYNCOPE AND COLLAPSE SNOMED Code(s): 90592969 (5) Bronchospasm Current Visit: Yes Status: Acute Code(s): J98.01 - ACUTE BRONCHOSPASM SNOMED Code(s): 3720977 (6) Dehydration Current Visit: Yes Status: Acute Code(s): E86.0 - DEHYDRATION SNOMED Code(s): 44993898 (7) Elevated troponin Current Visit: Yes Status: Acute Code(s): R79.89 - OTHER SPECIFIED ABNORMAL FINDINGS OF BLOOD CHEMISTRY SNOMED Code(s): 267598965 (8) Head and neck cancer Current Visit: Yes Status: Acute Code(s): C76.0 - MALIGNANT NEOPLASM OF HEAD, FACE AND NECK SNOMED Code(s): 871297365 (9) Tachycardia Current Visit: Yes Status: Acute Code(s): R00.0 - TACHYCARDIA, UNSPECIFIED SNOMED Code(s): 5484569 Plan: Assessment and Recommendations: Acute Hypoxic Respiratory Failure: - Secondary to Bilateral Pulmonary Emboli - Does not wear home O2, requiring 5L Bilateral Pulmonary Emboli: New - Heparin Drip - Monitor Platelet count and coags Right LE DVT Presyncopal: - Likely secondary to PE, Hypotension - CT head no acute etiology - Fall at Radiation treatment Hypotension/Tachycardia: - Likely secondary to pulmonary emboli but agree with full pina culture work-up Squamous Cell Carcinoma of Head and Neck: - Status Post Week 5 of Cisplatin and Radiation - Currently on hold until resolution of acute problems
--- NOTE | 2019-08-30 11:51 | P.PN ---
Subjective Progress Note Date: 08/30/19 Principal diagnosis: DVT and PE Looking better today. He is overall less dizzy. sitting in bed and evaulated in ICU. Objective - Vital Signs Vital signs: Vital Signs Temp 98.1 F 08/30/19 08:00 Pulse 80 08/30/19 08:00 Resp 18 08/30/19 08:00 BP 90/69 08/30/19 08:00 Pulse Ox 95 08/30/19 08:00 Intake & Output 08/29/19 08/30/19 08/30/19 18:59 06:59 18:59 Intake Total 288.701 0 Output Total 400 Balance -111.299 0 Weight 119.4 kg 119.4 kg Intake: Intake, IV Titration 288.701 0 Amount Heparin Sod,Pork in 0.45% 288.701 0 NaCl 25,000 unit In 0.45 % NaCl 1 250ml.bag @ 18 UNITS/KG/HR 21.228 mls/hr IV .[id number] [facility] Rx#: [id number] Output: Urine 400 - Exam Gen: Alert, aphasia, forgetful, mild distress with respiratory effort on 5L NC head left black eye Neck: Adenopathy Mouth: Dry mucous membranes Heart: Tachycardia 118 Respi: Increased respiratory effort 28-30RR, 5L NC Abdomen: Soft, Feeding tube appears clean Ext: No edema noted Mood: Dementia at baseline - Labs CBC & Chem 7: 08/30/19 03:50 08/30/19 03:50 Labs: Abnormal Lab Results - Last 24 Hours (Table) 08/29/19 08/29/19 08/29/19 Range/Units 14:39 16:39 19:12 WBC (3.8-10.6) k/uL RBC (4.30-5.90) m/uL Hgb (13.0-17.5) gm/dL Plt Count (150-450) k/uL Lymphocytes # (1.0-4.8) k/uL Lymphocytes # (Manual) (1.0-4.8) k/uL APTT >200.0 H* (22.0-30.0) sec Sodium (137-145) mmol/L Carbon Dioxide (22-30) mmol/L BUN (9-20) mg/dL Glucose (74-99) mg/dL POC Glucose (mg/dL) 130 H (75-99) mg/dL Calcium (8.4-10.2) mg/dL Troponin I 1.760 H* (0.000-0.034) ng/mL 08/29/19 08/29/19 08/30/19 Range/Units 20:41 20:48 03:50 WBC 3.0 L 2.6 L (3.8-10.6) k/uL RBC 4.12 L (4.30-5.90) m/uL Hgb 12.7 L (13.0-17.5) gm/dL Plt Count 93 L 81 L (150-450) k/uL Lymphocytes # 0.5 L (1.0-4.8) k/uL Lymphocytes # (Manual) 0.93 L (1.0-4.8) k/uL APTT >200.0 H* (22.0-30.0) sec Sodium (137-145) mmol/L Carbon Dioxide (22-30) mmol/L BUN (9-20) mg/dL Glucose (74-99) mg/dL POC Glucose (mg/dL) (75-99) mg/dL Calcium (8.4-10.2) mg/dL Troponin I (0.000-0.034) ng/mL 08/30/19 08/30/19 Range/Units 03:50 03:50 WBC (3.8-10.6) k/uL RBC (4.30-5.90) m/uL Hgb (13.0-17.5) gm/dL Plt Count (150-450) k/uL Lymphocytes # (1.0-4.8) k/uL Lymphocytes # (Manual) (1.0-4.8) k/uL APTT 147.2 H* (22.0-30.0) sec Sodium 133 L (137-145) mmol/L Carbon Dioxide 20 L (22-30) mmol/L BUN 29 H (9-20) mg/dL Glucose 140 H (74-99) mg/dL POC Glucose (mg/dL) (75-99) mg/dL Calcium 8.0 L (8.4-10.2) mg/dL Troponin I (0.000-0.034) ng/mL Assessment and Plan (1) Acute respiratory failure with hypoxia Current Visit: Yes Status: Acute Code(s): J96.01 - ACUTE RESPIRATORY FAILURE WITH HYPOXIA SNOMED Code(s): 79753070 (2) Syncopal episodes Current Visit: Yes Status: Acute Code(s): R55 - SYNCOPE AND COLLAPSE SNOMED Code(s): 759103972 (3) Pulmonary embolism, bilateral Current Visit: Yes Status: Acute Code(s): I26.99 - OTHER PULMONARY EMBOLISM WITHOUT ACUTE COR PULMONALE SNOMED Code(s): 56368707 (4) Hypotensive syncope Current Visit: Yes Status: Acute Code(s): R55 - SYNCOPE AND COLLAPSE SNOMED Code(s): 57608792 (5) Bronchospasm Current Visit: Yes Status: Acute Code(s): J98.01 - ACUTE BRONCHOSPASM SNOMED Code(s): 1969016 (6) Dehydration Current Visit: Yes Status: Acute Code(s): E86.0 - DEHYDRATION SNOMED Code(s): 08952156 (7) Elevated troponin Current Visit: Yes Status: Acute Code(s): R79.89 - OTHER SPECIFIED ABNORMAL FINDINGS OF BLOOD CHEMISTRY SNOMED Code(s): 247128389 (8) Head and neck cancer Current Visit: Yes Status: Acute Code(s): C76.0 - MALIGNANT NEOPLASM OF HEAD, FACE AND NECK SNOMED Code(s): 807999788 (9) Tachycardia Current Visit: Yes Status: Acute Code(s): R00.0 - TACHYCARDIA, UNSPECIFIED SNOMED Code(s): 9614874 Plan: Assessment and Recommendations: Acute Hypoxic Respiratory Failure: - Secondary to Bilateral Pulmonary Emboli - Does not wear home O2, requiring 5L Bilateral Pulmonary Emboli: New - Heparin Drip - Monitor Platelet count and coags Right LE DVT - Continue Heparin drip - Plan for Eliquis at discharge Presyncopal: - Likely secondary to PE, Hypotension - CT head no acute etiology - Fall at Radiation treatment Hypotension/Tachycardia: - Likely secondary to pulmonary emboli but agree with full pina culture work-up Squamous Cell Carcinoma of Head and Neck: - Status Post Week 5 of Cisplatin and Radiation - Currently on hold until resolution of acute problems - Will discuss with prior to discharge Plan: - PT/OT - Monitor Platelet counts - Eliquis at discharge, case repairer to assist. - Follow-up with Dr. Gauthier and prior to continuing therapy
--- NOTE | 2019-08-30 13:08 | PN ---
PROGRESS NOTE Michael is a 74-year-old gentleman who is admitted to hospital with syncope and was found to have bilateral pulmonary embolism. This morning he denies shortness of breath. Denies chest pain. He is lying comfortably in bed with a heart rate of 65 beats per minute and O2 saturation of 96% on 3 L. On exam, vital signs are stable. Chest exam reveals good air entry bilaterally. Heart exam reveals first and second heart sounds. No gallop. Exam of extremities did not reveal any edema. Peripheral pulses are felt. ASSESSMENT: Syncope secondary to acute pulmonary embolism. PLAN: The patient will continue the intravenous heparin. I will review the echo results once they are available. MMODL / IJN: [id number] /
--- NOTE | 2019-08-30 14:41 | P.PN ---
Subjective Progress Note Date: 08/30/19 On today's evaluation of 08/30/2019, the patient is calm and comfortable resting comfortably in bed. The bruise and the ecchymosis around the left orbit remains unchanged and the patient is on IV heparin. The PTT was supratherapeutic and he was held and the dose was readjusted. Note that the patient has a component of thrombocytopenia and the plated count is at 81. Most recent PTT is 80.9. Hemoglobin is at 4.7. The patient DVT of the right lower extremity extending to the popliteal vein and its also involving the femoral vein. No significant chest pain or shortness of breath. No syncope. Cardiac rhythm is sinus. Echocardiogram normal LV function with diverticular systolic pressure measuring about for the millimeters of mercury.the white cell count is at 2.6. He was 12.7. He is receiving enteral feeding for nutritional support. He is taking some minimal amount of liquids which she is able to swallow. Objective - Vital Signs Vital signs: Vital Signs Temp 97.7 F 08/30/19 12:00 Pulse 80 08/30/19 08:00 Resp 22 08/30/19 12:00 BP 102/70 08/30/19 12:00 Pulse Ox 97 08/30/19 12:00 Intake & Output 08/29/19 08/30/19 08/30/19 18:59 06:59 18:59 Intake Total 288.701 181.423 Output Total 400 500 Balance -111.299 -318.577 Weight 119.4 kg 119.4 kg Intake: IV 80 Sodium Chloride 0.9% 1, 80 000 ml @ 20 mls/hr IV . Q24H [facility] Rx#:[id number] Intake, IV Titration 288.701 101.423 Amount Heparin Sod,Pork in 0.45% 288.701 101.423 NaCl 25,000 unit In 0.45 % NaCl 1 250ml.bag @ 18 UNITS/KG/HR 21.228 mls/hr IV .[id number] [facility] Rx#: [id number] Output: Urine 400 500 - Exam The patient appeared well nourished and normally developed. Vital signs as documented. Head exam is unremarkable. The patient has a bruise around his left eyelid and orbits. No obvious facial deformity. No scleral icterus or corneal arcus noted. Neck is without jugular venous distension, thyromegaly, or carotid bruits. Carotid upstrokes are brisk bilaterally. Lungs are clear to auscultation and percussion. Cardiac exam reveals the PMI to be normally sized and situated. Rhythm is regular. First and second heart sounds normal. No murmurs, rubs or gallops. Abdominal exam reveals normal bowel sounds, no masses, no organomegaly and no aortic enlargement. The patient is a PEG tube in place for enteral feeding and nutritional support. Extremities are nonedematous and both femoral and pedal pulses are normal.Examination of the skin revealed no evidence of significant rashes, suspicious appearing nevi or other concerning lesions. The patient has an abrasion of the skin over the right upper shoulder area. There is also radiation changes over the right neck/cervical area. Neurologically awake and alert and is not any focal neurological deficits. - Labs CBC & Chem 7: 08/30/19 03:50 08/30/19 03:50 Labs: Abnormal Lab Results - Last 24 Hours (Table) 08/29/19 08/29/19 08/29/19 Range/Units 14:39 16:39 19:12 WBC (3.8-10.6) k/uL RBC (4.30-5.90) m/uL Hgb (13.0-17.5) gm/dL Plt Count (150-450) k/uL Lymphocytes # (1.0-4.8) k/uL Lymphocytes # (Manual) (1.0-4.8) k/uL APTT >200.0 H* (22.0-30.0) sec Sodium (137-145) mmol/L Carbon Dioxide (22-30) mmol/L BUN (9-20) mg/dL Glucose (74-99) mg/dL POC Glucose (mg/dL) 130 H (75-99) mg/dL Calcium (8.4-10.2) mg/dL Troponin I 1.760 H* (0.000-0.034) ng/mL 08/29/19 08/29/19 08/30/19 Range/Units 20:41 20:48 03:50 WBC 3.0 L 2.6 L (3.8-10.6) k/uL RBC 4.12 L (4.30-5.90) m/uL Hgb 12.7 L (13.0-17.5) gm/dL Plt Count 93 L 81 L (150-450) k/uL Lymphocytes # 0.5 L (1.0-4.8) k/uL Lymphocytes # (Manual) 0.93 L (1.0-4.8) k/uL APTT >200.0 H* (22.0-30.0) sec Sodium (137-145) mmol/L Carbon Dioxide (22-30) mmol/L BUN (9-20) mg/dL Glucose (74-99) mg/dL POC Glucose (mg/dL) (75-99) mg/dL Calcium (8.4-10.2) mg/dL Troponin I (0.000-0.034) ng/mL 08/30/19 08/30/19 08/30/19 Range/Units 03:50 03:50 13:09 WBC (3.8-10.6) k/uL RBC (4.30-5.90) m/uL Hgb (13.0-17.5) gm/dL Plt Count (150-450) k/uL Lymphocytes # (1.0-4.8) k/uL Lymphocytes # (Manual) (1.0-4.8) k/uL APTT 147.2 H* 80.9 H (22.0-30.0) sec Sodium 133 L (137-145) mmol/L Carbon Dioxide 20 L (22-30) mmol/L BUN 29 H (9-20) mg/dL Glucose 140 H (74-99) mg/dL POC Glucose (mg/dL) (75-99) mg/dL Calcium 8.0 L (8.4-10.2) mg/dL Troponin I (0.000-0.034) ng/mL Assessment and Plan Plan: 1 acute bilateral pulmonary embolism, currently on IV heparin DVT of the right lower extremity including the popliteal and the femoral vein. 2 lightheadedness/presyncope, likely secondary to pulmonary embolism, with limited trauma to the left orbital area with secondary bruising and some skin abrasion. CAT scan of the brain is negative for any acute changes. CAT scan of the C-spine was negative. 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 Currently undergoing chemoradiation therapy. 4 thrombocytopenia 5 abnormal troponin is likely secondary to pulmonary embolism. EKG showing sinus tachycardia with a right bundle branch block pattern 6 coronary artery disease with remote stenting of the LAD with last cardiac catheterization being in 2018 showing patent coronaries and stent 7 hypertension 8 hyperlipidemia 9 obstructive sleep apnea maintained on CPAP therapy 10 history of skin cancer 11 history of cataracts 12 enteral feeding for nutritional support via PEG tube. 13 sinus tachycardia secondary to above. Could be also a component of dehydration, and the patient as well as pulmonary embolism. The sinus tachyca rdia is improved and the patient cardiac rhythm is sinus. Plan IV fluids Continue IV heparin and make sure the platelet count remains stable. 4 committing this patient to long-term anticoagulation. Check echocardiogram results and the patient is a presented function Check Doppler of the lower extremities and the patient has a very of the right lower extremity Monitor the platelet count Resume home medications we'll keep the patient ICU for 24 hours. He is hemodynamically stable.
[2019-08-30 16:59] LABS: Appearance,Urine Clear (Clear); Bacteria,Urine Rare /hpf; Bilirubin,Urine Negative (Negative); Blood,Urine Negative (Negative); Color,Urine Yellow; Glucose,Urine (UA) Negative (Negative); Ketones,Urine Negative (Negative); Leukocyte Esterase,Urine Negative (Negative); Mucus,Urine Moderate /hpf; Nitrite,Urine Negative (Negative); PH, Urine 5.5 (5.0-8.0); Protein,Urine 1+ (Negative); RBC,Urine <1 /hpf (0-5); Specific Gravity,Urine 1.035 (1.001-1.035); WBC,Urine 2 /hpf (0-5)
[2019-08-30] MEDS: HYDROcodone/APAP 5-325MG 1 EACH TAB PO PRN (17:02)
[2019-08-30 20:24] LABS: Basophils % (A) 0 %; Eosinophils % (A) 1 %; HCT 38.1 % (39.0-53.0); HGB 12.3 gm/dL (13.0-17.5); Lymphocytes # (A) 0.5 k/uL (1.0-4.8); Lymphocytes % (A) 20 %; MCHC 32.3 g/dL (31.0-37.0); MCV 95.7 fL (80.0-100.0); Mean Platelet Volume 8.5; Monocytes # (A) 0.2 k/uL (0-1.0); Monocytes % (A) 8 %; Neutrophils # (A) 1.9 k/uL (1.3-7.7); Neutrophils % (A) 68 %; Platelet Count 105 k/uL (150-450); RBC 3.98 m/uL (4.30-5.90); RDW 14.9 % (11.5-15.5); WBC 2.7 k/uL (3.8-10.6)
[2019-08-30] MEDS: DONEPEZIL 10 MG TAB PO SCH (20:49)
[2019-08-30] MEDS: PRAMIPEXOLE 1 MG TAB PO SCH (20:49)
[2019-08-30] MEDS: MULTIVITAMINS, THERA 1 EACH TAB PO SCH (20:49)
[2019-08-30] MEDS: ATORVASTATIN 20 MG TAB PO SCH (20:49)
[2019-08-30] MEDS: ASPIRIN 81 MG PO SCH (20:49)
[2019-08-30] MEDS: SERTRALINE 50 MG TAB PO SCH (20:49)
[2019-08-30] MEDS: METOPROLOL TARTRATE 12.5 MG TAB PO SCH (20:49)
[2019-08-30] MEDS: risperiDONE 0.5 MG TAB PO SCH (20:50)
[2019-08-31 00:16] LABS: Glucose,Whole Blood 136 mg/dL (75-99)
[2019-08-31] MEDS: LIDOCAINE VISCOUS 2% 15 ML CUP MUCOUS MEM SCH ×5 (00:48→22:03)
[2019-08-31 05:31] LABS: Basophils % (A) 0 %; Eosinophils % (A) 1 %; HGB 11.7 gm/dL (13.0-17.5); Lymphocytes # (A) 0.5 k/uL (1.0-4.8); Lymphocytes % (A) 21 %; MCH 32.2 pg (25.0-35.0); MCHC 33.3 g/dL (31.0-37.0); MCV 96.8 fL (80.0-100.0); Mean Platelet Volume 7.5; Monocytes # (A) 0.2 k/uL (0-1.0); Monocytes % (A) 7 %; Neutrophils # (A) 1.7 k/uL (1.3-7.7); Neutrophils % (A) 69 %; Platelet Count 113 k/uL (150-450); RBC 3.62 m/uL (4.30-5.90); WBC 2.5 k/uL (3.8-10.6)
[2019-08-31 05:40] LABS: ALT 20 U/L (4-49); AST 29 U/L (17-59); African American GFR (CKD) >90 (>60 ml/min/1.73 sqM); Albumin 2.4 g/dL (3.5-5.0); Alkaline Phosphatase 77 U/L (38-126); Anion Gap 4 mmol/L; Blood Urea Nitrogen 27 mg/dL (9-20); Calcium 7.8 mg/dL (8.4-10.2); Carbon Dioxide 26 mmol/L (22-30); Chloride 104 mmol/L (98-107); Glucose 108 mg/dL (74-99); Non-African American GFR(CKD) 84 (>60 ml/min/1.73 sqM); Potassium 4.1 mmol/L (3.5-5.1); Sodium 134 mmol/L (137-145); Total Bilirubin 0.3 mg/dL (0.2-1.3); Total Protein 4.8 g/dL (6.3-8.2)
[2019-08-31] MEDS: PANTOPRAZOLE 40 MG/10 ML VIAL IV SCH (07:54)
[2019-08-31] MEDS: SODIUM CHLORIDE 0.9% 1,000 ML IV SCH (07:55)
[2019-08-31] MEDS ORDERED: PROPARACAINE 0.5% OPHTH DROPS 15 ML BTL BOTH EYES STA (10:43)
[2019-08-31] MEDS ORDERED: ARTIFICIAL TEARS-HYPROMELLOSE DROPS 15 ML BTL BOTH EYES PRN (11:15)
--- NOTE | 2019-08-31 11:52 | P.PN ---
Subjective Progress Note Date: 08/31/19 On 08/31/2019, the patient is being seen for a follow-up. He is comfortable. Overnight he became slightly confused. He took off his clothes and he pulled on his IV line. No significant agitation following that and this morning he is much more calm and comfortable and appropriate. His cardiac rhythm is sinus. There is still a ecchymotic area along his left orbit, yet the extraocular muscles are all intact and the patient has full range of motion of his I and no impairment in his vision. He remains on IV heparin. He hasn't been switched Eliquis as the patient does not seem to have coverage for that medication. We are looking into alternatives. He is taking some minimal amount of clear liquid diet. 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 He has no significant chest pain. No pleurisy. No hemoptysis. No syncope. His white cell count is at 2.5 with a hemoglobin of 11.7 and the platelet count is up to 113. PT level is 54.7. Normal renal function. Objective - Vital Signs Vital signs: Vital Signs Temp 97.9 F 08/31/19 08:00 Pulse 78 08/31/19 08:00 Resp 18 08/31/19 08:00 BP 113/71 08/31/19 08:00 Pulse Ox 99 08/31/19 08:00 Intake & Output 08/30/19 08/31/19 08/31/19 18:59 06:59 18:59 Intake Total 261.423 808.03 80 Output Total 650 0 Balance -388.577 808.03 80 Weight 119.8 kg 119.8 kg Intake: IV 160 240 80 Sodium Chloride 0.9% 1, 160 240 80 000 ml @ 20 mls/hr IV . Q24H [facility] Rx#:[id number] Intake, IV Titration 101.423 78.03 Amount Heparin Sod,Pork in 0.45% 101.423 78.03 NaCl 25,000 unit In 0.45 % NaCl 1 250ml.bag @ 18 UNITS/KG/HR 21.228 mls/hr IV .[id number] [facility] Rx#: [id number] Tube Feeding 400 Other 90 Output: Urine 650 0 Other: # Voids 1 0 - Exam The patient appeared well nourished and normally developed. Vital signs as documented. Head exam is unremarkable. The patient has a bruise around his left eyelid and orbits. No obvious facial deformity. No scleral icterus or corneal arcus noted. Neck is without jugular venous distension, thyromegaly, or carotid bruits. Carotid upstrokes are brisk bilaterally. Lungs are clear to auscultation and percussion. Cardiac exam reveals the PMI to be normally sized and situated. Rhythm is regular. First and second heart sounds normal. No murmurs, rubs or gallops. Abdominal exam reveals normal bowel sounds, no masses, no organomegaly and no aortic enlargement. The patient is a PEG tube in place for enteral feeding and nutritional support. Extremities are nonedematous and both femoral and pedal pulses are normal.Examination of the skin revealed no evidence of significant rashes, suspicious appearing nevi or other concerning lesions. The patient has an abrasion of the skin over the right upper shoulder area. There is also radiation changes over the right neck/cervical area. Neurologically awake and alert and is not any focal neurological deficits. - Labs CBC & Chem 7: 08/31/19 04:39 08/31/19 04:39 Labs: Abnormal Lab Results - Last 24 Hours (Table) 08/29/19 08/30/19 08/30/19 Range/Units 08:40 13:09 20:09 WBC (3.8-10.6) k/uL RBC (4.30-5.90) m/uL Hgb (13.0-17.5) gm/dL Hct (39.0-53.0) % Plt Count (150-450) k/uL Lymphocytes # (1.0-4.8) k/uL APTT 80.9 H 56.8 H (22.0-30.0) sec Sodium (137-145) mmol/L BUN (9-20) mg/dL Glucose (74-99) mg/dL POC Glucose (mg/dL) (75-99) mg/dL Calcium (8.4-10.2) mg/dL Total Protein (6.3-8.2) g/dL Albumin (3.5-5.0) g/dL Urine Protein 1+ H (Negative) Urine Bacteria Rare H (None) /hpf Urine Mucus Moderate H (None) /hpf 08/30/19 08/31/19 08/31/19 Range/Units 20:09 00:14 04:39 WBC 2.7 L 2.5 L (3.8-10.6) k/uL RBC 3.98 L 3.62 L (4.30-5.90) m/uL Hgb 12.3 L 11.7 L (13.0-17.5) gm/dL Hct 38.1 L 35.0 L (39.0-53.0) % Plt Count 105 L 113 L (150-450) k/uL Lymphocytes # 0.5 L 0.5 L (1.0-4.8) k/uL APTT (22.0-30.0) sec Sodium (137-145) mmol/L BUN (9-20) mg/dL Glucose (74-99) mg/dL POC Glucose (mg/dL) 136 H (75-99) mg/dL Calcium (8.4-10.2) mg/dL Total Protein (6.3-8.2) g/dL Albumin (3.5-5.0) g/dL Urine Protein (Negative) Urine Bacteria (None) /hpf Urine Mucus (None) /hpf 08/31/19 08/31/19 Range/Units 04:39 04:39 WBC (3.8-10.6) k/uL RBC (4.30-5.90) m/uL Hgb (13.0-17.5) gm/dL Hct (39.0-53.0) % Plt Count (150-450) k/uL Lymphocytes # (1.0-4.8) k/uL APTT 54.7 H (22.0-30.0) sec Sodium 134 L (137-145) mmol/L BUN 27 H (9-20) mg/dL Glucose 108 H (74-99) mg/dL POC Glucose (mg/dL) (75-99) mg/dL Calcium 7.8 L (8.4-10.2) mg/dL Total Protein 4.8 L (6.3-8.2) g/dL Albumin 2.4 L (3.5-5.0) g/dL Urine Protein (Negative) Urine Bacteria (None) /hpf Urine Mucus (None) /hpf Microbiology - Last 24 Hours (Table) 08/29/19 16:45 Blood Culture - Preliminary Blood No Growth after 24 hours Assessment and Plan Plan: 1 acute bilateral pulmonary embolism, currently on IV heparin DVT of the right lower extremity including the popliteal and the femoral vein. No new symptoms and the patient has no chest pain or shortness of breath. Platelet counts are on the rise and the PTT is therapeutic. Investigating coverage for oral anticoagulants. 2 lightheadedness/presyncope, likely secondary to pulmonary embolism, with limited trauma to the left orbital area with secondary bruising and some skin abrasion. CAT scan of the brain is negative for any acute changes. CAT scan of the C-spine was negative. 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 Currently undergoing chemoradiation therapy. 4 thrombocytopenia, improving 5 abnormal troponin is likely secondary to pulmonary embolism. EKG showing sinus tachycardia with a right bundle branch block pattern 6 coronary artery disease with remote stenting of the LAD with last cardiac catheterization being in 2018 showing patent coronaries and stent 7 hypertension 8 hyperlipidemia 9 obstructive sleep apnea maintained on CPAP therapy 10 history of skin cancer 11 history of cataracts 12 enteral feeding for nutritional support via PEG tube. 13 sinus tachycardia secondary to above. Could be also a component of dehydration, and the patient as well as pulmonary embolism. The sinus tachycardia is improved and the patient cardiac rhythm is sinus. 14 left orbital ecchymosis, will involve ophthalmology 15 leukopenia 16. Delirium, overnight, recovered Plan IV fluids Continue IV heparin and without investigating coverage for other oral anticoagulants. If unable to obtain any coverage, we are going to proceed with warfarin. Platelet counts are stable and above 100. Monitor the platelet count Echo was noted and the patient has a preserved LV function. Nevertheless, RV was dilated and the right ventricular systolic pressure was around 40 mmHg. No pericardial effusion. Monitor mental status Resume home medications we'll keep the patient ICU for 24 hours. He is hemodynamically stable.
--- NOTE | 2019-08-31 13:18 | P.CON ---
Consult Note - . Consult date: 08/31/19 Assessment/Plan:: This is a 74 y/o male known to me after having cataract surgery in both eyes last summer. He presents after having had a syncopal event a couple of days ago. He apparently from the event suffered a left temporal bruising in the brow. Ap parently, he was not down for any extended period of time, and largely recalls events prior to and after the injury. Medically he is being stabilized by his primary physicians. I have been consulted to input information with respect to the injury and how it may have affected the eye. At the time of my interview he is denying any problems with his distance vision, no diplopia, loss of visual field or any symptoms of retinal detachment, e.g. floaters or flashes. PE: Ext: Deep violaceous ecchymosis to the left brow involving the upper cheek. No breakdown/laceration of the skin. Moderate subconjunctival hemorrhage. Palpated area moderately tender to the brow without any indication of a step-off of the orbit. Va: w/o correction (dist) 20/20 OU IOP: 11 mm Hg OU @ 1030 hrs Pupils: no APD CF: full OU EOM: normal full range in all directions with some appreciation of horizontal diplopia on right lateral gaze. Conjunctiva: OD White & quiet; OS moderate lateral inferior subconjunctival hemorrhage - confluent with eyelid Cornea: clear AC: D&Q OU Iris: normal blue, pupil round Lens: PC IOL OU in good position without phacodynesis Optic nerve: S/F/P C:D 0.30 Mac: quiet, no hemorrage Vasc: normal throughout. 0.66 CT head reviewed: no discussion in narrative, but reviewed sinuses and orbits, no evidence of any accumulating blood, and orbits intact in all areas. A: Bruising of the orbit from a fall without injury to the eye or the socket appreciated right lateral gaze diplopia likely related to subconjunctival hemorrhage interfering with rotational movement of the left eye - expected to resolve in a couple of weeks. P: Artificial tears ordered for comfort. Recommend follow up as planned in office for routine eye care or sooner if there are any new findings. Would recommend returning to office if diplopia does not resolve, any new onset flashes or floaters ( can happen 90 days after impact with floor ). Thank you for this consult on your patient.
[2019-08-31] MEDS: HEPARIN SOD,PORK IN 0.45% NACL 25,000 UNIT in 0.45% NACL 1 250ML.BAG IV SCH ×2 (16:54→21:31)
--- NOTE | 2019-08-31 18:21 | P.PN ---
Subjective Progress Note Date: 08/31/19 Michael Cintron is a 74-year-old male who was having any radiation oncology visit for tonsillar cancer, when he felt dizzy and lightheaded, MATTHIAS YAÑEZ was called, however patient was found to to be conscious with evidence of bradycardia, patient was complaining of shortness of breath but no chest pain, he had the bruise around the left eye which patient states is new, patient also has laceration around the shoulders and the right pretibial area, he was brought into emergency room and was evaluated, computed tomography scan angiogram of the lungs revealed evidence of bilateral pulmonary embolism, he was started on IV heparin and was admitted to intensive care unit. Patient has a known history of coronary artery disease with stent placement in 2005, he also has a recent diagnosis of tonsillar cancer diagnosed 2 months ago. Patient was seen and examined in intensive care unit he is alert and oriented 3 in no apparent distress, he denies any symptoms at this time, there is no fever or chills no headache or dizziness no chest pain, currently he has no shortness of breath he is maintained on oxygen via nasal cannula at 2 L/m, there is no cough no nausea or vomiting no abdominal pain no diarrhea no blood in the stools no burning was urination no frequency or urgency and no hematuria. Patient recently had PEG tube placed. On 08/31/2019 patient was seen and examined on the telemetry floor he is alert and oriented in no distress, hematoma around the left eye more pronounced. platelet count improving, patient denies any chest pain or shortness of breath. Objective - Vital Signs Vital signs: Vital Signs Temp 97.6 F 08/31/19 12:00 Pulse 75 08/31/19 12:00 Resp 20 08/31/19 12:00 BP 101/74 08/31/19 12:00 Pulse Ox 95 08/31/19 12:00 Intake & Output 08/30/19 08/31/19 08/31/19 18:59 06:59 18:59 Intake Total 261.423 808.03 160 Output Total 650 250 Balance -388.577 808.03 -90 Weight 119.8 kg 119.8 kg Intake: IV 160 240 160 Sodium Chloride 0.9% 1, 160 240 160 000 ml @ 20 mls/hr IV . Q24H [facility] [place] Rx#:[id number] Intake, IV Titration 101.423 78.03 Amount Heparin Sod,Pork in 0.45% 101.423 78.03 NaCl 25,000 unit In 0.45 % NaCl 1 250ml.bag @ 18 UNITS/KG/HR 21.228 mls/hr IV .[id number] [facility] [place] Rx#: [id number] Tube Feeding 400 Other 90 Output: Urine 650 250 Other: # Voids 1 0 - Exam In general patient is alert and oriented 3 in no apparent distress HEENT head normocephalic there is a bruise with hematoma around the left eye, which is worse than yesterday Neck is supple no JVD no goiter no lymphadenopathy Chest exam reveals a scattered crackles bilaterally no wheezing Cardiac exam reveals regular heart sounds no gallops no murmurs Abdomen is soft nontender no organomegaly with normal bowel sounds Extremity exam reveals the right lower extremity larger than the left with edema his laceration in the right pretibial area Neurological examination reveals no gross focal deficit - Labs CBC & Chem 7: 08/31/19 04:39 08/31/19 04:39 Labs: Abnormal Lab Results - Last 24 Hours (Table) 08/29/19 08/30/19 08/30/19 Range/Units 08:40 20:09 20:09 WBC 2.7 L (3.8-10.6) k/uL RBC 3.98 L (4.30-5.90) m/uL Hgb 12.3 L (13.0-17.5) gm/dL Hct 38.1 L (39.0-53.0) % Plt Count 105 L (150-450) k/uL Lymphocytes # 0.5 L (1.0-4.8) k/uL APTT 56.8 H (22.0-30.0) sec Sodium (137-145) mmol/L BUN (9-20) mg/dL Glucose (74-99) mg/dL POC Glucose (mg/dL) (75-99) mg/dL Calcium (8.4-10.2) mg/dL Total Protein (6.3-8.2) g/dL Albumin (3.5-5.0) g/dL Urine Protein 1+ H (Negative) Urine Bacteria Rare H (None) /hpf Urine Mucus Moderate H (None) /hpf 06/25/20 06/25/20 06/25/20 Range/Units 00:14 04:39 04:39 WBC 2.5 L (3.8-10.6) k/uL RBC 3.62 L (4.30-5.90) m/uL Hgb 11.7 L (13.0-17.5) gm/dL Hct 35.0 L (39.0-53.0) % Plt Count 113 L (150-450) k/uL Lymphocytes # 0.5 L (1.0-4.8) k/uL APTT 54.7 H (22.0-30.0) sec Sodium (137-145) mmol/L BUN (9-20) mg/dL Glucose (74-99) mg/dL POC Glucose (mg/dL) 136 H (75-99) mg/dL Calcium (8.4-10.2) mg/dL Total Protein (6.3-8.2) g/dL Albumin (3.5-5.0) g/dL Urine Protein (Negative) Urine Bacteria (None) /hpf Urine Mucus (None) /hpf 08/31/19 Range/Units 04:39 WBC (3.8-10.6) k/uL RBC (4.30-5.90) m/uL Hgb (13.0-17.5) gm/dL Hct (39.0-53.0) % Plt Count (150-450) k/uL Lymphocytes # (1.0-4.8) k/uL APTT (22.0-30.0) sec Sodium 134 L (137-145) mmol/L BUN 27 H (9-20) mg/dL Glucose 108 H (74-99) mg/dL POC Glucose (mg/dL) (75-99) mg/dL Calcium 7.8 L (8.4-10.2) mg/dL Total Protein 4.8 L (6.3-8.2) g/dL Albumin 2.4 L (3.5-5.0) g/dL Urine Protein (Negative) Urine Bacteria (None) /hpf Urine Mucus (None) /hpf Microbiology - Last 24 Hours (Table) 08/29/19 16:45 Blood Culture - Preliminary Blood No Growth after 24 hours Assessment and Plan Plan: 1. Acute bilateral pulmonary embolism, started on IV heparin in the emergency room. Right lower extremity DVT 2. Dizziness and presyncope with fall and head trauma with a hematoma around th e left eye 3. 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 4. Mild elevation in troponin level likely related to pulmonary embolism 5. Underlying history of coronary artery disease with remote history of angioplasty and stent placement 6. Recent placement of PEG tube for feeding 7. Underlying history of hypertension 8. Underlying history of hyperlipidemia 9. Underlying history of obstructive sleep apnea maintained on CPAP at home. 10. Thrombocytopenia worse today, platelet down to 81, hematology consult requested, if platelet count continues to decrease patient may need to have a Marilynn filter and be off IV heparin. At this time patient is admitted to intensive care unit he was started on IV heparin cardiology and pulmonary consultation were requested Home medication reviewed, and reorder Oncology consultation added Will follow closely
--- NOTE | 2019-08-31 19:47 | P.PN ---
Subjective Progress Note Date: 08/31/19 Principal diagnosis: DVT and PE patient was confused overnight, although intermittent confusion is not new for him and being in the hospital overnight likely a benign confusion consistent with his baseine. He is awake this morning and alert. He continues on heparin drip, planning for DOAC at discharge. No pain, no shortness of breath. HR - Sinus. Objective - Vital Signs Vital signs: Vital Signs Temp 97.9 F 08/31/19 08:00 Pulse 78 08/31/19 08:00 Resp 18 08/31/19 08:00 BP 113/71 08/31/19 08:00 Pulse Ox 99 08/31/19 08:00 Intake & Output 08/30/19 08/31/19 08/31/19 18:59 06:59 18:59 Intake Total 261.423 808.03 80 Output Total 650 0 Balance -388.577 808.03 80 Weight 119.8 kg 119.8 kg Intake: IV 160 240 80 Sodium Chloride 0.9% 1, 160 240 80 000 ml @ 20 mls/hr IV . Q24H [facility] Rx#:[id number] Intake, IV Titration 101.423 78.03 Amount Heparin Sod,Pork in 0.45% 101.423 78.03 NaCl 25,000 unit In 0.45 % NaCl 1 250ml.bag @ 18 UNITS/KG/HR 21.228 mls/hr IV .[id number] [facility] Rx#: [id number] Tube Feeding 400 Other 90 Output: Urine 650 0 Other: # Voids 1 0 - Exam Gen: Alert, aphasia, forgetful, mild distress with respiratory effort on 5L NC head left black eye Neck: Adenopathy Mouth: Dry mucous membranes Heart: Tachycardia 118 Respi: Increased respiratory effort 28-30RR, 5L NC Abdomen: Soft, Feeding tube appears clean Ext: No edema noted Mood: Dementia at baseline - Labs CBC & Chem 7: 08/31/19 04:39 08/31/19 04:39 Labs: Abnormal Lab Results - Last 24 Hours (Table) 08/29/19 08/30/19 08/30/19 Range/Units 08:40 13:09 20:09 WBC (3.8-10.6) k/uL RBC (4.30-5.90) m/uL Hgb (13.0-17.5) gm/dL Hct (39.0-53.0) % Plt Count (150-450) k/uL Lymphocytes # (1.0-4.8) k/uL APTT 80.9 H 56.8 H (22.0-30.0) sec Sodium (137-145) mmol/L BUN (9-20) mg/dL Glucose (74-99) mg/dL POC Glucose (mg/dL) (75-99) mg/dL Calcium (8.4-10.2) mg/dL Total Protein (6.3-8.2) g/dL Albumin (3.5-5.0) g/dL Urine Protein 1+ H (Negative) Urine Bacteria Rare H (None) /hpf Urine Mucus Moderate H (None) /hpf 08/30/19 08/31/19 08/31/19 Range/Units 20:09 00:14 04:39 WBC 2.7 L 2.5 L (3.8-10.6) k/uL RBC 3.98 L 3.62 L (4.30-5.90) m/uL Hgb 12.3 L 11.7 L (13.0-17.5) gm/dL Hct 38.1 L 35.0 L (39.0-53.0) % Plt Count 105 L 113 L (150-450) k/uL Lymphocytes # 0.5 L 0.5 L (1.0-4.8) k/uL APTT (22.0-30.0) sec Sodium (137-145) mmol/L BUN (9-20) mg/dL Glucose (74-99) mg/dL POC Glucose (mg/dL) 136 H (75-99) mg/dL Calcium (8.4-10.2) mg/dL Total Protein (6.3-8.2) g/dL Albumin (3.5-5.0) g/dL Urine Protein (Negative) Urine Bacteria (None) /hpf Urine Mucus (None) /hpf 08/31/19 08/31/19 Range/Units 04:39 04:39 WBC (3.8-10.6) k/uL RBC (4.30-5.90) m/uL Hgb (13.0-17.5) gm/dL Hct (39.0-53.0) % Plt Count (150-450) k/uL Lymphocytes # (1.0-4.8) k/uL APTT 54.7 H (22.0-30.0) sec Sodium 134 L (137-145) mmol/L BUN 27 H (9-20) mg/dL Glucose 108 H (74-99) mg/dL POC Glucose (mg/dL) (75-99) mg/dL Calcium 7.8 L (8.4-10.2) mg/dL Total Protein 4.8 L (6.3-8.2) g/dL Albumin 2.4 L (3.5-5.0) g/dL Urine Protein (Negative) Urine Bacteria (None) /hpf Urine Mucus (None) /hpf Microbiology - Last 24 Hours (Table) 08/29/19 16:45 Blood Culture - Preliminary Blood No Growth after 24 hours Assessment and Plan (1) Acute respiratory failure with hypoxia Current Visit: Yes Status: Acute Code(s): J96.01 - ACUTE RESPIRATORY FAILURE WITH HYPOXIA SNOMED Code(s): 27823734 (2) Syncopal episodes Current Visit: Yes Status: Acute Code(s): R55 - SYNCOPE AND COLLAPSE SNOMED Code(s): 174528463 (3) Pulmonary embolism, bilateral Current Visit: Yes Status: Acute Code(s): I26.99 - OTHER PULMONARY EMBOLISM WITHOUT ACUTE COR PULMONALE SNOMED Code(s): 72336380 (4) Hypotensive syncope Current Visit: Yes Status: Acute Code(s): R55 - SYNCOPE AND COLLAPSE SNOMED Code(s): 13908618 (5) Bronchospasm Current Visit: Yes Status: Acute Code(s): J98.01 - ACUTE BRONCHOSPASM SNOMED Code(s): 3079561 (6) Dehydration Current Visit: Yes Status: Acute Code(s): E86.0 - DEHYDRATION SNOMED Code(s): 78456806 (7) Elevated troponin Current Visit: Yes Status: Acute Code(s): R79.89 - OTHER SPECIFIED ABNORMAL FINDINGS OF BLOOD CHEMISTRY SNOMED Code(s): 879493862 (8) Head and neck cancer Current Visit: Yes Status: Acute Code(s): C76.0 - MALIGNANT NEOPLASM OF HEAD, FACE AND NECK SNOMED Code(s): 533789146 (9) Tachycardia Current Visit: Yes Status: Acute Code(s): R00.0 - TACHYCARDIA, UNSPECIFIED SNOMED Code(s): 0310215 Plan: Assessment and Recommendations: Acute Hypoxic Respiratory Failure: - Secondary to Bilateral Pulmonary Emboli - Does not wear home O2, requiring 5L Bilateral Pulmonary Emboli: New - Heparin Drip - Monitor Platelet count and coags Right LE DVT Presyncopal: - Likely secondary to PE, Hypotension - CT head no acute etiology - Fall at Radiation treatment Hypotension/Tachycardia: - Likely secondary to pulmonary emboli but agree with full pina culture work-up 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 marketing programs manager referral to check coverage and copay and prescription sent to pharmacy for the same. - Continue at Home with [facility]: Pt/OT versus Rehab at discharge to ensure safety and stamina, especially while on anticoagulation - Resume radiation and chemotherapy after follow-up in office at discharge. - Continue on 5 cans TF - Formula Via feeding tube per NN for weight loss >26 pounds.
--- NOTE | 2019-08-31 21:04 | PN ---
PROGRESS NOTE FOLLOW-UP NOTE: This patient is a 74-year-old gentleman who is admitted to hospital with syncope secondary to pulmonary embolism. This morning he is doing well. Denies difficulty in breathing. Heart rate is normal, stable hemodynamically. He is on IV heparin. An echocardiogram showed normal LV systolic function, severely enlarged right ventricle and mild pulmonary hypertension. On exam, comfortable at rest. Vital signs are stable. There is no jugular venous distention. Chest exam reveals good air entry bilaterally. Heart exam reveals first and second heart sounds. No gallop. No murmur. Abdomen is soft. Examination of extremities did not reveal any edema. Peripheral pulses are felt. Labs show that the hemoglobin is 11.7, potassium is 4.1. Creatinine is 0.9. ASSESSMENT: Syncope secondary to acute pulmonary embolism. PLAN: Patient is doing better. I reviewed echo findings. I will switch the patient to Xarelto if his insurance covers it. MMCHIKISL / IJN: [id number] /
[2019-08-31] MEDS: METOPROLOL TARTRATE 12.5 MG TAB PO SCH (21:23)
[2019-08-31] MEDS: ATORVASTATIN 20 MG TAB PO SCH (21:24)
[2019-08-31] MEDS: SERTRALINE 50 MG TAB PO SCH (21:24)
[2019-08-31] MEDS: DONEPEZIL 10 MG TAB PO SCH (21:24)
[2019-08-31] MEDS: ASPIRIN 81 MG PO SCH (21:24)
[2019-08-31] MEDS: PRAMIPEXOLE 1 MG TAB PO SCH (21:52)
[2019-08-31] MEDS: MULTIVITAMINS, THERA 1 EACH TAB PO SCH (22:01)
[2019-08-31] MEDS: risperiDONE 0.5 MG TAB PO SCH (22:57)
[2019-09-01 07:27] LABS: Basophils % (A) 0 %; Eosinophils % (A) 2 %; HCT 36.3 % (39.0-53.0); HGB 11.7 gm/dL (13.0-17.5); Lymphocytes # (A) 0.5 k/uL (1.0-4.8); Lymphocytes % (A) 19 %; MCH 30.4 pg (25.0-35.0); MCHC 32.1 g/dL (31.0-37.0); MCV 94.8 fL (80.0-100.0); Mean Platelet Volume 7.5; Monocytes # (A) 0.2 k/uL (0-1.0); Monocytes % (A) 7 %; Neutrophils # (A) 1.7 k/uL (1.3-7.7); Neutrophils % (A) 70 %; Platelet Count 146 k/uL (150-450); RBC 3.83 m/uL (4.30-5.90); RDW 15.1 % (11.5-15.5); WBC 2.5 k/uL (3.8-10.6)
[2019-09-01] MEDS: LIDOCAINE VISCOUS 2% 15 ML CUP MUCOUS MEM SCH ×4 (09:24→23:33)
[2019-09-01] MEDS: RIVAROXABAN 15 MG TAB PO SCH ×2 (09:24→17:10)
[2019-09-01] MEDS: PANTOPRAZOLE 40 MG/10 ML VIAL IV SCH (09:24)
[2019-09-01] MEDS: SODIUM CHLORIDE 0.9% 1,000 ML IV SCH (09:25)
--- NOTE | 2019-09-01 13:56 | P.PN ---
Subjective Progress Note Date: 09/01/19 This is a 74-year-old gentleman who has a history of head and neck cancer, had a syncopal episode while he was over in the oncology area preparing for radiation. A CODE BLUE was called. Patient was then brought to the emergency room and subsequently admitted with diagnosis of acute bilateral pu lmonary embolism. The patient was seen and examined this morning, blood pressure 122/60 with a heart rate of 80, 98% on 3 L of oxygen. White blood cell count 2.5, hemoglobin 11.7, platelet count 146. IV heparin has been discontinued and patient has been initiated on Xarelto per PE protocol. Objective - Vital Signs Vital signs: Vital Signs Temp 97.8 F 09/01/19 11:41 Pulse 81 09/01/19 11:45 Resp 18 09/01/19 11:45 BP 122/66 09/01/19 11:41 Pulse Ox 98 09/01/19 11:41 Intake & Output 08/31/19 09/01/19 09/01/19 18:59 06:59 18:59 Intake Total 160 1350 500 Output Total 450 350 Balance -290 1000 500 Weight 121 kg Intake: IV 160 Sodium Chloride 0.9% 1, 160 000 ml @ 20 mls/hr IV . Q24H [facility] Rx#:[id number] Intake, IV Titration 250 Amount Heparin Sod,Pork in 0.45% 250 NaCl 25,000 unit In 0.45 % NaCl 1 250ml.bag @ 18 UNITS/KG/HR 21.228 mls/hr IV .[id number] [facility] Rx#: [id number] Tube Feeding 1100 500 Output: Urine 450 350 Other: Voiding Method Urinal Urinal # Voids 0 1 - Exam PHYSICAL EXAMINATION: GENERAL: 74-year-old patient acute distress at the time of my examination HEENT: Head is atraumatic, normocephalic. Pupils equal, round. Sclera anicteric. Conjunctiva are clear. Mucous membranes of the mouth are moist. Ne ck is supple. There is no elevated jugular venous pressure.] bruit is heard. HEART EXAMINATION: [Heart S1, S2 normal. No murmur or gallop heard.] CHEST EXAMINATION:[ Lungs are clear to auscultation and precussion. No chest wall tenderness is noted on palpation or with deep breathing.] ABDOMEN: [ Soft, nontender. Bowel sounds are heard. No organomegaly noted]. EXTREMITIES:[ 2+ peripheral pulses with no evidence of peripheral edema and no calf tenderness noted]. NEUROLOGIC [patient is awake, alert and oriented X1] . - Labs CBC & Chem 7: 09/01/19 06:47 08/31/19 04:39 Labs: Abnormal Lab Results - Last 24 Hours (Table) 09/01/19 Range/Units 06:47 WBC 2.5 L (3.8-10.6) k/uL RBC 3.83 L (4.30-5.90) m/uL Hgb 11.7 L (13.0-17.5) gm/dL Hct 36.3 L (39.0-53.0) % Plt Count 146 L (150-450) k/uL Lymphocytes # 0.5 L (1.0-4.8) k/uL Microbiology - Last 24 Hours (Table) 08/29/19 16:45 Blood Culture - Preliminary Blood No Growth after 48 hours Assessment and Plan Plan: Assessment and Plan: 1 acute bilateral pulmonary embolism, initiated on Xarelto per PE protocol 2 lightheadedness/presyncope, likely secondary to pulmonary embolism 3 tonsillar cancer, as the patient presented with a right neck mass and he was found to have cervical lymphadenopathy fine-needle of which was consistent with squamous cell carcinoma and furthermore PET scan revealed intense uptake within the cervical lymph nodes and the hypopharyngeal area and the patient was furthermore found to have a tonsillar mass and biopsy was consistent. Currently undergoing chemoradiation therapy. 4 thrombocytopenia 5 abnormal troponin is likely secondary to pulmonary embolism. EKG showing sinus tachycardia with a right bundle branch block pattern 6 coronary artery disease with remote stenting of the LAD with last cardiac catheterization being in 2018 showing patent coronaries and stent 7 hypertension 8 hyperlipidemia 9 obstructive sleep apnea maintained on CPAP therapy 10 history of skin cancer 11 history of cataracts 12 enteral feeding for nutritional support via PEG tube. 13 sinus tachycardia secondary to above. Could be also a component of dehydration, and the patient as well as pulmonary embolism. The sinus tachycardia is improved and the patient cardiac rhythm is sinus. 14 left orbital ecchymosis, will involve ophthalmology 15 leukopenia 16. Delirium, recovered Plan From cardiology's perspective, we will continue the Xarelto per PE protocol. Continue the rest of the patient's medications. DNP note has been reviewed, I agree with a documented findings and plan of care. Patient was seen and examined.
--- NOTE | 2019-09-01 14:13 | P.PN ---
Subjective Progress Note Date: 09/01/19 Principal diagnosis: Acute bilateral pulmonary embolisms, and right lower extremity DVT On 08/31/2019, the patient is being seen for a follow-up. He is comfortable. Overnight he became slightly confused. He took off his clothes and he pulled on his IV line. No significant agitation following that and this morning he is much more calm and comfortable and appropriate. His cardiac rhythm is sinus. There is still a ecchymotic area along his left orbit, yet the extraocular m uscles are all intact and the patient has full range of motion of his I and no impairment in his vision. He remains on IV heparin. He hasn't been switched Eliquis as the patient does not seem to have coverage for that medication. We are looking into alternatives. He is taking some minimal amount of clear liquid diet. 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 He has no significant chest pain. No pleurisy. No hemoptysis. No syncope. His white cell count is at 2.5 with a hemoglobin of 11.7 and the platelet count is up to 113. PT level is 54.7. Normal renal function. On 09/01/2019 patient seen in follow-up on selective care unit. Patient has been started on Zaroxolyn for anticoagulation for recent history of bilateral pulmonary emboli, and right lower extremity DVT, he is on 3 L of oxygen with a pulse ox of 90%, hemodynamically stable, no fever chills, respirations are nonlabored, he remains nothing by mouth except for sips of water, 2 feedings infusing through the PEG tube, with TwoCal at a rate of 50 ML per hour, there is some mucus in the back of patient's throat, but otherwise no acute distress, his left eye area orbital bruising remains, but seems to be less swollen, and patie nt was evaluated by Dr. Vazquez, and his consultation was noted. Lung sounds are clear, diminished at the bases. Today's labs have been reviewed, showing white blood cell count of 2.5, hemoglobin of 11.7. Blood culture has shown no growth. Patient has had no fever or chills. Objective - Vital Signs Vital signs: Vital Signs Temp 97.8 F 09/01/19 11:41 Pulse 81 06/26/20 11:45 Resp 18 09/01/19 11:45 BP 122/66 09/01/19 11:41 Pulse Ox 98 09/01/19 11:41 Intake & Output 08/31/19 09/01/19 09/01/19 18:59 06:59 18:59 Intake Total 160 1350 500 Output Total 450 350 Balance -290 1000 500 Weight 121 kg 121 kg Intake: IV 160 Sodium Chloride 0.9% 1, 160 000 ml @ 20 mls/hr IV . Q24H [facility] Rx#:[id number] Intake, IV Titration 250 Amount Heparin Sod,Pork in 0.45% 250 NaCl 25,000 unit In 0.45 % NaCl 1 250ml.bag @ 18 UNITS/KG/HR 21.228 mls/hr IV .[id number] [facility] Rx#: [id number] Tube Feeding 1100 500 Output: Urine 450 350 Other: Voiding Method Urinal Urinal # Voids 0 1 - Exam GENERAL EXAM: Alert, very pleasant, 74-year-old white male, 3 L of oxygen with a pulse ox of 98%, comfortable in no apparent distress. Patient has significant bruising in his left periorbital area however seems to be less swollen on today's exam, extraocular movements are intact HEAD: Normocephalic/atraumatic. EYES: Normal reaction of pupils, equal size. Conjunctiva pink, sclera white. NOSE: Clear with pink turbinates. THROAT: No erythema or exudates. NECK: No masses, no JVD, no thyroid enlargement, no adenopathy. CHEST: No chest wall deformity. Symmetrical expansion. LUNGS: Equal air entry with no crackles, wheeze, rhonchi or dullness. CVS: Regular rate and rhythm, normal S1 and S2, no gallops, no murmurs, no rubs ABDOMEN: Soft, nontender. No hepatosplenomegaly, normal bowel sounds, no guarding or rigidity. PEG tube in place with the tube feedings in the form of TwoCal infusing at a rate of 50 ML per hour EXTREMITIES: No clubbing, no edema, no cyanosis, 2+ pulses and upper and lower extremities. MUSCULOSKELETAL: Muscle strength and tone normal. SPINE: No scoliosis or deformity SKIN: No rashes, abrasion over his right upper shoulder area, radiation changes over the right neck/cervical area CENTRAL NERVOUS SYSTEM: Alert and oriented -3. No focal deficits, tone is normal in all 4 extremities. PSYCHIATRIC: Alert and oriented -3. Appropriate affect. Intact judgment and insight. - Labs CBC & Chem 7: 09/01/19 06:47 08/31/19 04:39 Labs: Abnormal Lab Results - Last 24 Hours (Table) 09/01/19 Range/Units 06:47 WBC 2.5 L (3.8-10.6) k/uL RBC 3.83 L (4.30-5.90) m/uL Hgb 11.7 L (13.0-17.5) gm/dL Hct 36.3 L (39.0-53.0) % Plt Count 146 L (150-450) k/uL Lymphocytes # 0.5 L (1.0-4.8) k/uL Microbiology - Last 24 Hours (Table) 08/29/19 16:45 Blood Culture - Preliminary Blood No Growth after 48 hours Assessment and Plan Plan: Assessment: 1 acute bilateral pulmonary embolism, currently on IV heparin DVT of the right lower extremity including the popliteal and the femoral vein. No new symptoms and the patient has no chest pain or shortness of breath. Platelet counts are on the rise and the PTT is therapeutic. Investigating coverage for oral anti coagulants. 2 lightheadedness/presyncope, likely secondary to pulmonary embolism, with limited trauma to the left orbital area with secondary bruising and some skin abrasion. CAT scan of the brain is negative for any acute changes. CAT scan of the C-spine was negative. 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 Currently undergoing chemoradiation therapy. 4 thrombocytopenia, improving 5 abnormal troponin is likely secondary to pulmonary embolism. EKG showing sinus tachycardia with a right bundle branch block pattern 6 coronary artery disease with remote stenting of the LAD with last cardiac catheterization being in 2018 showing patent coronaries and stent 7 hypertension 8 hyperlipidemia 9 obstructive sleep apnea maintained on CPAP therapy 10 history of skin cancer 11 history of cataracts 12 enteral feeding for nutritional support via PEG tube. 13 sinus tachycardia secondary to above. Could be also a component of dehydration, and the patient as well as pulmonary embolism. The sinus tachycardia is improved and the patient cardiac rhythm is sinus. 14 left orbital ecchymosis, will involve ophthalmology 15 leukopenia 16. Delirium, overnight, recovered Plan: Patient has been approved for Xarelto, and he has been started on a, heparin drip has been discontinued, vital signs are stable, increase activity as tolerated, may provide oral suction at the bedside so patient can suction the back of his throat. Patient continues to be nothing by mouth, he is tolerating tube feedings, no nausea or vomiting. Vital signs are stable overnight. No specific complaints. We'll obtain room air pulse ox, encourage deep breathing and coughing, physical therapy consultation I performed a history & physical examination of the patient and discussed their management with my nurse practitioner, Kimberly Coto. I reviewed the nurse practitioner's note and agree with the documented findings and plan of care. Lung sounds are positive for diminished. The findings and the impression was discussed with the patient. I attest to the documentation by the nurse practitioner. Time with Patient: Less than 30
--- NOTE | 2019-09-01 15:00 | P.PN ---
Subjective Progress Note Date: 09/01/19 Principal diagnosis: DVT and PE Unfortunetley Eliquis was not covered, although DOAC Xarelto was. So therefore patient will be discharged on xarelto starter pack at discharge. Objective - Vital Signs Vital signs: Vital Signs Temp 97.8 F 09/01/19 11:41 Pulse 81 09/01/19 11:45 Resp 18 09/01/19 11:45 BP 122/66 09/01/19 11:41 Pulse Ox 98 09/01/19 11:41 Intake & Output 08/31/19 09/01/19 09/01/19 18:59 06:59 18:59 Intake Total 160 1350 500 Output Total 450 350 Balance -290 1000 500 Weight 121 kg 121 kg Intake: IV 160 Sodium Chloride 0.9% 1, 160 000 ml @ 20 mls/hr IV . Q24H [facility] Rx#:[id number] Intake, IV Titration 250 Amount Heparin Sod,Pork in 0.45% 250 NaCl 25,000 unit In 0.45 % NaCl 1 250ml.bag @ 18 UNITS/KG/HR 21.228 mls/hr IV .[id number] [facility] Rx#: [id number] Tube Feeding 1100 500 Output: Urine 450 350 Other: Voiding Method Urinal Urinal # Voids 0 1 - Exam Gen: Alert, aphasia, forgetful, mild distress with respiratory effort on 5L NC head left black eye Neck: Adenopathy Mouth: Dry mucous membranes Heart: Tachycardia 118 Respi: Increased respiratory effort 28-30RR, 5L NC Abdomen: Soft, Feeding tube appears clean Ext: No edema noted Mood: Dementia at baseline - Labs CBC & Chem 7: 09/01/19 06:47 08/31/19 04:39 Labs: Abnormal Lab Results - Last 24 Hours (Table) 09/01/19 Range/Units 06:47 WBC 2.5 L (3.8-10.6) k/uL RBC 3.83 L (4.30-5.90) m/uL Hgb 11.7 L (13.0-17.5) gm/dL Hct 36.3 L (39.0-53.0) % Plt Count 146 L (150-450) k/uL Lymphocytes # 0.5 L (1.0-4.8) k/uL Microbiology - Last 24 Hours (Table) 08/29/19 16:45 Blood Culture - Preliminary Blood No Growth after 48 hours Assessment and Plan (1) Acute respiratory failure with hypoxia Current Visit: Yes Status: Acute Code(s): J96.01 - ACUTE RESPIRATORY FAILURE WITH HYPOXIA SNOMED Code(s): 02857124 (2) Syncopal episodes Current Visit: Yes Status: Acute Code(s): R55 - SYNCOPE AND COLLAPSE SNOMED Code(s): 510107597 (3) Pulmonary embolism, bilateral Current Visit: Yes Status: Acute Code(s): I26.99 - OTHER PULMONARY EMBOLISM WITHOUT ACUTE COR PULMONALE SNOMED Code(s): 29504839 (4) Hypotensive syncope Current Visit: Yes Status: Acute Code(s): R55 - SYNCOPE AND COLLAPSE SNOMED Code(s): 21723753 (5) Bronchospasm Current Visit: Yes Status: Acute Code(s): J98.01 - ACUTE BRONCHOSPASM SNOMED Code(s): 9941054 (6) Dehydration Current Visit: Yes Status: Acute Code(s): E86.0 - DEHYDRATION SNOMED Code(s): 98755838 (7) Elevated troponin Current Visit: Yes Status: Acute Code(s): R79.89 - OTHER SPECIFIED ABNORMAL FINDINGS OF BLOOD CHEMISTRY SNOMED Code(s): 055318349 (8) Head and neck cancer Current Visit: Yes Status: Acute Code(s): C76.0 - MALIGNANT NEOPLASM OF HEAD, FACE AND NECK SNOMED Code(s): 963518463 (9) Tachycardia Current Visit: Yes Status: Acute Code(s): R00.0 - TACHYCARDIA, UNSPECIFIED SNOMED Code(s): 1951336 Plan: Assessment and Recommendations: Acute Hypoxic Respiratory Failure: - Secondary to Bilateral Pulmonary Emboli - Does not wear home O2, requiring 5L Bilateral Pulmonary Emboli: New - Stop heparin sttart Xarelto - Monitor Platelet count and coags Right LE DVT Presyncopal: - Likely secondary to PE, Hypotension - CT head no acute etiology - Fall at Radiation treatment Hypotension/Tachycardia: - Likely secondary to pulmonary emboli but agree with full pina culture work-up 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 Xarelto was, although $317 deductible on Rx remaining, patient is aware. New prescription sent. - Follow-up made for dr. Gauthier 09/14 - Continue at Home with [facility]: Pt/OT versus Rehab at discharge to ensure safety and stamina, especially while on anticoagulation - Resume radiation and chemotherapy after follow-up in office at discharge. - Continue on 5 cans TF - Formula Via feeding tube per NN for weight loss >26 pounds.
--- NOTE | 2019-09-01 15:40 | FL ---
EXAMINATION TYPE: FL barium swallow w video DATE OF EXAM: 09/01/2019 COMPARISON: NONE HISTORY: Possible aspiration, tonsillar cancer TECHNIQUE: Fluoroscopy. FINDINGS: Fluoroscopic guidance was provided for the procedure performed in conjunction with the [facility] pathology department. Please see complete report forthcoming from the Speech Pathology departmen t. Various consistencies from thin liquid to solids were administered. Fluoroscopy time 55 seconds. Number of images: 0. Silent aspiration with deep penetration with thin liquids was observed. However, with chin tuck metho d no aspiration with thin liquids was evident. There was some penetration with nectar thick liquids w hich resolved with chin tuck method. Mild pooling was observed in the vallecula and piriforms. IMPRESSION: 1. Silent aspiration with thin liquids. 2. Penetration and aspiration was not evident utilizing chin tuck method.
--- NOTE | 2019-09-01 17:37 | P.PN ---
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 Patient has a known history of coronary artery disease with stent placement in 2005, he also has a recent diagnosis of tonsillar cancer diagnosed 2 months ago. Patient was seen and examined in intensive care unit he is alert and oriented 3 in no apparent distress, he denies any symptoms at this time, there is no fever or chills no headache or dizziness no chest pain, currently he has no shortness of breath he is maintained on oxygen via nasal cannula at 2 L/m, there is no cough no nausea or vomiting no abdominal pain no diarrhea no blood in the stools no burning was urination no frequency or urgency and no hematuria. Patient recently had PEG tube placed. On 08/31/2019 patient was seen and examined on the telemetry floor he is alert and oriented in no distress, hematoma around the left eye more pronounced. platelet count improving, patient denies any chest pain or shortness of breath. On 09/01/2019 patient was seen and examined on the medical floor, he is alert and oriented 3 in no apparent distress he denies any complaints at this time there is no fever or chills no headache or dizziness no chest pain no shortness of breath no cough no nausea or vomiting no abdominal pain no diarrhea no burning with urination no frequency or urgency and no hematuria hematoma around the left eye is stable since yesterday patient is maintained on PEG tube feeding swallow evaluation was scheduled for today to assess if patient can have any oral food . Objective - Vital Signs Vital signs: Vital Signs Temp 97.8 F 09/01/19 11:41 Pulse 81 09/01/19 11:45 Resp 18 09/01/19 11:45 BP 122/66 09/01/19 11:41 Pulse Ox 98 09/01/19 11:41 Intake & Output 08/31/19 09/01/19 09/01/19 18:59 06:59 18:59 Intake Total 160 1350 500 Output Total 450 350 Balance -290 1000 500 Weight 121 kg Intake: IV 160 Sodium Chloride 0.9% 1, 160 000 ml @ 20 mls/hr IV . Q24H [facility] Rx#:[id number] Intake, IV Titration 250 Amount Heparin Sod,Pork in 0.45% 250 NaCl 25,000 unit In 0.45 % NaCl 1 250ml.bag @ 18 UNITS/KG/HR 21.228 mls/hr IV .[id number] [facility] Rx#: [id number] Tube Feeding 1100 500 Output: Urine 450 350 Other: Voiding Method Urinal Urinal # Voids 0 1 - Exam In general patient is alert and oriented 3 in no apparent distress HEENT head normocephalic there is a bruise with hematoma around the left eye, which is worse than yesterday Neck is supple no JVD no goiter no lymphadenopathy Chest exam reveals a scattered crackles bilaterally no wheezing Cardiac exam reveals regular heart sounds no gallops no murmurs Abdomen is soft nontender no organomegaly with normal bowel sounds Extremity exam reveals the right lower extremity larger than the left with edema his laceration in the right pretibial area Neurological examination reveals no gross focal deficit - Labs CBC & Chem 7: 09/01/19 06:47 08/31/19 04:39 Labs: Abnormal Lab Results - Last 24 Hours (Table) 09/01/19 Range/Units 06:47 WBC 2.5 L (3.8-10.6) k/uL RBC 3.83 L (4.30-5.90) m/uL Hgb 11.7 L (13.0-17.5) gm/dL Hct 36.3 L (39.0-53.0) % Plt Count 146 L (150-450) k/uL Lymphocytes # 0.5 L (1.0-4.8) k/uL Microbiology - Last 24 Hours (Table) 08/29/19 16:45 Blood Culture - Preliminary Blood No Growth after 48 hours Assessment and Plan Plan: 1. Acute bilateral pulmonary embolism, started on IV heparin in the emergency room. Right lower extremity DVT 2. Dizziness and presyncope with fall and head trauma with a hematoma around the left eye 3. 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 4. Mild elevation in troponin level likely related to pulmonary embolism 5. Underlying history of coronary artery disease with remote history of angioplasty and stent placement 6. Recent placement of PEG tube for feeding 7. Underlying history of hypertension 8. Underlying history of hyperlipidemia 9. Underlying history of obstructive sleep apnea maintained on CPAP at home. 10. Thrombocytopenia worse today, platelet down to 81, hematology consult requested, if platelet count continues to decrease patient may need to have a Marilynn filter and be off IV heparin. At this time patient is admitted to intensive care unit he was started on IV heparin cardiology and pulmonary consultation were requested Home medication reviewed, and reorder Oncology consultation added Will follow closely
[2019-09-01] MEDS: PRAMIPEXOLE 1 MG TAB PO SCH (20:43)
[2019-09-01] MEDS: risperiDONE 0.5 MG TAB PO SCH (20:43)
[2019-09-01] MEDS: METOPROLOL TARTRATE 12.5 MG TAB PO SCH (20:44)
[2019-09-01] MEDS: MULTIVITAMINS, THERA 1 EACH TAB PO SCH (20:44)
[2019-09-01] MEDS: DONEPEZIL 10 MG TAB PO SCH (20:44)
[2019-09-01] MEDS: SERTRALINE 50 MG TAB PO SCH (20:44)
[2019-09-01] MEDS: ASPIRIN 81 MG PO SCH (20:44)
[2019-09-01] MEDS: ATORVASTATIN 20 MG TAB PO SCH (20:44)
[2019-09-02] MEDS: LIDOCAINE VISCOUS 2% 15 ML CUP MUCOUS MEM SCH ×4 (06:19→20:46)
[2019-09-02] MEDS: RIVAROXABAN 15 MG TAB PO SCH ×2 (06:19→17:36)
[2019-09-02] MEDS: PANTOPRAZOLE 40 MG/10 ML VIAL IV SCH (09:29)
--- NOTE | 2019-09-02 12:38 | P.PN ---
Subjective Progress Note Date: 09/02/19 This is a 74-year-old gentleman who has a history of head and neck cancer, had a syncopal episode while he was over in the oncology area preparing for radiation. A [facility] was called. Patient was then brought to the emergency room and subsequently admitted with diagnosis of acute bilateral pu lmonary embolism. The patient was seen and examined this morning, blood pressure 122/60 with a heart rate of 80, 98% on 3 L of oxygen. White blood cell count 2.5, hemoglobin 11.7, platelet count 146. IV heparin has been discontinued and patient has been initiated on Xarelto per PE protocol. 09/02/2019 Patient seen and examined this morning, appears to be more alert today, overall not feeling well according to him. Blood pressure 120/70 with a heart rate in the 70s, 90% on 3 L of oxygen. White blood cell count 2.5, hemoglobin 11.7, platelet count 146. Objective - Vital Signs Vital signs: Vital Signs Temp 98 F 09/02/19 08:00 Pulse 79 09/02/19 08:00 Resp 20 09/02/19 08:00 BP 121/75 09/02/19 08:00 Pulse Ox 98 09/02/19 08:00 Intake & Output 09/01/19 09/02/19 09/02/19 18:59 06:59 18:59 Intake Total 1470 600 200 Output Total 975 525 Balance 0550 375 325 Weight 121 kg 122 kg Intake: IV 240 Sodium Chloride 0.9% 1, 240 000 ml @ 20 mls/hr IV . Q24H [facility] Rx#:[id number] Oral 0 Tube Feeding 1200 600 200 Other 30 Output: Urine 975 525 Other: Voiding Method Urinal Urinal Urinal - Exam PHYSICAL EXAMINATION: GENERAL: 74-year-old patient acute distress at the time of my examination HEENT: Head is atraumatic, normocephalic. Pupils equal, round. Sclera anicteric. Conjunctiva are clear. Mucous membranes of the mouth are moist. Neck is supple. There is no elevated jugular venous pressure.] bruit is heard. HEART EXAMINATION: [Heart S1, S2 normal. No murmur or gallop heard.] CHEST EXAMINATION:[ Lungs are clear to auscultation and precussion. No chest wall tenderness is noted on palpation or with deep breathing.] ABDOMEN: [ Soft, nontender. Bowel sounds are heard. No organomegaly noted]. EXTREMITIES:[ 2+ peripheral pulses with no evidence of peripheral edema and no calf tenderness noted]. NEUROLOGIC [patient is awake, alert and oriented X1] . - Labs CBC & Chem 7: 09/01/19 06:47 08/31/19 04:39 Labs: Microbiology - Last 24 Hours (Table) 08/29/19 16:45 Blood Culture - Preliminary Blood No Growth after 72 hours Assessment and Plan Plan: Assessment and Plan: 1 acute bilateral pulmonary embolism, initiated on Xarelto per PE protocol 2 lightheadedness/presyncope, likely secondary to pulmonary embolism 3 tonsillar cancer, as the patient presented with a right neck mass and he was found to have cervical lymphadenopathy fine-needle of which was consistent with squamous cell carcinoma and furthermore PET scan revealed intense uptake within the cervical lymph nodes and the hypopharyngeal area and the patient was furthermore found to have a tonsillar mass and biopsy was consistent. Currently undergoing chemoradiation therapy. 4 thrombocytopenia 5 abnormal troponin is likely secondary to pulmonary embolism. EKG showing sinus tachycardia with a right bundle branch block pattern 6 coronary artery disease with remote stenting of the LAD with last cardiac catheterization being in 2018 showing patent coronaries and stent 7 hypertension 8 hyperlipidemia 9 obstructive sleep apnea maintained on CPAP therapy 10 history of skin cancer 11 history of cataracts 12 enteral feeding for nutritional support via PEG tube. 13 sinus tachycardia secondary to above. Could be also a component of dehydration, and the patient as well as pulmonary embolism. The sinus tachycardia is improved and the patient cardiac rhythm is sinus. 14 left orbital ecchymosis, will involve ophthalmology 15 leukopenia 16. Delirium, recovered Plan From cardiology's perspective, we will continue current medications. We will make the patient a follow-up appointment with Dr. Lamb in the office post discharge once he has discharged home. DNP note has been reviewed, I agree with a documented findings and plan of care. Patient was seen and examined.
--- NOTE | 2019-09-02 12:59 | P.PN ---
Subjective Progress Note Date: 09/02/19 Principal diagnosis: Acute bilateral pulmonary emboli, right lower extremity DVT The patient is seen today 09/02/2019 in follow-up on the selective care unit. He is awake and alert in no acute distress. Continues with left eye orbital bruising. He had been seen and evaluated by ophthalmology. He denies any worsening shortness of breath, cough or congestion. Maintaining O2 saturation the upper 90s on 3 L/m per nasal cannula. He's been afebrile. Hemodynamically stable. Blood cultures revealed no growth. Objective - Vital Signs Vital signs: Vital Signs Temp 98 F 09/02/19 08:00 Pulse 79 09/02/19 08:00 Resp 20 09/02/19 08:00 BP 121/75 09/02/19 08:00 Pulse Ox 98 09/02/19 08:00 Intake & Output 09/01/19 09/02/19 09/02/19 18:59 06:59 18:59 Intake Total 1470 600 200 Output Total 975 525 Balance 1470 -375 -325 Weight 121 kg 122 kg Intake: IV 240 Sodium Chloride 0.9% 1, 240 000 ml @ 20 mls/hr IV . Q24H [facility] Rx#:[id number] Oral 0 Tube Feeding 1200 600 200 Other 30 Output: Urine 975 525 Other: Voiding Method Urinal Urinal Urinal - Exam GENERAL EXAM: Alert, very pleasant, 74-year-old white male, 3 L of oxygen, comfortable in no apparent distress. Patient has significant bruising in his left periorbital area however seems to be less swollen on today's exam, extraocular movements are intact HEAD: Normocephalic/atraumatic. EYES: Normal reaction of pupils, equal size. Conjunctiva pink, sclera white. NOSE: Clear with pink turbinates. THROAT: No erythema or exudates. NECK: No masses, no JVD, no thyroid enlargement, no adenopathy. CHEST: No chest wall deformity. Symmetrical expansion. LUNGS: Equal air entry with no crackles, wheeze, rhonchi or dullness. CVS: Regular rate and rhythm, normal S1 and S2, no gallops, no murmurs, no rubs ABDOMEN: Soft, nontender. No hepatosplenomegaly, normal bowel sounds, no guarding or rigidity. PEG tube in place with the tube feedings in the form of TwoCal infusing at a rate of 50 ML per hour EXTREMITIES: No clubbing, no edema, no cyanosis, 2+ pulses and upper and lower extremities. MUSCULOSKELETAL: Muscle strength and tone normal. SPINE: No scoliosis or deformity SKIN: No rashes, abrasion over his right upper shoulder area, radiation changes over the right neck/cervical area CENTRAL NERVOUS SYSTEM: No focal deficits, tone is normal in all 4 extremities. PSYCHIATRIC: Alert and oriented -3. Appropriate affect. Intact judgment and insight. - Labs CBC & Chem 7: 09/01/19 06:47 08/31/19 04:39 Labs: Microbiology - Last 24 Hours (Table) 08/29/19 16:45 Blood Culture - Preliminary Blood No Growth after 72 hours Assessment and Plan Assessment: 1 acute bilateral pulmonary embolism, currently on IV heparin DVT of the right lower extremity including the popliteal and the femoral vein. No new symptoms and the patient has no chest pain or shortness of breath. Platelet counts are on the rise and the PTT is therapeutic. Initiated on Xarelto. 2 lightheadedness/presyncope, likely secondary to pulmonary embolism, with limited trauma to the left orbital area with secondary bruising and some skin abrasion. CAT scan of the brain is negative for any acute changes. CAT scan of the C-spine was negative. 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 Currently undergoing chemoradiation therapy. 4 thrombocytopenia, improving 5 abnormal troponin is likely secondary to pulmonary embolism. EKG showing sinus tachycardia with a right bundle branch block pattern 6 coronary artery disease with remote stenting of the LAD with last cardiac cat heterization being in 2018 showing patent coronaries and stent 7 hypertension 8 hyperlipidemia 9 obstructive sleep apnea maintained on CPAP therapy 10 history of skin cancer 11 history of cataracts 12 enteral feeding for nutritional support via PEG tube. 13 sinus tachycardia secondary to above. Could be also a component of dehydration, and the patient as well as pulmonary embolism. The sinus tachycardia is improved and the patient cardiac rhythm is sinus. 14 left orbital ecchymosis, will involve ophthalmology 15 leukopenia 16. Delirium, overnight, recovered Plan: The patient was seen and evaluated by Dr. Naranjo Currently stable from the pulmonary standpoint Anticoagulated with Xarelto Titrate down the FiO2 as tolerated We will see see as needed I, the cosigning physician, performed a history & physical examination of the patient. Lungs sounds are clear, diminished. Maintaining good O2 saturations in the 90s on 3 L/m per nasal cannula. I discussed the assessment and plan of care with my nurse practitioner, Princess Roth. I attest to the above note as dictated by her.
--- NOTE | 2019-09-02 13:54 | XR ---
EXAMINATION TYPE: XR chest 1V portable DATE OF EXAM: 09/02/2019 HISTORY: Dyspnea. REFERENCE: Previous study dated 08/28/2019. FINDINGS: There is a left shoulder arthroplasty in place. Heart size upper limits of normal. There is platelike atelectasis in the left lung base. Lungs otherw ise clear. Pleural spaces are clear. IMPRESSION: 1. BORDERLINE CARDIOMEGALY. 2. PLATELIKE ATELECTASIS, LEFT LUNG BASE.
--- NOTE | 2019-09-02 15:54 | P.PN ---
Subjective Progress Note Date: 09/02/19 Michael Cintron is a 74-year-old male who was having any radiation oncology visit for tonsillar cancer, when he felt dizzy and lightheaded, MATTHIAS YAÑEZ was called, however patient was found to to be conscious with evidence of bradycardia, patient was complaining of shortness of breath but no chest pain, he had the bruise around the left eye which patient states is new, patient also has laceration around the shoulders and the right pretibial area, he was brought into emergency room and was evaluated, computed tomography scan angiogram of the lungs revealed evidence of bilateral pulmonary embolism, he was started on IV heparin and was admitted to intensive care unit. Patient has a known history of coronary artery disease with stent placement in 2005, he also has a recent diagnosis of tonsillar cancer diagnosed 2 months ago. Patient was seen and examined in intensive care unit he is alert and oriented 3 in no apparent distress, he denies any symptoms at this time, there is no fever or chills no headache or dizziness no chest pain, currently he has no shortness of breath he is maintained on oxygen via nasal cannula at 2 L/m, there is no cough no nausea or vomiting no abdominal pain no diarrhea no blood in the stools no burning was urination no frequency or urgency and no hematuria. Patient recently had PEG tube placed. On 08/31/2019 patient was seen and examined on the telemetry floor he is alert and oriented in no distress, hematoma around the left eye more pronounced. platelet count improving, patient denies any chest pain or shortness of breath. On 09/01/2019 patient was seen and examined on the medical floor, he is alert and oriented 3 in no apparent distress he denies any complaints at this time there is no fever or chills no headache or dizziness no chest pain no shortness of breath no cough no nausea or vomiting no abdominal pain no diarrhea no burning with urination no frequency or urgency and no hematuria hematoma around the left eye is stable since yesterday patient is maintained on PEG tube feeding swallow evaluation was scheduled for today to assess if patient can have any oral food . On 09/02/2019 patient was seen and examined on the medical floor he is more alert and oriented today he is sitting on the edge of the bed is maintained on oxygen via nasal cannula there is no fever or chills no headache or dizziness no chest pain no shortness of breath no cough no nausea or vomiting no abdominal pain no diarrhea no burning with urination no frequency or urgency no hematuria, hematoma around the left eye is stable, patient was started on Xarelto Objective - Vital Signs Vital signs: Vital Signs Temp 97.4 F L 09/02/19 12:00 Pulse 77 09/02/19 12:00 Resp 22 09/02/19 12:00 BP 127/77 09/02/19 12:00 Pulse Ox 97 09/02/19 12:00 Intake & Output 09/01/19 09/02/19 09/02/19 18:59 06:59 18:59 Intake Total 1470 600 400 Output Total 975 750 Balance 1470 -375 -350 Weight 121 kg 122 kg Intake: IV 240 Sodium Chloride 0.9% 1, 240 000 ml @ 20 mls/hr IV . Q24H [facility] Rx#:[id number] Oral 0 Tube Feeding 1200 600 400 Other 30 Output: Urine 975 750 Other: Voiding Method Urinal Urinal Urinal - Exam In general patient is alert and oriented 3 in no apparent distress HEENT head normocephalic there is a bruise with hematoma around the left eye, which is worse than yesterday Neck is supple no JVD no goiter no lymphadenopathy Chest exam reveals a scattered crackles bilaterally no wheezing Cardiac exam reveals regular heart sounds no gallops no murmurs Abdomen is soft nontender no organomegaly with normal bowel sounds Extremity exam reveals the right lower extremity larger than the left with edema his laceration in the right pretibial area Neurological examination reveals no gross focal deficit - Labs CBC & Chem 7: 09/01/19 06:47 08/31/19 04:39 Labs: Microbiology - Last 24 Hours (Table) 08/29/19 16:45 Blood Culture - Preliminary Blood No Growth after 72 hours Assessment and Plan Plan: 1. Acute bilateral pulmonary embolism, started on IV heparin in the emergency room. Right lower extremity DVT 2. Dizziness and presyncope with fall and head trauma with a hematoma around the left eye 3. 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 4. Mild elevation in troponin level likely related to pulmonary embolism 5. Underlying history of coronary artery disease with remote history of angioplasty and stent placement 6. Recent placement of PEG tube for feeding 7. Underlying history of hypertension 8. Underlying history of hyperlipidemia 9. Underlying history of obstructive sleep apnea maintained on CPAP at home. 10. Thrombocytopenia worse today, platelet down to 81, hematology consult requested, if platelet count continues to decrease patient may need to have a Marilynn filter and be off IV heparin. At this time patient is admitted to intensive care unit he was started on IV heparin cardiology and pulmonary consultation were requested Home medication reviewed, and reorder Oncology consultation added Will follow closely
[2019-09-02] MEDS: SODIUM CHLORIDE 0.9% 1,000 ML IV SCH (20:44)
[2019-09-02] MEDS: PRAMIPEXOLE 1 MG TAB PO SCH (20:47)
[2019-09-02] MEDS: METOPROLOL TARTRATE 12.5 MG TAB PO SCH (20:47)
[2019-09-02] MEDS: ASPIRIN 81 MG PO SCH (20:47)
[2019-09-02] MEDS: ATORVASTATIN 20 MG TAB PO SCH (20:47)
[2019-09-02] MEDS: MULTIVITAMINS, THERA 1 EACH TAB PO SCH (20:47)
[2019-09-02] MEDS: risperiDONE 0.5 MG TAB PO SCH (20:47)
[2019-09-02] MEDS: SERTRALINE 50 MG TAB PO SCH (20:47)
[2019-09-02] MEDS: DONEPEZIL 10 MG TAB PO SCH (20:47)
[2019-09-03] MEDS: RIVAROXABAN 15 MG TAB PO SCH ×2 (06:28→18:06)
[2019-09-03] MEDS: LIDOCAINE VISCOUS 2% 15 ML CUP MUCOUS MEM SCH ×3 (06:28→18:06)
[2019-09-03 06:52] LABS: Basophils % (A) 0 %; Eosinophils % (A) 1 %; HGB 12.9 gm/dL (13.0-17.5); Lymphocytes # (A) 0.6 k/uL (1.0-4.8); Lymphocytes % (A) 19 %; MCH 30.6 pg (25.0-35.0); MCHC 32.3 g/dL (31.0-37.0); MCV 94.8 fL (80.0-100.0); Mean Platelet Volume 7.1; Monocytes # (A) 0.2 k/uL (0-1.0); Monocytes % (A) 6 %; Neutrophils # (A) 2.2 k/uL (1.3-7.7); Neutrophils % (A) 70 %; Platelet Count 198 k/uL (150-450); RBC 4.22 m/uL (4.30-5.90); RDW 15.2 % (11.5-15.5); WBC 3.1 k/uL (3.8-10.6)
[2019-09-03 06:57] LABS: ALT 46 U/L (4-49); AST 47 U/L (17-59); African American GFR (CKD) >90 (>60 ml/min/1.73 sqM); Albumin 2.6 g/dL (3.5-5.0); Alkaline Phosphatase 105 U/L (38-126); Anion Gap 5 mmol/L; Blood Urea Nitrogen 17 mg/dL (9-20); Carbon Dioxide 26 mmol/L (22-30); Chloride 102 mmol/L (98-107); Glucose 120 mg/dL (74-99); Non-African American GFR(CKD) 90 (>60 ml/min/1.73 sqM); Potassium 4.7 mmol/L (3.5-5.1); Sodium 133 mmol/L (137-145); Total Bilirubin 0.6 mg/dL (0.2-1.3); Total Protein 5.3 g/dL (6.3-8.2)
[2019-09-03] MEDS: PANTOPRAZOLE 40 MG/10 ML VIAL IV SCH (08:04)
--- NOTE | 2019-09-03 11:34 | P.PN ---
Subjective Progress Note Date: 09/03/19 On 09/03/2019, the patient is comfortable nonacute distress and the patient is taking Xarelto without any major complications. Hemoglobin stable. The left eye ecchymotic areas also improving. He is nothing by mouth. He is receiving enteral feeding for nutritional support. 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 No other significant events overnight. Feeling a bit weak. No altered mentation. Objective - Vital Signs Vital signs: Vital Signs Temp 98.5 F 09/03/19 08:00 Pulse 98 09/03/19 08:00 Resp 18 09/03/19 08:00 BP 145/74 09/03/19 08:00 Pulse Ox 97 09/03/19 08:00 Intake & Output 09/02/19 09/03/19 09/03/19 18:59 06:59 18:59 Intake Total 1390 600 460 Output Total 950 425 Balance 440 175 460 Weight 119 kg Intake: IV 550 260 Sodium Chloride 0.9% 1, 20 000 ml @ 20 mls/hr IV . Q24H [facility] Rx#:[id number] tube feed 550 240 Oral 240 Tube Feeding 600 600 200 Output: Urine 950 425 Other: Voiding Method Urinal Urinal Urinal - Exam GENERAL EXAM: Alert, very pleasant, 74-year-old white male, 3 L of oxygen, c omfortable in no apparent distress. Patient has significant bruising in his left periorbital area however seems to be less swollen on today's exam, extraocular movements are intact HEAD: Normocephalic/atraumatic. EYES: Normal reaction of pupils, equal size. Conjunctiva pink, sclera white. NOSE: Clear with pink turbinates. THROAT: No erythema or exudates. NECK: No masses, no JVD, no thyroid enlargement, no adenopathy. CHEST: No chest wall deformity. Symmetrical expansion. LUNGS: Equal air entry with no crackles, wheeze, rhonchi or dullness. CVS: Regular rate and rhythm, normal S1 and S2, no gallops, no murmurs, no rubs ABDOMEN: Soft, nontender. No hepatosplenomegaly, normal bowel sounds, no guarding or rigidity. PEG tube in place with the tube feedings in the form of TwoCal infusing at a rate of 50 ML per hour EXTREMITIES: No clubbing, no edema, no cyanosis, 2+ pulses and upper and lower extremities. MUSCULOSKELETAL: Muscle strength and tone normal. SPINE: No scoliosis or deformity SKIN: No rashes, abrasion over his right upper shoulder area, radiation changes over the right neck/cervical area CENTRAL NERVOUS SYSTEM: No focal deficits, tone is normal in all 4 extremities. PSYCHIATRIC: Alert and oriented -3. Appropriate affect. Intact judgment and insight. - Labs CBC & Chem 7: 09/03/19 06:03 09/03/19 06:03 Labs: Abnormal Lab Results - Last 24 Hours (Table) 09/03/19 09/03/19 Range/Units 06:03 06:03 WBC 3.1 L (3.8-10.6) k/uL RBC 4.22 L (4.30-5.90) m/uL Hgb 12.9 L (13.0-17.5) gm/dL Lymphocytes # 0.6 L (1.0-4.8) k/uL Sodium 133 L (137-145) mmol/L Glucose 120 H (74-99) mg/dL Calcium 8.0 L (8.4-10.2) mg/dL Total Protein 5.3 L (6.3-8.2) g/dL Albumin 2.6 L (3.5-5.0) g/dL Microbiology - Last 24 Hours (Table) 08/29/19 16:45 Blood Culture - Preliminary Blood No Growth after 96 hours Assessment and Plan Plan: 1 acute bilateral pulmonary embolism, on Xarelto. No side effects or bleeding complications. 2 lightheadedness/presyncope, likely secondary to pulmonary embolism, with limited trauma to the left orbital area with secondary bruising and some skin abrasion. CAT scan of the brain is negative for any acute changes. CAT scan of the C-spine was negative. 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 Currently undergoing chemoradiation therapy. 4 thrombocytopenia, improving, Platelet count is up to 198 5 abnormal troponin is likely secondary to pulmonary embolism. EKG showing sinus tachycardia with a right bundle branch block pattern 6 coronary artery disease with remote stenting of the LAD with last cardiac catheterization being in 2018 showing patent coronaries and stent 7 hypertension 8 hyperlipidemia 9 obstructive sleep apnea maintained on CPAP therapy 10 history of skin cancer 11 history of cataracts 12 enteral feeding for nutritional support via PEG tube. 13 sinus tachycardia secondary to above. Could be also a component of dehydration, and the patient as well as pulmonary embolism. The sinus tachycardia is improved and the patient cardiac rhythm is sinus. 14 left orbital ecchymosis, will involve ophthalmology 15 leukopenia 16. Delirium, overnight, recovered Plan Continue Xarelto Monitor hemoglobin Watch for signs of bleeding Discharge planning per general medicine Wean down the FiO2 to maintain a saturation above 90% and evaluate this patient for home O2. Aspiration precautions Continue enteral feeding for nutritional support
--- NOTE | 2019-09-03 11:53 | P.PN ---
Subjective Progress Note Date: 09/03/19 Michael Cintron is a 74-year-old male who was having any radiation oncology visit for tonsillar cancer, when he felt dizzy and lightheaded, MATTHIAS YAÑEZ was called, however patient was found to to be conscious with evidence of bradycardia, patient was complaining of shortness of breath but no chest pain, he had the bruise around the left eye which patient states is new, patient also has laceration around the shoulders and the right pretibial area, he was brought into emergency room and was evaluated, computed tomography scan angiogram of the lungs revealed evidence of bilateral pulmonary embolism, he was started on IV heparin and was admitted to intensive care unit. Patient has a known history of coronary artery disease with stent placement in 2005, he also has a recent diagnosis of tonsillar cancer diagnosed 2 months ago. Patient was seen and examined in intensive care unit he is alert and oriented 3 in no apparent distress, he denies any symptoms at this time, there is no fever or chills no headache or dizziness no chest pain, currently he has no shortness of breath he is maintained on oxygen via nasal cannula at 2 L/m, there is no cough no nausea or vomiting no abdominal pain no diarrhea no blood in the stools no burning was urination no frequency or urgency and no hematuria. Patient recently had PEG tube placed. On 08/31/2019 patient was seen and examined on the telemetry floor he is alert and oriented in no distress, hematoma around the left eye more pronounced. platelet count improving, patient denies any chest pain or shortness of breath. On 09/01/2019 patient was seen and examined on the medical floor, he is alert and oriented 3 in no apparent distress he denies any complaints at this time there is no fever or chills no headache or dizziness no chest pain no shortness of breath no cough no nausea or vomiting no abdominal pain no diarrhea no burning with urination no frequency or urgency and no hematuria hematoma around the left eye is stable since yesterday patient is maintained on PEG tube feeding swallow evaluation was scheduled for today to assess if patient can have any oral food . On 09/02/2019 patient was seen and examined on the medical floor he is more alert and oriented today he is sitting on the edge of the bed is maintained on oxygen via nasal cannula there is no fever or chills no headache or dizziness no chest pain no shortness of breath no cough no nausea or vomiting no abdominal pain no diarrhea no burning with urination no frequency or urgency no hematuria, hematoma around the left eye is stable, patient was started on Xarelto On 09/03/2019 patient was seen and examined on the medical floor he is alert and oriented in no apparent distress he is complaining of generalized weakness otherwise he denies any complaints bruise around the left eye is stable there is no fever or chills no headache or dizziness no chest pain no shortness of breath no cough no nausea or vomiting no abdominal pain no diarrhea no burning with urination no frequency or urgency and no hematuria Objective - Vital Signs Vital signs: Vital Signs Temp 98.5 F 09/03/19 08:00 Pulse 98 09/03/19 08:00 Resp 18 09/03/19 08:00 BP 145/74 09/03/19 08:00 Pulse Ox 97 09/03/19 08:00 Intake & Output 09/02/19 09/03/19 09/03/19 18:59 06:59 18:59 Intake Total 1390 600 460 Output Total 950 425 Balance 440 175 460 Weight 119 kg Intake: IV 550 260 Sodium Chloride 0.9% 1, 20 000 ml @ 20 mls/hr IV . Q24H [facility] Rx#:[id number] tube feed 550 240 Oral 240 Tube Feeding 600 600 200 Output: Urine 950 425 Other: Voiding Method Urinal Urinal Urinal - Exam In general patient is alert and oriented 3 in no apparent distress HEENT head normocephalic there is a bruise with hematoma around the left eye, which is worse than yesterday Neck is supple no JVD no goiter no lymphadenopathy Chest exam reveals a scattered crackles bilaterally no wheezing Cardiac exam reveals regular heart sounds no gallops no murmurs Abdomen is soft nontender no organomegaly with normal bowel sounds Extremity exam reveals the right lower extremity larger than the left with edema his laceration in the right pretibial area Neurological examination reveals no gross focal deficit - Labs CBC & Chem 7: 09/03/19 06:03 09/03/19 06:03 Labs: Abnormal Lab Results - Last 24 Hours (Table) 09/03/19 09/03/19 Range/Units 06:03 06:03 WBC 3.1 L (3.8-10.6) k/uL RBC 4.22 L (4.30-5.90) m/uL Hgb 12.9 L (13.0-17.5) gm/dL Lymphocytes # 0.6 L (1.0-4.8) k/uL Sodium 133 L (137-145) mmol/L Glucose 120 H (74-99) mg/dL Calcium 8.0 L (8.4-10.2) mg/dL Total Protein 5.3 L (6.3-8.2) g/dL Albumin 2.6 L (3.5-5.0) g/dL Microbiology - Last 24 Hours (Table) 08/29/19 16:45 Blood Culture - Preliminary Blood No Growth after 96 hours Assessment and Plan Plan: 1. Acute bilateral pulmonary embolism, started on IV heparin in the emergency room. Right lower extremity DVT 2. Dizziness and presyncope with fall and head trauma with a hematoma around the left eye 3. 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 4. Mild elevation in troponin level likely related to pulmonary embolism 5. Underlying history of coronary artery disease with remote history of angioplasty and stent placement 6. Recent placement of PEG tube for feeding 7. Underlying history of hypertension 8. Underlying history of hyperlipidemia 9. Underlying history of obstructive sleep apnea maintained on CPAP at home. 10. Thrombocytopenia worse today, platelet down to 81, hematology consult requested, if platelet count continues to decrease patient may need to have a Marilynn filter and be off IV heparin. At this time patient is admitted to intensive care unit he was started on IV heparin cardiology and pulmonary consultation were requested Home medication reviewed, and reorder Oncology consultation added Will follow closely
--- NOTE | 2019-09-03 12:33 | P.PN ---
Subjective Progress Note Date: 09/03/19 This is a 74-year-old gentleman who has a history of head and neck cancer, had a syncopal episode while he was over in the oncology area preparing for radiation. A CODE BLUE was called. Patient was then brought to the emergency room and subsequently admitted with diagnosis of acute bilateral pu lmonary embolism. The patient was seen and examined this morning, blood pressure 122/60 with a heart rate of 80, 98% on 3 L of oxygen. White blood cell count 2.5, hemoglobin 11.7, platelet count 146. IV heparin has been discontinued and patient has been initiated on Xarelto per PE protocol. 09/02/2019 Patient seen and examined this morning, appears to be more alert today, overall not feeling well according to him. Blood pressure 120/70 with a heart rate in the 70s, 90% on 3 L of oxygen. White blood cell count 2.5, hemoglobin 11.7, platelet count 146. 09/03/2019 Patient was seen and examined this morning, blood pressure 132/70 with a heart rate in the 90s, 96% on 3 L of oxygen. White blood cell count 3.1, hemoglobin 12.9, platelet count 198. Sodium 133, potassium 4.7, BUN 17, creatinine 0.7. Objective - Vital Signs Vital signs: Vital Signs Temp 99.1 F 09/03/19 12:00 Pulse 101 H 09/03/19 12:00 Resp 18 09/03/19 12:00 BP 132/78 09/03/19 12:00 Pulse Ox 96 09/03/19 12:00 Intake & Output 09/02/19 09/03/19 09/03/19 18:59 06:59 18:59 Intake Total 1390 600 660 Output Total 950 425 Balance 440 175 660 Weight 119 kg Intake: IV 550 260 Sodium Chloride 0.9% 1, 20 000 ml @ 20 mls/hr IV . Q24H [facility] Rx#:[id number] tube feed 550 240 Oral 240 Tube Feeding 600 600 400 Output: Urine 950 425 Other: Voiding Method Urinal Urinal Urinal # Voids 3 - Exam PHYSICAL EXAMINATION: GENERAL: 74-year-old patient acute distress at the time of my examination HEENT: Head is atraumatic, normocephalic. Pupils equal, round. Sclera anicteric. Conjunctiva are clear. Mucous membranes of the mouth are moist. Neck is supple. There is no elevated jugular venous pressure.] bruit is heard. HEART EXAMINATION: [Heart S1, S2 normal. No murmur or gallop heard.] CHEST EXAMINATION:[ Lungs are clear to auscultation and precussion. No chest wall tenderness is noted on palpation or with deep breathing.] ABDOMEN: [ Soft, nontender. Bowel sounds are heard. No organomegaly noted]. EXTREMITIES:[ 2+ peripheral pulses with no evidence of peripheral edema and no calf tenderness noted]. NEUROLOGIC [patient is awake, alert and oriented X1] . - Labs CBC & Chem 7: 09/03/19 06:03 09/03/19 06:03 Labs: Abnormal Lab Results - Last 24 Hours (Table) 09/03/19 09/03/19 Range/Units 06:03 06:03 WBC 3.1 L (3.8-10.6) k/uL RBC 4.22 L (4.30-5.90) m/uL Hgb 12.9 L (13.0-17.5) gm/dL Lymphocytes # 0.6 L (1.0-4.8) k/uL Sodium 133 L (137-145) mmol/L Glucose 120 H (74-99) mg/dL Calcium 8.0 L (8.4-10.2) mg/dL Total Protein 5.3 L (6.3-8.2) g/dL Albumin 2.6 L (3.5-5.0) g/dL Microbiology - Last 24 Hours (Table) 08/29/19 16:45 Blood Culture - Preliminary Blood No Growth after 96 hours Assessment and Plan Plan: Assessment and Plan: 1 acute bilateral pulmonary embolism, initiated on Xarelto per PE protocol 2 lightheadedness/presyncope, likely secondary to pulmonary embolism 3 tonsillar cancer, as the patient presented with a right neck mass and he was found to have cervical lymphadenopathy fine-needle of which was consistent with squamous cell carcinoma and furthermore PET scan revealed intense uptake within the cervical lymph nodes and the hypopharyngeal area and the patient was furthermore found to have a tonsillar mass and biopsy was consistent. Currently undergoing chemoradiation therapy. 4 thrombocytopenia 5 abnormal troponin is likely secondary to pulmonary embolism. EKG showing sinus tachycardia with a right bundle branch block pattern 6 coronary artery disease with remote stenting of the LAD with last cardiac cath eterization being in 2018 showing patent coronaries and stent 7 hypertension 8 hyperlipidemia 9 obstructive sleep apnea maintained on CPAP therapy 10 history of skin cancer 11 history of cataracts 12 enteral feeding for nutritional support via PEG tube. 13 sinus tachycardia secondary to above. Could be also a component of dehydration, and the patient as well as pulmonary embolism. The sinus tachycardia is improved and the patient cardiac rhythm is sinus. 14 left orbital ecchymosis, will involve ophthalmology 15 leukopenia 16. Delirium, recovered Plan From cardiology's perspective, we will continue current medications. We will make the patient a follow-up appointment with Dr. Piedra in the office post discharge once he has discharged home. DNP note has been reviewed, I agree with a documented findings and plan of care. Patient was seen and examined.
[2019-09-03] MEDS ORDERED: FUROSEMIDE 10 MG/ML 4 ML VIAL IV STA (14:40)
--- NOTE | 2019-09-03 15:15 | XR ---
EXAMINATION TYPE: XR chest 1V portable DATE OF EXAM: 09/03/2019 COMPARISON: 09/02/2019 HISTORY: Short of breath TECHNIQUE: FINDINGS: There is some atelectasis at the left lung base. There is left shoulder prosthesis. Heart i s slightly enlarged. There is no heart failure. There are no hilar masses. There are chest leads. The re is possible infiltrate in the right lower lobe right paraspinal region. IMPRESSION: Mild atelectasis left lung base unchanged. No heart failure seen. There is possible new r ight lower lobe right paraspinal infiltrate compared to yesterday.
--- NOTE | 2019-09-03 15:55 | CT ---
EXAMINATION TYPE: CT brain wo con DATE OF EXAM: 09/03/2019 COMPARISON: 08/29/2019 HISTORY: increased confsuion CT DLP: 1094.4 mGycm Automated exposure control for dose reduction was used. There is cerebral cortical atrophy. There is some patchy hypodensity in the periventricular white mat ter. There is no mass effect nor midline shift. There is no sign of intracranial hemorrhage. The calv arium is intact. IMPRESSION: Cerebral atrophy and chronic small vessel ischemia. No acute intracranial abnormality. No change.
[2019-09-03 16:33] LABS: Basophils % (A) 1 %; Eosinophils % (A) 1 %; HCT 43.6 % (39.0-53.0); HGB 14.2 gm/dL (13.0-17.5); Lymphocytes # (A) 0.9 k/uL (1.0-4.8); Lymphocytes % (A) 20 %; MCH 30.7 pg (25.0-35.0); MCHC 32.7 g/dL (31.0-37.0); MCV 93.8 fL (80.0-100.0); Mean Platelet Volume 7.1; Monocytes # (A) 0.3 k/uL (0-1.0); Monocytes % (A) 7 %; Neutrophils # (A) 3.1 k/uL (1.3-7.7); Neutrophils % (A) 70 %; Platelet Count 253 k/uL (150-450); RBC 4.65 m/uL (4.30-5.90); RDW 15.1 % (11.5-15.5); WBC 4.5 k/uL (3.8-10.6)
[2019-09-03 16:36] LABS: African American GFR (CKD) >90 (>60 ml/min/1.73 sqM); Anion Gap 6 mmol/L; Blood Urea Nitrogen 18 mg/dL (9-20); Calcium 8.3 mg/dL (8.4-10.2); Carbon Dioxide 28 mmol/L (22-30); Chloride 96 mmol/L (98-107); Glucose 116 mg/dL (74-99); Non-African American GFR(CKD) 86 (>60 ml/min/1.73 sqM); Potassium 4.5 mmol/L (3.5-5.1); Sodium 130 mmol/L (137-145)
[2019-09-03 17:50] LABS: ABG Base Excess 3.8 mmol/L; ABG HCO3 26 mmol/L (21-25); ABG PCO2 28 mmHg (35-45); ABG PO2 72 mmHg (83-108); ABG TCO2 27 mmol/L (19-24); Allen Test Performed? Yes
[2019-09-03 17:58] LABS: ABG PH 7.57 (7.35-7.45)
[2019-09-03] MEDS: SODIUM CHLORIDE 0.9% 1,000 ML IV SCH (18:06)
[2019-09-03 18:46] LABS: Glucose,Whole Blood 106 mg/dL (75-99)
--- NOTE | 2019-09-03 19:01 | CT ---
EXAMINATION TYPE: CT angio chest DATE OF EXAM: 09/03/2019 COMPARISON: 08/29/2019 HISTORY: SOB, PE CT DLP: 857.5 mGycm Automated exposure control for dose reduction was used. CONTRAST: Performed with IV Contrast, patient injected with 100 mL of Isovue 370. There are 3-D post processed images. There is coarse interstitial infiltrates in the mid and lower lung martini. There is patchy atelectasi s at the lung bases. There is no pleural effusion. There is some airspace mild consolidation at the p osterior lung bases. Heart appears slightly enlarged. Thoracic aorta is atheromatous. There is no med iastinal adenopathy. There is mild aneurysm of the thoracic aorta measures 4 cm. There is some plaque formation posterior wall of the descending thoracic aorta. There is 4.5 cm solid-appearing mass on t he lateral aspect of the right kidney. There are enlarged right bronchial lymph nodes up to 1.5 cm. There are filling defects in the left lo wer lobe pulmonary artery. Thoracic spine is intact. There is no compression fracture. IMPRESSION: Patchy bilateral pulmonary infiltrates and atelectasis in the lower lobes. Cardiomegaly. Pulmonary abnormality increased compared to recent exam. Mild thoracic aortic aneurysm. Left lower lobe pulmonary embolism. I see no evidence of a new embolism compared to recent CT scan. Right renal mass suspicious for tumor.
[2019-09-03] MEDS: SERTRALINE 50 MG TAB PO SCH (21:55)
[2019-09-03] MEDS: PRAMIPEXOLE 1 MG TAB PO SCH (21:55)
[2019-09-03] MEDS: METOPROLOL TARTRATE 12.5 MG TAB PO SCH (21:55)
[2019-09-03] MEDS: MULTIVITAMINS, THERA 1 EACH TAB PO SCH (21:55)
[2019-09-03] MEDS: ATORVASTATIN 20 MG TAB PO SCH (21:55)
[2019-09-03] MEDS: ASPIRIN 81 MG PO SCH (21:55)
[2019-09-03] MEDS: DONEPEZIL 10 MG TAB PO SCH (21:55)
[2019-09-03] MEDS: risperiDONE 0.5 MG TAB PO SCH (22:16)
[2019-09-03] MEDS: HYDROcodone/APAP 5-325MG 1 EACH TAB PO PRN (22:17)
[2019-09-03 22:34] LABS: Appearance,Urine Clear (Clear); Bilirubin,Urine Negative (Negative); Blood,Urine Small (Negative); Color,Urine Yellow; Glucose,Urine (UA) Negative (Negative); Hyaline Casts,Urine 1 /lpf (0-2); Ketones,Urine Negative (Negative); Leukocyte Esterase,Urine Negative (Negative); Nitrite,Urine Negative (Negative); PH, Urine 6.5 (5.0-8.0); Protein,Urine Negative (Negative); RBC,Urine 10 /hpf (0-5); Specific Gravity,Urine 1.038 (1.001-1.035); Squamous Epithelial Cell,Urine <1 /hpf (0-4); Urobilinogen,Urine <2.0 mg/dL (<2.0); WBC,Urine 2 /hpf (0-5)
[2019-09-04] MEDS: PIPERACILLIN-TAZOBACTAM 3.375 GM in SODIUM CHLORIDE 0.9% 100 ML IVPB SCH ×3 (00:58→15:35)
[2019-09-04] MEDS: LIDOCAINE VISCOUS 2% 15 ML CUP MUCOUS MEM SCH ×5 (01:39→23:27)
[2019-09-04 04:52] LABS: Basophils % (A) 0 %; Eosinophils # (A) 0.1 k/uL (0-0.7); Eosinophils % (A) 1 %; HCT 40.2 % (39.0-53.0); HGB 13.5 gm/dL (13.0-17.5); Lymphocytes # (A) 0.8 k/uL (1.0-4.8); Lymphocytes % (A) 15 %; MCH 31.4 pg (25.0-35.0); MCHC 33.4 g/dL (31.0-37.0); MCV 94.1 fL (80.0-100.0); Mean Platelet Volume 7.1; Monocytes # (A) 0.4 k/uL (0-1.0); Monocytes % (A) 7 %; Neutrophils % (A) 74 %; Platelet Count 219 k/uL (150-450); RBC 4.28 m/uL (4.30-5.90); RDW 15.3 % (11.5-15.5); WBC 5.5 k/uL (3.8-10.6)
[2019-09-04 05:01] LABS: ALT 43 U/L (4-49); AST 37 U/L (17-59); African American GFR (CKD) >90 (>60 ml/min/1.73 sqM); Albumin 2.8 g/dL (3.5-5.0); Alkaline Phosphatase 79 U/L (38-126); Anion Gap 7 mmol/L; Blood Urea Nitrogen 22 mg/dL (9-20); Calcium 8.4 mg/dL (8.4-10.2); Carbon Dioxide 24 mmol/L (22-30); Chloride 99 mmol/L (98-107); Glucose 119 mg/dL (74-99); Non-African American GFR(CKD) 85 (>60 ml/min/1.73 sqM); Potassium 4.5 mmol/L (3.5-5.1); Sodium 130 mmol/L (137-145); Total Bilirubin 0.9 mg/dL (0.2-1.3); Total Protein 5.6 g/dL (6.3-8.2)
--- NOTE | 2019-09-04 07:42 | XR ---
EXAMINATION TYPE: XR chest 1V DATE OF EXAM: 09/04/2019 COMPARISON: 09/03/2019 HISTORY: Shortness of breath TECHNIQUE: Single frontal view of the chest is obtained. FINDINGS: Postsurgical change left shoulder arthropathy bilaterally. Subsegmental changes are seen b ilaterally with reduced inspiration. Heart size stable. No pneumothorax. No overt failure. IMPRESSION: 1. Stable bilateral lower lobe atelectasis versus infiltrate.
[2019-09-04] MEDS: PANTOPRAZOLE 40 MG/10 ML VIAL IV SCH (08:57)
[2019-09-04] MEDS: RIVAROXABAN 15 MG TAB PO SCH ×2 (08:58→18:13)
[2019-09-04] MEDS: NEOMYCIN-BACITRACIN-POLY OINT 14 GM TUBE TOPICAL SCH (09:59)
[2019-09-04] MEDS: SODIUM CHLORIDE 0.9% 1,000 ML IV SCH ×2 (10:00→23:27)
--- NOTE | 2019-09-04 11:43 | PN ---
PROGRESS NOTE Michael is a 74-year-old gentleman who is admitted to the hospital following syncope due to large pulmonary embolism. He is currently on oral anticoagulant and yesterday he became less responsive due to which he is transferred to ICU. This morning, he is barely responding to his name, but other than that he is hemodynamically stable. Does not have any other issues with him. On exam, heart rate is 73 beats per minute. Blood pressure is 103/70. Respirations 18. There is no jugular venous distention. Chest exam reveals good air entry bilaterally. Heart exam reveals first and second heart sounds. No gallop. No murmur. Abdomen soft. Exam of extremities did not reveal any edema. Peripheral pulses are palpable. The patient is currently on aspirin, Lipitor, Xarelto and Lopressor. ASSESSMENT: 1. Syncope secondary to pulmonary embolism. 2. His blood gases yesterday show respiratory alkalosis probably secondary to hyperventilation. MMODL / IJN: [id number] /
--- NOTE | 2019-09-04 12:20 | PN ---
PROGRESS NOTE Michael is a 74-year-old gentleman who is admitted to hospital with syncope secondary to acute pulmonary embolism, currently on oral anticoagulant. He was on the floor last night, developed worsening confusion due to which he is sent to the ICU, had a CT scan of the brain that did not reveal any intracranial bleed and CT scan of the chest did not show any new changes. On exam, he is comfortable at rest. Heart rate is 70 beats per minute. Blood pressure is 94/70. Respiratory 15. There is no jugular venous distention. Chest exam reveals diminished air entry at the bases. Heart exam reveals first and second heart sounds. No gallop. Has a systolic murmur at the left lower sternal border. Abdomen is soft. Exam of extremities did not reveal any edema. Labs show that the hemoglobin is 13.5, platelet count is 219, potassium is 4.5. Creatinine is 0.87. ASSESSMENT: 1. Syncope secondary to acute pulmonary embolism. 2. Altered mental status, exact etiology is unclear. PLAN: Continue the patient on the oral anticoagulants. MMODL / IJN: [id number] /
--- NOTE | 2019-09-04 12:32 | P.PN ---
Subjective Progress Note Date: 09/04/19 Principal diagnosis: syncopy In f/u today pt denies any pain, no eye pain or vision loss in the left eye. Has productive cough with thick clear mucus, mild oral irritation, no bleeding. Objective - Vital Signs Vital signs: Vital Signs Temp 98.5 F 09/03/19 20:00 Pulse 70 09/04/19 11:00 Resp 15 09/04/19 11:00 BP 94/71 09/04/19 11:00 Pulse Ox 94 L 09/04/19 11:00 Intake & Output 09/03/19 09/04/19 09/04/19 18:59 06:59 18:59 Intake Total 510 140 160 Output Total 565 210 Balance 510 -425 -50 Weight 115 kg 115 kg Intake: IV 260 140 160 Piperacillin-Tazobactam 3 100 75 .375 gm In Sodium Chloride 0.9% 100 ml @ 25 mls/hr IVPB Q8HR [facility] Rx# :[id number] Sodium Chloride 0.9% 1, 20 40 10 000 ml @ 20 mls/hr IV . Q24H [facility] Rx#:[id number] Sodium Chloride 0.9% 1, 75 000 ml @ 75 mls/hr IV . [id number] [facility] Rx#:[id number] tube feed 240 Tube Feeding 250 Output: Urine 565 210 Other: Voiding Method Urinal Indwelling Catheter Indwelling Catheter # Voids 3 - Constitutional General appearance: Present: cooperative, no acute distress, obese - EENT EENT Comment(s): lt orbit hematoma from trauma, small scleral hemorrhage Eyes: Present: anicteric sclerae, EOMI - Neck Details: Skin changes c/w radiation - Respiratory Respiratory: bilateral: rhonchi (anterior) - Cardiovascular Rhythm: regular Heart sounds: normal: S1, S2 - Peripheral edema leg Peripheral Edema: bilateral: Trace - Gastrointestinal General gastrointestinal: Present: normal bowel sounds, soft - Neurologic Neurologic: Present: CNII-XII intact - Musculoskeletal Musculoskeletal: Present: generalized weakness - Psychiatric Psychiatric: Present: A&O x's 3, appropriate affect - Labs CBC & Chem 7: 09/04/19 04:33 09/04/19 04:33 Labs: Abnormal Lab Results - Last 24 Hours (Table) 09/03/19 09/03/19 09/03/19 Range/Units 15:59 15:59 17:39 RBC (4.30-5.90) m/uL Lymphocytes # 0.9 L (1.0-4.8) k/uL ABG pH 7.57 H* (7.35-7.45) ABG pCO2 28 L (35-45) mmHg ABG pO2 72 L (83-108) mmHg ABG HCO3 26 H (21-25) mmol/L ABG Total CO2 27 H (19-24) mmol/L Sodium 130 L (137-145) mmol/L Chloride 96 L (98-107) mmol/L BUN (9-20) mg/dL Glucose 116 H (74-99) mg/dL POC Glucose (mg/dL) (75-99) mg/dL Calcium 8.3 L (8.4-10.2) mg/dL Total Protein (6.3-8.2) g/dL Albumin (3.5-5.0) g/dL Ur Specific [place] (1.001-1.035) Urine Blood (Negative) Urine RBC (0-5) /hpf 09/03/19 09/03/19 09/04/19 Range/Units 18:44 22:00 04:33 RBC 4.28 L (4.30-5.90) m/uL Lymphocytes # 0.8 L (1.0-4.8) k/uL ABG pH (7.35-7.45) ABG pCO2 (35-45) mmHg ABG pO2 (83-108) mmHg ABG HCO3 (21-25) mmol/L ABG Total CO2 (19-24) mmol/L Sodium (137-145) mmol/L Chloride (98-107) mmol/L BUN (9-20) mg/dL Glucose (74-99) mg/dL POC Glucose (mg/dL) 106 H (75-99) mg/dL Calcium (8.4-10.2) mg/dL Total Protein (6.3-8.2) g/dL Albumin (3.5-5.0) g/dL Ur Specific [place] 1.038 H (1.001-1.035) Urine Blood Small H (Negative) Urine RBC 10 H (0-5) /hpf 09/04/19 Range/Units 04:33 RBC (4.30-5.90) m/uL Lymphocytes # (1.0-4.8) k/uL ABG pH (7.35-7.45) ABG pCO2 (35-45) mmHg ABG pO2 (83-108) mmHg ABG HCO3 (21-25) mmol/L ABG Total CO2 (19-24) mmol/L Sodium 130 L (137-145) mmol/L Chloride (98-107) mmol/L BUN 22 H (9-20) mg/dL Glucose 119 H (74-99) mg/dL POC Glucose (mg/dL) (75-99) mg/dL Calcium (8.4-10.2) mg/dL Total Protein 5.6 L (6.3-8.2) g/dL Albumin 2.8 L (3.5-5.0) g/dL Ur Specific [place] (1.001-1.035) Urine Blood (Negative) Urine RBC (0-5) /hpf Microbiology - Last 24 Hours (Table) 08/29/19 16:45 Blood Culture - Preliminary Blood No Growth after 120 hours - Imaging and Cardiology CT scan - chest: report reviewed MRI - head: report reviewed (No metastases) Assessment and Plan (1) Syncope and collapse Narrative/Plan: [place] to be multifactorial including PE, dehydration, tachycardia. He has been hydrated. BP fluctuating. No orthostatic BPs performed as pt has not been stable enough. ? effects of treatment on carotids. Current Visit: Yes Status: Acute Priority: High Code(s): R55 - SYNCOPE AND COLLAPSE SNOMED Code(s): 384796587 (2) Pulmonary embolism, bilateral Narrative/Plan: Heparin drip. Discussed with CM, preferred eliquis (xarelto requires large meal, not sure if pt capable). Pt still has to meet prescription deductible. The is aware of this. They are aware of the initial high cost of anticoagulation Rx. Current Visit: Yes Status: Acute Priority: High Code(s): I26.99 - OTHER PULMONARY EMBOLISM WITHOUT ACUTE COR PULMONALE SNOMED Code(s): 55861527 (3) Head and neck cancer Narrative/Plan: Patient currently is in treatment. Case discussed with Jet Handler and RN. There is concern about clear understanding of prognosis, intention of treatment and patient wishes. We are planning a family meeting for tomorrow morning. I will review the case with the primary Oncologist and Radiation Oncologist. We will discuss his case, answer all of their questions and proceed with a plan based on patient's wishes. Current Visit: Yes Status: Chronic Priority: Medium Code(s): C76.0 - MALIGNANT NEOPLASM OF HEAD, FACE AND NECK SNOMED Code(s): 919610318 Plan: Due to altered mental status patient was returned to the intensive care unit. MRI of the brain did not show any acute abnormalities. CT of the chest did not show any new PE. There is a 4.5 cm right renal mass. This will require further investigation if, there are plans to proceed with treatment of cancer. Time with Patient: Greater than 30 (Counseling and coordinating care)
--- NOTE | 2019-09-04 13:30 | CDI ---
Documentation Clarification Form Date: 09/04/2019 01:12:47 PM From: Trista Barbosa RN, CCDS Admit Date: 08/29/2019 10:56:00 AM Patient Name: Michael Cintron Visit Number: [id number] ATTENTION: The Clinical Documentation Specialists (CDI) and [facility] Coding Staff appreciate your assistance in clarifying documentation. Please respond to the clarification below the line at the bottom and electronically sign. The CDI & [facility] Coding staff will review the response and follow-up if needed. Please note: Queries are made part of the Legal Health Record. If you have any questions, please contact the author of this message via ITS. Dr. Roge Wei Altered Mental Status was documented in the 09/03 Cardiology progress note and 09/03 Oncology progress note and requires further specificity. History/Risk Factors: Head and neck cancer, Bilateral PE, bradycardia, [place], [place] Clinical Indicators: 09/03 Oncology Progress Note: " Due to altered mental status patient was returned to the intensive care unit." 09/03 Cardiology Progress Note: "Altered mental status, exact etiology is unclear. His blood gases yesterday show respiratory alkalosis probably secondary to hyperventilation. " 08/30 & 08/31 Pulmonary Progress Note: "Overnight he became slightly confused." 09/03 Labs: NA+ 130 09/02 MRI Brain w/o: "Cerebral atrophy and chronic small vessel ischemia. No acute intracranial abnormality. No change." 09/02 CTA Chest: "Patchy bilateral pulmonary infiltrates and atelectasis in the lower lobes. Cardiomegaly. Pulmonary abnormality increased compared to recent exam. Mild thoracic aortic aneurysm. Left lower lobe pulmonary embolism. I see no evidence of a new embolism compared to recent CT scan. Right renal mass suspicious for tumor." Treatment: Patient transferred to ICU Aricept 10 mg PO HS Zosyn 3.375 gm IVPB Q 8 hrs 0.9% NS @ 75 cc/hr PO [place] D/C 09/02 In your professional opinion, please clarify the etiology of the Altered Mental Status, if known. Metabolic Encephalopathy (please Specify underlying illness if known) Delirium (specify cause): Other condition (please specify) Unable to determine (Last Revision: June 2017) metabolic encephalopathy (pulmonary embolism) MTDD
[2019-09-04] MEDS: MAG HYDROX/AL HYDROX/SIMETH 30 ML, LIDOCAINE VISCOUS 30 ML, diphenhydrAMINE ELIXIR 75 M... PO SCH ×12 (13:53→21:20)
--- NOTE | 2019-09-04 14:49 | P.PN ---
Subjective Progress Note Date: 09/04/19 Principal diagnosis: Acute bilateral pulmonary embolism Patient was evaluated today on 09/04/19, patient seems to be doing fairly well, in no acute distress, intermittent episodes of confusion, remains on Xarelto for his pulmonary embolism. Hemoglobin is stable. Continues to have ecchymosis of the left periorbital area. Patient is on enteral feeding via PEG tube. 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 No major issues overnight. IV fluid is at 10 L/m, he is on 3 L nasal cannula with O2 sats from 95%. Intermittent episodes of lethargy and tachycardia noted. Otherwise no major issues over the last 24 hours. His CODE STATUS has been changed to DO NOT RESUSCITATE. I will discontinue his [place] because of his mental status. I would also recommend starting enteral feeding, and Neosporin to be applied around the PEG tube area. IV fluid will be increased to 75 mL per hour Objective - Vital Signs Vital signs: Vital Signs Temp 97.6 F 09/04/19 12:00 Pulse 75 09/04/19 13:00 Resp 16 09/04/19 13:00 BP 87/67 09/04/19 13:00 Pulse Ox 95 09/04/19 13:00 Intake & Output 09/03/19 09/04/19 09/04/19 18:59 06:59 18:59 Intake Total 510 140 385 Output Total 565 275 Balance 510 -425 110 Weight 115 kg 115 kg Intake: IV 260 140 335 Piperacillin-Tazobactam 3 100 100 .375 gm In Sodium Chloride 0.9% 100 ml @ 25 mls/hr IVPB Q8HR [facility] Rx# :[id number] Sodium Chloride 0.9% 1, 20 40 10 000 ml @ 20 mls/hr IV . Q24H [facility] Rx#:[id number] Sodium Chloride 0.9% 1, 225 000 ml @ 75 mls/hr IV . [id number] [facility] Rx#:[id number] tube feed 240 Tube Feeding 250 50 Output: Urine 565 275 Other: Voiding Method Urinal Indwelling Catheter Indwelling Catheter # Voids 3 - Exam GENERAL EXAM: Revealed 74-year-old white male in no distress. Significant periorbital ecchymosis noted. HEAD: Normocephalic/atraumatic. EYES: Normal reaction of pupils, equal size. Conjunctiva pink, sclera white. Periorbital ecchymosis on the left side as noted. CHEST: No chest wall deformity. Symmetrical expansion. LUNGS: Equal air entry with no crackles, wheeze, rhonchi or dullness. CVS: Regular rate and rhythm, normal S1 and S2, no gallops, no murmurs, no rubs ABDOMEN: Soft, nontender. No hepatosplenomegaly, normal bowel sounds, no guarding or rigidity. PEG tube in place with the tube feedings, purulent discharge noted around the PEG tube. EXTREMITIES: No clubbing, no edema, no cyanosis, 2+ pulses and upper and lower extremities. MUSCULOSKELETAL: Muscle strength and tone normal. SPINE: No scoliosis or deformity SKIN: No rashes, abrasion over his right upper shoulder area, radiation changes over the right neck/cervical area CENTRAL NERVOUS SYSTEM: Alert and oriented 2. PSYCHIATRIC: Alert and oriented 2 follows simple instructions. Poor mental status. - Labs CBC & Chem 7: 09/04/19 04:33 09/04/19 04:33 Labs: Abnormal Lab Results - Last 24 Hours (Table) 09/03/19 09/03/19 09/03/19 Range/Units 15:59 15:59 17:39 RBC (4.30-5.90) m/uL Lymphocytes # 0.9 L (1.0-4.8) k/uL ABG pH 7.57 H* (7.35-7.45) ABG pCO2 28 L (35-45) mmHg ABG pO2 72 L (83-108) mmHg ABG HCO3 26 H (21-25) mmol/L ABG Total CO2 27 H (19-24) mmol/L Sodium 130 L (137-145) mmol/L Chloride 96 L (98-107) mmol/L BUN (9-20) mg/dL Glucose 116 H (74-99) mg/dL POC Glucose (mg/dL) (75-99) mg/dL Calcium 8.3 L (8.4-10.2) mg/dL Total Protein (6.3-8.2) g/dL Albumin (3.5-5.0) g/dL Ur Specific [place] (1.001-1.035) Urine Blood (Negative) Urine RBC (0-5) /hpf 09/03/19 09/03/1920 Range/Units 18:44 22:00 04:33 RBC 4.28 L (4.30-5.90) m/uL Lymphocytes # 0.8 L (1.0-4.8) k/uL ABG pH (7.35-7.45) ABG pCO2 (35-45) mmHg ABG pO2 (83-108) mmHg ABG HCO3 (21-25) mmol/L ABG Total CO2 (19-24) mmol/L Sodium (137-145) mmol/L Chloride (98-107) mmol/L BUN (9-20) mg/dL Glucose (74-99) mg/dL POC Glucose (mg/dL) 106 H (75-99) mg/dL Calcium (8.4-10.2) mg/dL Total Protein (6.3-8.2) g/dL Albumin (3.5-5.0) g/dL Ur Specific [place] 1.038 H (1.001-1.035) Urine Blood Small H (Negative) Urine RBC 10 H (0-5) /hpf 09/04/19 Range/Units 04:33 RBC (4.30-5.90) m/uL Lymphocytes # (1.0-4.8) k/uL ABG pH (7.35-7.45) ABG pCO2 (35-45) mmHg ABG pO2 (83-108) mmHg ABG HCO3 (21-25) mmol/L ABG Total CO2 (19-24) mmol/L Sodium 130 L (137-145) mmol/L Chloride (98-107) mmol/L BUN 22 H (9-20) mg/dL Glucose 119 H (74-99) mg/dL POC Glucose (mg/dL) (75-99) mg/dL Calcium (8.4-10.2) mg/dL Total Protein 5.6 L (6.3-8.2) g/dL Albumin 2.8 L (3.5-5.0) g/dL Ur Specific [place] (1.001-1.035) Urine Blood (Negative) Urine RBC (0-5) /hpf Microbiology - Last 24 Hours (Table) 08/29/19 16:45 Blood Culture - Preliminary Blood No Growth after 120 hours Assessment and Plan Assessment: Impression: Acute bilateral pulmonary embolism, patient was transitioned to Xarelto. presyncope pulmonary embolism History of tonsillar cancer Coronary artery disease and remote stenting of LAD Benign essential hypertension Obstructive sleep apnea syndrome, on CPAP Left orbital ecchymosis, seen by ophthalmology. Intermittent episodes of mental status change, exact etiology is not clear, possible metabolic encephalopathy Recommendation: Continue present treatment plan. Continue Xarelto. Titrate FiO2 as tolerated keep O2 saturation above 90%. Continue aspiration precautions. Continue enteral feeding via PEG tube. Consider transferring the patient out of the ICU in the next 24 hours. We will continue to follow. Time with Patient: Less than 30
--- NOTE | 2019-09-04 17:26 | P.PN ---
Subjective Progress Note Date: 09/04/19 Michael Cintron is a 74-year-old male who was having any radiation oncology visit for tonsillar cancer, when he felt dizzy and lightheaded, MATTHIAS YAÑEZ was called, however patient was found to to be conscious with evidence of bradycardia, patient was complaining of shortness of breath but no chest pain, he had the bruise around the left eye which patient states is new, patient also has laceration around the shoulders and the right pretibial area, he was brought into emergency room and was evaluated, computed tomography scan angiogram of the lungs revealed evidence of bilateral pulmonary embolism, he was started on IV heparin and was admitted to intensive care unit. Patient has a known history of coronary artery disease with stent placement in 2005, he also has a recent diagnosis of tonsillar cancer diagnosed 2 months ago. Patient was seen and examined in intensive care unit he is alert and oriented 3 in no apparent distress, he denies any symptoms at this time, there is no fever or chills no headache or dizziness no chest pain, currently he has no shortness of breath he is maintained on oxygen via nasal cannula at 2 L/m, there is no cough no nausea or vomiting no abdominal pain no diarrhea no blood in the stools no burning was urination no frequency or urgency and no hematuria. Patient recently had PEG tube placed. On 08/31/2019 patient was seen and examined on the telemetry floor he is alert and oriented in no distress, hematoma around the left eye more pronounced. platelet count improving, patient denies any chest pain or shortness of breath. On 09/01/2019 patient was seen and examined on the medical floor, he is alert and oriented 3 in no apparent distress he denies any complaints at this time there is no fever or chills no headache or dizziness no chest pain no shortness of breath no cough no nausea or vomiting no abdominal pain no diarrhea no burning with urination no frequency or urgency and no hematuria hematoma around the left eye is stable since yesterday patient is maintained on PEG tube feeding swallow evaluation was scheduled for today to assess if patient can have any oral food . On 09/02/2019 patient was seen and examined on the medical floor he is more alert and oriented today he is sitting on the edge of the bed is maintained on oxygen via nasal cannula there is no fever or chills no headache or dizziness no chest pain no shortness of breath no cough no nausea or vomiting no abdominal pain no diarrhea no burning with urination no frequency or urgency no hematuria, hematoma around the left eye is stable, patient was started on Xarelto On 09/03/2019 patient was seen and examined on the medical floor he is alert and oriented in no apparent distress he is complaining of generalized weakness otherwise he denies any complaints bruise around the left eye is stable there is no fever or chills no headache or dizziness no chest pain no shortness of breath no cough no nausea or vomiting no abdominal pain no diarrhea no burning with urination no frequency or urgency and no hematuria On 09/04/2019 patient was seen and examined in the ICU he is alert responsive in no apparent distress, yesterday after known history of having worsening confu sharita and shortness of breath repeat computed tomography scan of the chest did not reveal any evidence of any new pulmonary embolism computed tomography scan revealed evidence of patchy infiltrates in both lungs Zosyn was added to his regimen he was transferred to intensive care unit for better monitoring. Objective - Vital Signs Vital signs: Vital Signs Temp 97.6 F 09/04/19 16:00 Pulse 73 09/04/19 17:00 Resp 22 09/04/19 17:00 BP 100/71 09/04/19 17:00 Pulse Ox 96 09/04/19 17:00 Intake & Output 09/03/19 09/04/19 09/04/19 18:59 06:59 18:59 Intake Total 465 152 9689 Output Total 565 415 Balance 510 -425 670 Weight 115 kg 115 kg Intake: IV 260 140 685 Piperacillin-Tazobactam 3 100 150 .375 gm In Sodium Chloride 0.9% 100 ml @ 25 mls/hr IVPB Q8HR [facility] Rx# :[id number] Sodium Chloride 0.9% 1, 20 40 10 000 ml @ 20 mls/hr IV . Q24H [facility] Rx#:[id number] Sodium Chloride 0.9% 1, 525 000 ml @ 75 mls/hr IV . [id number] [facility] Rx#:[id number] tube feed 240 Oral 120 Tube Feeding 250 250 Other 30 Output: Urine 565 415 Other: Voiding Method Urinal Indwelling Catheter Indwelling Catheter # Voids 3 - Exam In general patient is alert and oriented 3 in no apparent distress HEENT head normocephalic there is a bruise with hematoma around the left eye, which is worse than yesterday Neck is supple no JVD no goiter no lymphadenopathy Chest exam reveals a scattered crackles bilaterally no wheezing Cardiac exam reveals regular heart sounds no gallops no murmurs Abdomen is soft nontender no organomegaly with normal bowel sounds Extremity exam reveals the right lower extremity larger than the left with edema his laceration in the right pretibial area Neurological examination reveals no gross focal deficit - Labs CBC & Chem 7: 09/04/19 04:33 09/04/19 04:33 Labs: Abnormal Lab Results - Last 24 Hours (Table) 09/03/19 09/03/19 09/03/19 Range/Units 17:39 18:44 22:00 RBC (4.30-5.90) m/uL Lymphocytes # (1.0-4.8) k/uL ABG pH 7.57 H* (7.35-7.45) ABG pCO2 28 L (35-45) mmHg ABG pO2 72 L (83-108) mmHg ABG HCO3 26 H (21-25) mmol/L ABG Total CO2 27 H (19-24) mmol/L Sodium (137-145) mmol/L BUN (9-20) mg/dL Glucose (74-99) mg/dL POC Glucose (mg/dL) 106 H (75-99) mg/dL Total Protein (6.3-8.2) g/dL Albumin (3.5-5.0) g/dL Ur Specific [place] 1.038 H (1.001-1.035) Urine Blood Small H (Negative) Urine RBC 10 H (0-5) /hpf 09/04/19 09/04/19 Range/Units 04:33 04:33 RBC 4.28 L (4.30-5.90) m/uL Lymphocytes # 0.8 L (1.0-4.8) k/uL ABG pH (7.35-7.45) ABG pCO2 (35-45) mmHg ABG pO2 (83-108) mmHg ABG HCO3 (21-25) mmol/L ABG Total CO2 (19-24) mmol/L Sodium 130 L (137-145) mmol/L BUN 22 H (9-20) mg/dL Glucose 119 H (74-99) mg/dL POC Glucose (mg/dL) (75-99) mg/dL Total Protein 5.6 L (6.3-8.2) g/dL Albumin 2.8 L (3.5-5.0) g/dL Ur Specific [place] (1.001-1.035) Urine Blood (Negative) Urine RBC (0-5) /hpf Microbiology - Last 24 Hours (Table) 09/04/19 10:10 Anaerobic Culture - Preliminary Abdomen 09/04/19 10:10 Wound Culture - Preliminary Abdomen 08/29/19 16:45 Blood Culture - Preliminary Blood No Growth after 120 hours Assessment and Plan Plan: 1. Acute bilateral pulmonary embolism, started on IV heparin in the emergency room. Right lower extremity DVT 2. Dizziness and presyncope with fall and head trauma with a hematoma around the left eye 3. 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 4. Mild elevation in troponin level likely related to pulmonary embolism 5. Underlying history of coronary artery disease with remote history of a ngioplasty and stent placement 6. Recent placement of PEG tube for feeding 7. Underlying history of hypertension 8. Underlying history of hyperlipidemia 9. Underlying history of obstructive sleep apnea maintained on CPAP at home. 10. Thrombocytopenia worse today, platelet down to 81, hematology consult requested, if platelet count continues to decrease patient may need to have a [place] filter and be off IV heparin. At this time patient is admitted to intensive care unit he was started on IV heparin cardiology and pulmonary consultation were requested Home medication reviewed, and reorder Oncology consultation added Will follow closely
[2019-09-04] MEDS: MULTIVITAMINS, THERA 1 EACH TAB PO SCH (21:17)
[2019-09-04] MEDS: risperiDONE 0.5 MG TAB PO SCH (21:18)
[2019-09-04] MEDS: PRAMIPEXOLE 1 MG TAB PO SCH (21:18)
[2019-09-04] MEDS: METOPROLOL TARTRATE 12.5 MG TAB PO SCH (21:18)
[2019-09-04] MEDS: ASPIRIN 81 MG PO SCH (21:18)
[2019-09-04] MEDS: ATORVASTATIN 20 MG TAB PO SCH (21:18)
[2019-09-04] MEDS: SERTRALINE 50 MG TAB PO SCH (23:28)
[2019-09-04] MEDS: DONEPEZIL 10 MG TAB PO SCH (23:28)
[2019-09-05] MEDS: PIPERACILLIN-TAZOBACTAM 3.375 GM in SODIUM CHLORIDE 0.9% 100 ML IVPB SCH ×4 (00:19→23:42)
[2019-09-05 05:47] LABS: Basophils % (A) 0 %; Eosinophils % (A) 1 %; HCT 36.4 % (39.0-53.0); Lymphocytes # (A) 0.5 k/uL (1.0-4.8); Lymphocytes % (A) 13 %; MCH 31.2 pg (25.0-35.0); MCHC 33.1 g/dL (31.0-37.0); MCV 94.2 fL (80.0-100.0); Mean Platelet Volume 6.9; Monocytes # (A) 0.3 k/uL (0-1.0); Monocytes % (A) 8 %; Neutrophils % (A) 75 %; Platelet Count 212 k/uL (150-450); RBC 3.86 m/uL (4.30-5.90); RDW 15.1 % (11.5-15.5)
[2019-09-05 06:00] LABS: ALT 34 U/L (4-49); AST 33 U/L (17-59); African American GFR (CKD) >90 (>60 ml/min/1.73 sqM); Albumin 2.4 g/dL (3.5-5.0); Alkaline Phosphatase 73 U/L (38-126); Anion Gap 7 mmol/L; Blood Urea Nitrogen 24 mg/dL (9-20); Calcium 7.8 mg/dL (8.4-10.2); Carbon Dioxide 25 mmol/L (22-30); Chloride 102 mmol/L (98-107); Glucose 95 mg/dL (74-99); Non-African American GFR(CKD) 87 (>60 ml/min/1.73 sqM); Potassium 4.1 mmol/L (3.5-5.1); Sodium 134 mmol/L (137-145); Total Bilirubin 0.7 mg/dL (0.2-1.3); Total Protein 5.1 g/dL (6.3-8.2)
[2019-09-05] MEDS: RIVAROXABAN 15 MG TAB PO SCH ×2 (07:57→16:56)
[2019-09-05] MEDS: PANTOPRAZOLE 40 MG/10 ML VIAL IV SCH (08:27)
[2019-09-05] MEDS: NEOMYCIN-BACITRACIN-POLY OINT 14 GM TUBE TOPICAL SCH (08:38)
[2019-09-05] MEDS: LIDOCAINE VISCOUS 2% 15 ML CUP MUCOUS MEM SCH ×4 (09:39→21:04)
[2019-09-05] MEDS: MAG HYDROX/AL HYDROX/SIMETH 30 ML, LIDOCAINE VISCOUS 30 ML, diphenhydrAMINE ELIXIR 75 M... PO SCH ×12 (09:40→21:05)
--- NOTE | 2019-09-05 10:16 | XR ---
EXAMINATION TYPE: XR chest 1V DATE OF EXAM: 09/05/2019 COMPARISON: Prior chest x-ray 09/04/2019 HISTORY: Shortness of breath, abnormal chest x-ray TECHNIQUE: Single frontal view of the chest is obtained. FINDINGS: Lung volumes are low and the patient is rotated. There are overlying cardiac leads. Stoppe d changes noted to the left shoulder. There is no evident pneumothorax or sizable effusion. Heart siz e is likely stable. Aorta is dense. Prominence of the pulmonary artery could be due to pulmonary neetu ry hypertension. There is some improved aeration at the lung bases. IMPRESSION: Improved aeration, expiratory rotated exam
[2019-09-05] MEDS: SODIUM CHLORIDE 0.9% 1,000 ML IV SCH (11:34)
--- NOTE | 2019-09-05 13:11 | P.CONS ---
History of Present Illness - Chief Complaint medical debility - History of Present Illness I had the opportunity see patient for inpatient rehab consultation with regard to medical debility. He is admitted to [facility] August [address] Gauthier for metastatic squamous cell cancer. Patient reports fall with injuries to left orbit and skull as well as pain in the back of the head, right shoulder and elsewhere. Was seen by Dr. Naranjo status post CODE BLUE notes bilateral PE. Head CT demonstrates atrophy. Chest x-ray followed for atelectasis versus infiltrates at bases. Chest CT demonstrates left lower lobe PE. PT reports supervision functional mobility and gait 10 feet with roller walker. Speech therapy for swallowing within functional limits. OT prescribed. Previous functional history as elicited patient: 75-year-old right-handed white male who is lives and one for home with . Both are retired. does the cooking and laundry patient reports that they both to the driving. Patient independent with standing shower and gait without device. PMD Dr. Villegas. Has a history of smoking and drinking but quit both many years ago. This functional history may in fact be questioned in have to be verified. Family history of sister was a smoker. Review of Systems Review of systems: ENT: bruising left cranium with discomfort in postoperative but. Eyes: bruising left orbit. Cardiac: Denies chest pain or palpitation. Pulmonary: Denies cough or shortness of breath. Gastrointestinal: Denies nausea, emesis, constipation, diarrhea. Genitourinary: Denies discharge or frequency. Musculoskeletal: discomfort right shoulder. Neurologic: Denies motor or sensory change. Endocrine: Denies shakes or sweats. Oncology: Denies cancers. Dermatologic: Denies rash, itching, pruritus. ALLERGY/immunology: Denies sneezes, rashes. Past Medical History Past Medical History: Coronary Artery Disease (CAD), Cancer, Chest Pain / Angina, Eye Disorder, Hearing Disorder / Deafness, Hyperlipidemia, Hypertension, Osteoarthritis (OA), Sleep Apnea/CPAP/BIPAP Additional Past Medical History / Comment(s): Tonsillar cancer, coronary artery disease, hypertension, hyperlipidemia, osteoarthritis, obstructive sleep apnea, skin cancer, cataracts. 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 CATARACT RIGHT EYE-WITH LENS IMPLANT Past Anesthesia/Blood Transfusion Reactions: No Reported Reaction Date of Last Stent Placement:: 2006 Smoking Status: Former smoker - Past Family History Mother Family Medical History: No Reported History Medications and Allergies Home Medications Medication Instructions Recorded Confirmed Type Donepezil [Aricept] 10 mg PO HS 01/16/14 08/29/19 History Multivitamins, Thera [Multivitamin] 1 tab PO HS 01/16/14 08/29/19 History Aspirin [Adult Low Dose Aspirin EC] 81 mg PO HS 11/12/17 08/29/19 History Atorvastatin [Lipitor] 20 mg PO HS 11/12/17 08/29/19 History Metoprolol Tartrate [Lopressor] 12.5 mg PO HS 11/12/17 08/29/19 History Sertraline [Zoloft] 50 mg PO HS 11/12/17 08/29/19 History Pramipexole Di-HCl [Mirapex] 1 mg PO HS 11/29/18 08/29/19 History Aprepitant [Emend] 80 mg PO DIRECTED 08/29/19 08/29/19 History Dexamethasone 8 mg PO DIRECTED 08/29/19 08/29/19 History Fluconazole [Diflucan] 100 mg PO DAILY PRN 08/29/19 08/29/19 History Hydrocodone/Acetaminophen [Redkey 1 tab PO Q8H PRN 08/29/19 08/29/19 History 5-325] Lidocaine Viscous 2% [Xylocaine 10 ml MUCOUS MEM ACHS 08/29/19 08/29/19 History Viscous] Omeprazole [PriLOSEC] 20 mg PO HS 08/29/19 08/29/19 History Ondansetron HCl [Zofran] 8 mg PO Q8H PRN 08/29/19 08/29/19 History SILVER sulfADIAZINE Cream 1 applic TOPICAL BID 08/29/19 08/29/19 History [Silvadene 1% Cream] risperiDONE 0.5 mg PO HS 08/29/19 08/29/19 History Rivaroxaban [Xarelto Starter Pack] 0 mg PO DIRECTED 30 Days #1 pack 09/01/19 Rx Allergies Allergy/AdvReac Type Severity Reaction Status Date / Time No Known Allergies Allergy Verified 08/29/19 11:06 Physical Exam Vitals: Vital Signs Temp Pulse Resp BP Pulse Ox 09/05/19 08:00 97.9 F 64 17 98/60 97 09/05/19 07:00 64 18 101/62 97 09/05/19 06:00 67 17 111/68 96 09/05/19 05:00 73 13 101/63 96 09/05/19 04:00 97.5 F L 64 17 92/59 96 09/05/19 03:00 61 14 94/62 96 09/05/19 02:00 61 16 95/63 97 09/05/19 01:00 61 15 101/62 97 09/05/19 00:00 98 F 62 16 90/63 97 09/04/19 23:00 67 15 100/63 98 09/04/19 22:00 70 18 109/62 99 09/04/19 21:00 80 14 100/75 96 09/04/19 20:00 98 F 80 18 106/84 92 L 09/04/19 19:00 81 23 119/63 99 09/04/19 18:00 92 25 H 97/77 97 09/04/19 17:00 73 22 100/71 96 09/04/19 16:00 97.6 F 73 19 98/71 94 L 09/04/19 15:00 77 15 104/75 95 09/04/19 14:00 78 17 98/66 95 Intake and Output 09/04/19 09/05/19 09/05/19 22:59 06:59 14:59 Intake Total 1210 1260 505 Output Total 390 505 205 Balance 820 755 300 Intake: IV 700 700 325 Piperacillin-Tazobactam 3 100 100 100 .375 gm In Sodium Chloride 0.9% 100 ml @ 25 mls/hr IVPB Q8HR [facility] Rx# :[id number] Sodium Chloride 0.9% 1, 600 600 225 000 ml @ 75 mls/hr IV . [id number] [facility] Rx#:[id number] Tube Feeding 450 500 150 Other 60 60 30 Output: Urine 390 505 205 Other: Voiding Method Indwelling Catheter Indwelling Catheter Indwelling Catheter # Bowel Movements 1 3 Weight 115.4 kg Skin: atrophic and with bruises left orbit and cranium. General: overweight build and comfortable appearance. Head: Normocephalic, atraumatic. Eyes: Symmetric. Pupils equal round. Ears: Symmetric. Hearing within normal limits. Mouth: Clear. Neck: Supple. Carotid without bruit. Cardiac: Regular rate and rhythm. Lungs: Clear anteriorly and posteriorly. Abdomen: Soft active nontender. Extremities: Normal tone. Neurological: Mental status: Alert, cooperative, pleasant. Cranial nerves: Symmetric facial tone and trapezius. Motor: active movement and normal isolation all 4 limbs. Sensation: Intact throughout. DTRs: Symmetric and equal throughout. Mobility: patient just transferred from ICU and did not attempt to stand on my own but did note PT comments. Results CBC & Chem 7: 09/05/19 05:03 09/05/19 05:03 Labs: Abnormal Lab Results - Last 24 Hours (Table) 09/05/19 09/05/19 Range/Units 05:03 05:03 RBC 3.86 L (4.30-5.90) m/uL Hgb 12.0 L (13.0-17.5) gm/dL Hct 36.4 L (39.0-53.0) % Lymphocytes # 0.5 L (1.0-4.8) k/uL Sodium 134 L (137-145) mmol/L BUN 24 H (9-20) mg/dL Calcium 7.8 L (8.4-10.2) mg/dL Total Protein 5.1 L (6.3-8.2) g/dL Albumin 2.4 L (3.5-5.0) g/dL Microbiology - Last 24 Hours (Table) 09/04/19 10:10 Gram Stain - Preliminary Abdomen Wound Culture - Preliminary Presumptive MRSA Gram Neg Bacilli 09/03/19 20:32 Blood Culture - Preliminary Blood No Growth after 24 hours 09/03/19 20:38 Blood Culture - Preliminary Blood No Growth after 24 hours 08/29/19 16:45 Blood Culture - Final Blood No Growth after 144 hours 09/04/19 10:10 Anaerobic Culture - Preliminary Abdomen Assessment and Plan (1) Acute respiratory failure with hypoxia Current Visit: Yes Status: Acute Code(s): J96.01 - ACUTE RESPIRATORY FAILURE WITH HYPOXIA SNOMED Code(s): 38972460 (2) Pulmonary embolism, bilateral Current Visit: Yes Status: Acute Priority: High Code(s): I26.99 - OTHER PULMONARY EMBOLISM WITHOUT ACUTE COR PULMONALE SNOMED Code(s): 15883734 Plan: impression: 1. Medical debility. 2. Bilateral PE resultant acute respiratory failure. 3. Metastatic squamous cell cancer with ongoing chemotherapy. 4. Dementia. 5. Dysphagia now with PEG 6. Coronary disease with angina. 7. Sleep apnea with CPAP. 8. Hypertension. 9. Dyslipidemia. 10. Osteoarthritis. Comments and plan:PT and speech are ongoing and OT prescribed. PT reports supervision only for functional mobility and technical be too good for inpatient rehab. patient has underlying history dimension obviously shouldn't return to home alone. would have to determine if she is able to manage patient. Support services per your clinical correlation.
--- NOTE | 2019-09-05 14:01 | P.PN ---
Subjective Progress Note Date: 09/05/19 Principal diagnosis: Acute bilateral pulmonary embolism Patient was evaluated today on 09/04/19, patient seems to be doing fairly well, in no acute distress, intermittent episodes of confusion, remains on Xarelto for his pulmonary embolism. Hemoglobin is stable. Continues to have ecchymosis of the left periorbital area. Patient is on enteral feeding via PEG tube. 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 No major issues overnight. IV fluid is at 10 L/m, he is on 3 L nasal cannula with O2 sats from 95%. Intermittent episodes of lethargy and tachycardia noted. Otherwise no major issues over the last 24 hours. His CODE STATUS has been changed to DO NOT RESUSCITATE. I will discontinue his [place] because of his mental status. I would also recommend starting enteral feeding, and Neosporin to be applied around the PEG tube area. IV fluid will be increased to 75 mL per hour Patient was reevaluated today on 09/05/19, patient remains in the ICU, he is on 3 L nasal cannula, and his O2 saturation 97%. Patient has IV fluid at 75 mL per hour, he has enteral feeding via PEG tube, and overall the patient seems to be doing quite well. No major issues over the last 24 hours. Hence I plan to transfer the patient to a medical floor, and eventually will need transfer for physical therapy and rehabilitation. Pulmonary-ha, the patient has no active pulmonary symptoms. CBC is relatively normal basic metabolic profile is normal Objective - Vital Signs Vital signs: Vital Signs Temp 97.9 F 09/05/19 08:00 Pulse 64 09/05/19 08:00 Resp 17 09/05/19 08:00 BP 98/60 09/05/19 08:00 Pulse Ox 97 09/05/19 08:00 Intake & Output 09/04/19 09/05/19 09/05/19 18:59 06:59 18:59 Intake Total 1235 1865 505 Output Total 515 685 205 Balance 720 1180 300 Weight 115 kg 115.4 kg Intake: IV 785 1025 325 Piperacillin-Tazobactam 3 175 125 100 .375 gm In Sodium Chloride 0.9% 100 ml @ 25 mls/hr IVPB Q8HR [facility] Rx# :[id number] Sodium Chloride 0.9% 1, 10 000 ml @ 20 mls/hr IV . Q24H [facility] Rx#:[id number] Sodium Chloride 0.9% 1, 600 900 225 000 ml @ 75 mls/hr IV . [id number] [facility] Rx#:[id number] Oral 120 Tube Feeding 300 750 150 Other 30 90 30 Output: Urine 515 685 205 Other: Voiding Method Indwelling Catheter Indwelling Catheter Indwelling Catheter # Bowel Movements 3 - Exam GENERAL EXAM: Revealed 74-year-old white male in no distress. HEAD: Periorbital ecchymosis is noted. EYES: Normal reaction of pupils, equal size. Conjunctiva pink, sclera white. Periorbital ecchymosis on the left side as noted. CHEST: No chest wall deformity. Symmetrical expansion. LUNGS: Equal air entry with no crackles, wheeze, rhonchi or dullness. CVS: Regular rate and rhythm, normal S1 and S2, no gallops, no murmurs, no rubs ABDOMEN: Soft, nontender. No hepatosplenomegaly, normal bowel sounds, no guarding or rigidity. PEG tube in place with the tube feedings, purulent discharge noted around the PEG tube. EXTREMITIES: No clubbing, no edema, no cyanosis, 2+ pulses and upper and lower extremities. MUSCULOSKELETAL: Muscle strength and tone normal. SPINE: No scoliosis or deformity SKIN: No rashes, abrasion over his right upper shoulder area, radiation changes over the right neck/cervical area CENTRAL NERVOUS SYSTEM: Alert and oriented 3. No gross focal neurologic deficits.. PSYCHIATRIC: Normal mood affect and normal mental status examination - Labs CBC & Chem 7: 09/05/19 05:03 09/05/19 05:03 Labs: Abnormal Lab Results - Last 24 Hours (Table) 09/05/19 09/05/19 Range/Units 05:03 05:03 RBC 3.86 L (4.30-5.90) m/uL Hgb 12.0 L (13.0-17.5) gm/dL Hct 36.4 L (39.0-53.0) % Lymphocytes # 0.5 L (1.0-4.8) k/uL Sodium 134 L (137-145) mmol/L BUN 24 H (9-20) mg/dL Calcium 7.8 L (8.4-10.2) mg/dL Total Protein 5.1 L (6.3-8.2) g/dL Albumin 2.4 L (3.5-5.0) g/dL Microbiology - Last 24 Hours (Table) 09/04/19 10:10 Gram Stain - Preliminary Abdomen Wound Culture - Preliminary Presumptive MRSA Gram Neg Bacilli 09/03/19 20:32 Blood Culture - Preliminary Blood No Growth after 24 hours 09/03/19 20:38 Blood Culture - Preliminary Blood No Growth after 24 hours 08/29/19 16:45 Blood Culture - Final Blood No Growth after 144 hours 09/04/19 10:10 Anaerobic Culture - Preliminary Abdomen Assessment and Plan Assessment: Impression: Acute bilateral pulmonary embolism, presently on Xarelto.. presyncope pulmonary embolism History of tonsillar cancer Coronary artery disease and remote stenting of LAD Benign essential hypertension Obstructive sleep apnea syndrome, on CPAP Left orbital ecchymosis, seen by ophthalmology. Intermittent episodes of mental status change, exact etiology is not clear, possible metabolic encephalopathy Recommendation: Continue present treatment plan. Continue Xarelto. Titrate and possibly discontinue oxygen.. Continue aspiration precautions. Continue enteral feeding via PEG tube. Transfer patient out of the ICU to a regular medical floor. Consider referral to rehab. Time with Patient: Less than 30
--- NOTE | 2019-09-05 17:32 | P.PN ---
Subjective Progress Note Date: 09/05/19 Principal diagnosis: syncopy In follow-up today patient is a little more alert, more interactive in our conversation. His is at the bedside for a meeting. Patient denies any pain, nausea, hunger or need to go to the bathroom. Objective - Vital Signs Vital signs: Vital Signs Temp 97.5 F L 09/05/19 15:00 Pulse 69 09/05/19 15:00 Resp 20 09/05/19 15:00 BP 130/79 09/05/19 15:00 Pulse Ox 94 L 09/05/19 15:00 Intake & Output 09/04/19 09/05/19 09/05/19 18:59 06:59 18:59 Intake Total 1235 1865 505 Output Total 515 685 405 Balance 720 1180 100 Weight 115 kg 115.4 kg Intake: IV 785 1025 325 Piperacillin-Tazobactam 3 175 125 100 .375 gm In Sodium Chloride 0.9% 100 ml @ 25 mls/hr IVPB Q8HR [facility] Rx# :[id number] Sodium Chloride 0.9% 1, 10 000 ml @ 20 mls/hr IV . Q24H [facility] Rx#:[id number] Sodium Chloride 0.9% 1, 600 900 225 000 ml @ 75 mls/hr IV . [id number] [facility] Rx#:[id number] Oral 120 Tube Feeding 300 750 150 Other 30 90 30 Output: Urine 515 685 405 Other: Voiding Method Indwelling Catheter Indwelling Catheter Indwelling Catheter # Bowel Movements 3 - Constitutional General appearance: Present: average body habitus, cooperative, no acute distress - EENT EENT Comment(s): left eye hematoma secondary to trauma, stable - Respiratory Details: respirations even and unlabored, congested sounding cough - Cardiovascular Details: skin warm and dry to the touch, NSR on monitor - Gastrointestinal General gastrointestinal: Present: soft - Musculoskeletal Musculoskeletal: Present: generalized weakness - Psychiatric Psychiatric: Present: A&O x's 3, appropriate affect - Labs CBC & Chem 7: 09/05/19 05:03 09/05/19 05:03 Labs: Abnormal Lab Results - Last 24 Hours (Table) 09/05/19 09/05/19 Range/Units 05:03 05:03 RBC 3.86 L (4.30-5.90) m/uL Hgb 12.0 L (13.0-17.5) gm/dL Hct 36.4 L (39.0-53.0) % Lymphocytes # 0.5 L (1.0-4.8) k/uL Sodium 134 L (137-145) mmol/L BUN 24 H (9-20) mg/dL Calcium 7.8 L (8.4-10.2) mg/dL Total Protein 5.1 L (6.3-8.2) g/dL Albumin 2.4 L (3.5-5.0) g/dL Microbiology - Last 24 Hours (Table) 09/04/19 10:10 Gram Stain - Preliminary Abdomen Wound Culture - Preliminary Presumptive MRSA Gram Neg Bacilli 09/03/19 20:32 Blood Culture - Preliminary Blood No Growth after 24 hours 09/03/19 20:38 Blood Culture - Preliminary Blood No Growth after 24 hours 08/29/19 16:45 Blood Culture - Final Blood No Growth after 144 hours 09/04/19 10:10 Anaerobic Culture - Preliminary Abdomen Assessment and Plan (1) Syncope and collapse Narrative/Plan: [place] to be multifactorial including PE, dehydration, tachycardia. He has been hydrated. BP fluctuating. No orthostatic BPs performed as pt has not been stable enough. Current Visit: Yes Status: Acute Priority: High Code(s): R55 - SYNCOPE AND COLLAPSE SNOMED Code(s): 389847150 (2) Pulmonary embolism, bilateral Narrative/Plan: Heparin drip. Discussed with CM, preferred eliquis (xarelto requires large meal, not sure if pt capable). Pt still has to meet prescription deductible. The is aware of this. They are aware of the initial high cost of anticoagu lation Rx. Current Visit: Yes Status: Acute Priority: High Code(s): I26.99 - OTHER PULMONARY EMBOLISM WITHOUT ACUTE COR PULMONALE SNOMED Code(s): 67693444 (3) Head and neck cancer Narrative/Plan: Reviewed the case with the primary Oncologist and Radiation Oncologist. Patient disease is curable. To complete treatment and patient has a little less then 10 days of radiation and one more cycle of chemotherapy. Though not completely optimal, it is felt that the treatment that has been given could be adequate for disease control and possibly, there is a chance, that he could be cured at this stage but, they are aware that this is only a possibility. They are both aware that the cancer could start to grow again, or, show up in a new place. Pt and have decided at this time that they would prefer to stop treatment and focus on rehab. Pt most desires to walk again and to walk his granddaughter down the aisle. I agree with their plan. They do understand that close f/u with both Med Onc and Rad Onc is highly recommended, they agree and they will follow up. Recommended evaluation by Dr. Worthington to see if he qualifies for inpatient rehabilitation, if not, patient and are amenable to subacute rehabilitation at an outpatient facility. All questions answered to the best of my ability. Current Visit: Yes Status: Chronic Priority: Medium Code(s): C76.0 - MALIGNANT NEOPLASM OF HEAD, FACE AND NECK SNOMED Code(s): 962744468
--- NOTE | 2019-09-05 19:25 | P.PN ---
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 Patient has a known history of coronary artery disease with stent placement in 2005, he also has a recent diagnosis of tonsillar cancer diagnosed 2 months ago. Patient was seen and examined in intensive care unit he is alert and oriented 3 in no apparent distress, he denies any symptoms at this time, there is no fever or chills no headache or dizziness no chest pain, currently he has no shortness of breath he is maintained on oxygen via nasal cannula at 2 L/m, there is no cough no nausea or vomiting no abdominal pain no diarrhea no blood in the stools no burning was urination no frequency or urgency and no hematuria. Patient recently had PEG tube placed. On 08/31/2019 patient was seen and examined on the telemetry floor he is alert and oriented in no distress, hematoma around the left eye more pronounced. platelet count improving, patient denies any chest pain or shortness of breath. On 09/01/2019 patient was seen and examined on the medical floor, he is alert and oriented 3 in no apparent distress he denies any complaints at this time there is no fever or chills no headache or dizziness no chest pain no shortness of breath no cough no nausea or vomiting no abdominal pain no diarrhea no burning with urination no frequency or urgency and no hematuria hematoma around the left eye is stable since yesterday patient is maintained on PEG tube feeding swallow evaluation was scheduled for today to assess if patient can have any oral food . On 09/02/2019 patient was seen and examined on the medical floor he is more alert and oriented today he is sitting on the edge of the bed is maintained on oxygen via nasal cannula there is no fever or chills no headache or dizziness no chest pain no shortness of breath no cough no nausea or vomiting no abdominal pain no diarrhea no burning with urination no frequency or urgency no hematuria, hematoma around the left eye is stable, patient was started on Xarelto On 09/03/2019 patient was seen and examined on the medical floor he is alert and oriented in no apparent distress he is complaining of generalized weakness otherwise he denies any complaints bruise around the left eye is stable there is no fever or chills no headache or dizziness no chest pain no shortness of breath no cough no nausea or vomiting no abdominal pain no diarrhea no burning with urination no frequency or urgency and no hematuria On 09/04/2019 patient was seen and examined in the ICU he is alert responsive in no apparent distress, yesterday after known history of having worsening confu sharita and shortness of breath repeat computed tomography scan of the chest did not reveal any evidence of any new pulmonary embolism computed tomography scan revealed evidence of patchy infiltrates in both lungs Zosyn was added to his regimen he was transferred to intensive care unit for better monitoring. On 09/05/2019 patient was seen and examined on the medical floor he is alert and oriented 3 in no apparent distress there is no fever or chills no headache or dizziness no chest pain no shortness of breath no cough no nausea or vomiting no abdominal pain no diarrhea no burning with urination no frequency or urgency and no hematuria. Hematoma around the left eye is improving Objective - Vital Signs Vital signs: Vital Signs Temp 97.5 F L 09/05/19 15:00 Pulse 69 09/05/19 15:00 Resp 20 09/05/19 15:00 BP 130/79 09/05/19 15:00 Pulse Ox 94 L 09/05/19 15:00 Intake & Output 09/05/19 09/05/19 09/06/19 06:59 18:59 06:59 Intake Total 1865 555 Output Total 685 405 Balance 1180 150 Weight 115.4 kg Intake: IV 1025 325 Piperacillin-Tazobactam 3 125 100 .375 gm In Sodium Chloride 0.9% 100 ml @ 25 mls/hr IVPB Q8HR [facility] Rx# :[id number] Sodium Chloride 0.9% 1, 900 225 000 ml @ 75 mls/hr IV . [id number] [facility] Rx#:[id number] Tube Feeding 750 200 Other 90 30 Output: Urine 685 405 Other: Voiding Method Indwelling Catheter Indwelling Catheter # Bowel Movements 3 - Exam In general patient is alert and oriented 3 in no apparent distress HEENT head normocephalic there is a bruise with hematoma around the left eye, which is worse than yesterday Neck is supple no JVD no goiter no lymphadenopathy Chest exam reveals a scattered crackles bilaterally no wheezing Cardiac exam reveals regular heart sounds no gallops no murmurs Abdomen is soft nontender no organomegaly with normal bowel sounds Extremity exam reveals the right lower extremity larger than the left with edema his laceration in the right pretibial area Neurological examination reveals no gross focal deficit - Labs CBC & Chem 7: 09/05/19 05:03 09/05/19 05:03 Labs: Abnormal Lab Results - Last 24 Hours (Table) 09/05/19 09/05/19 Range/Units 05:03 05:03 RBC 3.86 L (4.30-5.90) m/uL Hgb 12.0 L (13.0-17.5) gm/dL Hct 36.4 L (39.0-53.0) % Lymphocytes # 0.5 L (1.0-4.8) k/uL Sodium 134 L (137-145) mmol/L BUN 24 H (9-20) mg/dL Calcium 7.8 L (8.4-10.2) mg/dL Total Protein 5.1 L (6.3-8.2) g/dL Albumin 2.4 L (3.5-5.0) g/dL Microbiology - Last 24 Hours (Table) 09/04/19 10:10 Gram Stain - Preliminary Abdomen Wound Culture - Preliminary Presumptive MRSA Gram Neg Bacilli 09/03/19 20:32 Blood Culture - Preliminary Blood No Growth after 24 hours 09/03/19 20:38 Blood Culture - Preliminary Blood No Growth after 24 hours 08/29/19 16:45 Blood Culture - Final Blood No Growth after 144 hours 09/04/19 10:10 Anaerobic Culture - Preliminary Abdomen Assessment and Plan Plan: 1. Acute bilateral pulmonary embolism, started on IV heparin in the emergency room. Right lower extremity DVT 2. Dizziness and presyncope with fall and head trauma with a hematoma around the left eye 3. 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 4. Mild elevation in troponin level likely related to pulmonary embolism 5. Underlying history of coronary artery disease with remote history of angioplasty and stent placement 6. Recent placement of PEG tube for feeding 7. Underlying history of hypertension 8. Underlying history of hyperlipidemia 9. Underlying history of obstructive sleep apnea maintained on CPAP at home. 10. Thrombocytopenia worse today, platelet down to 81, hematology consult requested, if platelet count continues to decrease patient may need to have a Marilynn filter and be off IV heparin. 11. Pneumonia likely related to aspiration maintained on Zosyn At this time patient is admitted to intensive care unit he was started on IV heparin cardiology and pulmonary consultation were requested Home medication reviewed, and reorder Oncology consultation added Will follow closely
[2019-09-05] MEDS ORDERED: BENZOCAINE/MENTHOL LOZENG 1 EACH LOZENGE MUCOUS MEM PRN (20:22)
[2019-09-05] MEDS: ATORVASTATIN 20 MG TAB PO SCH (21:03)
[2019-09-05] MEDS: DONEPEZIL 10 MG TAB PO SCH (21:03)
[2019-09-05] MEDS: ASPIRIN 81 MG PO SCH (21:03)
[2019-09-05] MEDS: METOPROLOL TARTRATE 12.5 MG TAB PO SCH (21:04)
[2019-09-05] MEDS: MULTIVITAMINS, THERA 1 EACH TAB PO SCH (21:04)
[2019-09-05] MEDS: risperiDONE 0.5 MG TAB PO SCH (21:04)
[2019-09-05] MEDS: PRAMIPEXOLE 1 MG TAB PO SCH (21:04)
[2019-09-05] MEDS: SERTRALINE 50 MG TAB PO SCH (21:04)
[2019-09-06] MEDS: SODIUM CHLORIDE 0.9% 1,000 ML IV SCH ×2 (03:22→16:17)
[2019-09-06] MEDS: PIPERACILLIN-TAZOBACTAM 3.375 GM in SODIUM CHLORIDE 0.9% 100 ML IVPB SCH ×3 (07:43→23:14)
--- NOTE | 2019-09-06 08:02 | XR ---
EXAMINATION TYPE: XR chest 1V DATE OF EXAM: 09/06/2019 COMPARISON: 09/05/2019 HISTORY: Shortness of breath TECHNIQUE: Single frontal view of the chest is obtained. FINDINGS: Bilateral subsegmental consolidation and small effusion. There is postsurgical change left shoulder with diffuse osteopenia and arthropathy of the shoulders. Hyperinflation suggests COPD. No pneumothorax. No interstitial edema IMPRESSION: Bilateral lower lobe infiltrate or atelectasis with tiny effusion stable.
[2019-09-06 08:03] LABS: African American GFR (CKD) >90 (>60 ml/min/1.73 sqM); Anion Gap 4 mmol/L; Blood Urea Nitrogen 21 mg/dL (9-20); Calcium 7.9 mg/dL (8.4-10.2); Carbon Dioxide 25 mmol/L (22-30); Chloride 107 mmol/L (98-107); Glucose 96 mg/dL (74-99); Non-African American GFR(CKD) 86 (>60 ml/min/1.73 sqM); Potassium 4.4 mmol/L (3.5-5.1); Sodium 136 mmol/L (137-145)
[2019-09-06] MEDS: PANTOPRAZOLE 40 MG/10 ML VIAL IV SCH (09:18)
[2019-09-06] MEDS: LIDOCAINE VISCOUS 2% 15 ML CUP MUCOUS MEM SCH ×4 (09:19→20:53)
[2019-09-06] MEDS: NEOMYCIN-BACITRACIN-POLY OINT 14 GM TUBE TOPICAL SCH (09:19)
[2019-09-06] MEDS: RIVAROXABAN 15 MG TAB PO SCH ×2 (09:20→17:02)
[2019-09-06] MEDS: MAG HYDROX/AL HYDROX/SIMETH 30 ML, LIDOCAINE VISCOUS 30 ML, diphenhydrAMINE ELIXIR 75 M... PO SCH ×12 (09:20→20:56)
--- NOTE | 2019-09-06 11:42 | P.PN ---
Subjective Progress Note Date: 09/06/19 Principal diagnosis: Acute bilateral pulmonary emboli, right lower extremity DVT The patient is seen today 09/06/2019 in follow-up on the regular medical floor. He is awake and alert in no acute distress. Resting comfortably in bed. He is maintaining O2 saturations in the 90s on room air. He's afebrile. Chest x-ray continues to revealed bilateral small effusions. Hyperinflation suggestive of COPD. No pneumothorax. No interstitial edema. Cultures of the drainage around the PEG tube site reveals presumptive MRSA. The patient is currently on Zosyn. Sodium 136. Potassium 4.4. Creatinine 0.85. Being nourished via PEG tube with TwoCal at 50 MLS per hour. Anticoagulated with Xarelto. Objective - Vital Signs Vital signs: Vital Signs Temp 99.6 F 09/06/19 07:30 Pulse 65 09/06/19 07:30 Resp 16 09/06/19 07:30 BP 105/70 09/06/19 07:30 Pulse Ox 94 L 09/06/19 07:30 Intake & Output 09/05/19 09/06/19 09/06/19 18:59 06:59 18:59 Intake Total 555 1910 Output Total 405 200 Balance 150 1710 Intake: IV 325 1300 Piperacillin-Tazobactam 3 100 100 .375 gm In Sodium Chloride 0.9% 100 ml @ 25 mls/hr IVPB Q8HR [facility] Rx# :[id number] Sodium Chloride 0.9% 1, 225 1200 000 ml @ 75 mls/hr IV . [id number] [facility] Rx#:[id number] Tube Feeding 200 550 Other 30 60 Output: Urine 405 200 Other: Voiding Method Indwelling Catheter Indwelling Catheter Toilet Urinal # Voids 1 1 - Exam GENERAL EXAM: Alert, very pleasant, 74-year-old white male, 3 room air, comfortable in no apparent distress. Patient has significant bruising in his left periorbital area, extraocular movements are intact HEAD: Normocephalic/atraumatic. EYES: Normal reaction of pupils, equal size. Conjunctiva pink, sclera white. NOSE: Clear with pink turbinates. THROAT: No erythema or exudates. NECK: No masses, no JVD, no thyroid enlargement, no adenopathy. CHEST: No chest wall deformity. Symmetrical expansion. LUNGS: Equal air entry with faint crackles in the posterior bases CVS: Regular rate and rhythm, normal S1 and S2, no gallops, no murmurs, no rubs ABDOMEN: Soft, nontender. No hepatosplenomegaly, normal bowel sounds, no guarding or rigidity. PEG tube in place with the tube feedings in the form of TwoCal infusing at a rate of 50 ML per hour EXTREMITIES: No clubbing, no edema, no cyanosis, 2+ pulses and upper and lower extremities. MUSCULOSKELETAL: Muscle strength and tone normal. SPINE: No scoliosis or deformity SKIN: No rashes, abrasion over his right upper shoulder area, radiation changes over the right neck/cervical area CENTRAL NERVOUS SYSTEM: No focal deficits, tone is normal in all 4 extremities. PSYCHIATRIC: Alert and oriented -3. Appropriate affect. Intact judgment and insight. - Labs CBC & Chem 7: 09/05/19 05:03 09/06/19 07:04 Labs: Abnormal Lab Results - Last 24 Hours (Table) 09/06/19 Range/Units 07:04 Sodium 136 L (137-145) mmol/L BUN 21 H (9-20) mg/dL Calcium 7.9 L (8.4-10.2) mg/dL Microbiology - Last 24 Hours (Table) 09/03/19 20:38 Blood Culture - Preliminary Blood No Growth after 48 hours 09/03/19 20:32 Blood Culture - Preliminary Blood No Growth after 48 hours 09/04/19 10:10 Gram Stain - Preliminary Abdomen Wound Culture - Preliminary Presumptive MRSA Gram Neg Bacilli Assessment and Plan Assessment: 1 acute bilateral pulmonary embolism, currently on IV heparin DVT of the right lower extremity including the popliteal and the femoral vein. No new symptoms and the patient has no chest pain or shortness of breath. Platelet counts are on the rise and the PTT is therapeutic. Initiated on Xarelto. 2 lightheadedness/presyncope, likely secondary to pulmonary embolism, with limited trauma to the left orbital area with secondary bruising and some skin abrasion. CAT scan of the brain is negative for any acute changes. CAT scan of the C-spine was negative. 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 Currently undergoing chemoradiation therapy. 4 thrombocytopenia, improving 5 abnormal troponin is likely secondary to pulmonary embolism. EKG showing sinus tachycardia with a right bundle branch block pattern 6 coronary artery disease with remote stenting of the LAD with last cardiac catheterization being in 2018 showing patent coronaries and stent 7 hypertension 8 hyperlipidemia 9 obstructive sleep apnea maintained on CPAP therapy 10 history of skin cancer 11 history of cataracts 12 enteral feeding for nutritional support via PEG tube. 13 sinus tachycardia secondary to above. Could be also a component of dehydration, and the patient as well as pulmonary embolism. The sinus tachycardia is improved and the patient cardiac rhythm is sinus. 14 left orbital ecchymosis, will involve ophthalmology 15 leukopenia 16. Delirium, overnight, recovered Plan: The patient was seen and evaluated by Dr. Mckeon Currently stable from the pulmonary standpoint Anticoagulated with Xarelto Possible MRSA draining from PEG tube site Currently on Zosyn Await final culture I, the cosigning physician, performed a history & physical examination of the patient. Lungs sounds faint crackles in the posterior bases, diminished. Maintaining good O2 saturations in the 90s on room air I discussed the assessment and plan of care with my nurse practitioner, Princess Roth. I attest to the above note as dictated by her.
--- NOTE | 2019-09-06 19:25 | P.PN ---
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 Patient has a known history of coronary artery disease with stent placement in 2005, he also has a recent diagnosis of tonsillar cancer diagnosed 2 months ago. Patient was seen and examined in intensive care unit he is alert and oriented 3 in no apparent distress, he denies any symptoms at this time, there is no fever or chills no headache or dizziness no chest pain, currently he has no shortness of breath he is maintained on oxygen via nasal cannula at 2 L/m, there is no cough no nausea or vomiting no abdominal pain no diarrhea no blood in the stools no burning was urination no frequency or urgency and no hematuria. Patient recently had PEG tube placed. On 08/31/2019 patient was seen and examined on the telemetry floor he is alert and oriented in no distress, hematoma around the left eye more pronounced. platelet count improving, patient denies any chest pain or shortness of breath. On 09/01/2019 patient was seen and examined on the medical floor, he is alert and oriented 3 in no apparent distress he denies any complaints at this time there is no fever or chills no headache or dizziness no chest pain no shortness of breath no cough no nausea or vomiting no abdominal pain no diarrhea no burning with urination no frequency or urgency and no hematuria hematoma around the left eye is stable since yesterday patient is maintained on PEG tube feeding swallow evaluation was scheduled for today to assess if patient can have any oral food . On 09/02/2019 patient was seen and examined on the medical floor he is more alert and oriented today he is sitting on the edge of the bed is maintained on oxygen via nasal cannula there is no fever or chills no headache or dizziness no chest pain no shortness of breath no cough no nausea or vomiting no abdominal pain no diarrhea no burning with urination no frequency or urgency no hematuria, hematoma around the left eye is stable, patient was started on Xarelto On 09/03/2019 patient was seen and examined on the medical floor he is alert and oriented in no apparent distress he is complaining of generalized weakness otherwise he denies any complaints bruise around the left eye is stable there is no fever or chills no headache or dizziness no chest pain no shortness of breath no cough no nausea or vomiting no abdominal pain no diarrhea no burning with urination no frequency or urgency and no hematuria On 09/04/2019 patient was seen and examined in the ICU he is alert responsive in no apparent distress, yesterday after known history of having worsening confu sharita and shortness of breath repeat computed tomography scan of the chest did not reveal any evidence of any new pulmonary embolism computed tomography scan revealed evidence of patchy infiltrates in both lungs Zosyn was added to his regimen he was transferred to intensive care unit for better monitoring. On 09/05/2019 patient was seen and examined on the medical floor he is alert and oriented 3 in no apparent distress there is no fever or chills no headache or dizziness no chest pain no shortness of breath no cough no nausea or vomiting no abdominal pain no diarrhea no burning with urination no frequency or urgency and no hematuria. Hematoma around the left eye is improving. On 09/06/2019 patient was seen and examined on the medical floor he is alert and oriented 3 in no apparent distress there is no fever or chills no headache or dizziness chest pain no shortness of breath no cough no nausea or vomiting no abdominal pain no diarrhea no burning with urination no frequency or urgency and no hematuria's time we are awaiting further culture results and recommendation for antibiotic for discharge Objective - Vital Signs Vital signs: Vital Signs Temp 97.6 F 09/06/19 15:07 Pulse 73 09/06/19 15:07 Resp 16 09/06/19 15:07 BP 102/68 09/06/19 15:07 Pulse Ox 92 L 09/06/19 15:07 Intake & Output 09/06/19 09/06/19 09/07/19 06:59 18:59 06:59 Intake Total 1910 100 Output Total 200 1 Balance 1710 99 Intake: IV 1300 Piperacillin-Tazobactam 3 100 .375 gm In Sodium Chloride 0.9% 100 ml @ 25 mls/hr IVPB Q8HR [facility] Rx# :[id number] Sodium Chloride 0.9% 1, 1200 000 ml @ 75 mls/hr IV . [id number] [facility] Rx#:[id number] Oral 100 Tube Feeding 550 Other 60 Output: Urine 200 Stool 1 Other: Voiding Method Indwelling Catheter Toilet Urinal # Voids 1 2 - Exam In general patient is alert and oriented 3 in no apparent distress HEENT head normocephalic there is a bruise with hematoma around the left eye, which is worse than yesterday Neck is supple no JVD no goiter no lymphadenopathy Chest exam reveals a scattered crackles bilaterally no wheezing Cardiac exam reveals regular heart sounds no gallops no murmurs Abdomen is soft nontender no organomegaly with normal bowel sounds Extremity exam reveals the right lower extremity larger than the left with edema his laceration in the right pretibial area Neurological examination reveals no gross focal deficit - Labs CBC & Chem 7: 09/05/19 05:03 09/06/19 07:04 Labs: Abnormal Lab Results - Last 24 Hours (Table) 09/06/19 Range/Units 07:04 Sodium 136 L (137-145) mmol/L BUN 21 H (9-20) mg/dL Calcium 7.9 L (8.4-10.2) mg/dL Microbiology - Last 24 Hours (Table) 09/04/19 10:10 Anaerobic Culture - Preliminary Abdomen 09/04/19 10:10 Gram Stain - Final Abdomen Wound Culture - Final Methicillin resist S. aureus Klebsiella pneumoniae Klebsiella oxytoca 09/03/19 20:38 Blood Culture - Preliminary Blood No Growth after 48 hours 09/03/19 20:32 Blood Culture - Preliminary Blood No Growth after 48 hours Assessment and Plan Plan: 1. Acute bilateral pulmonary embolism, started on IV heparin in the emergency room. Right lower extremity DVT 2. Dizziness and presyncope with fall and head trauma with a hematoma around the left eye 3. 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 4. Mild elevation in troponin level likely related to pulmonary embolism 5. Underlying history of coronary artery disease with remote history of angioplasty and stent placement 6. Recent placement of PEG tube for feeding 7. Underlying history of hypertension 8. Underlying history of hyperlipidemia 9. Underlying history of obstructive sleep apnea maintained on CPAP at home. 10. Thrombocytopenia worse today, platelet down to 81, hematology consult requested, if platelet count continues to decrease patient may need to have a Marilynn filter and be off IV heparin. 11. Pneumonia likely related to aspiration maintained on Zosyn At this time patient is admitted to intensive care unit he was started on IV heparin cardiology and pulmonary consultation were requested Home medication reviewed, and reorder Oncology consultation added Will follow closely
[2019-09-06] MEDS: ATORVASTATIN 20 MG TAB PO SCH (20:52)
[2019-09-06] MEDS: DONEPEZIL 10 MG TAB PO SCH (20:52)
[2019-09-06] MEDS: ASPIRIN 81 MG PO SCH (20:52)
[2019-09-06] MEDS: METOPROLOL TARTRATE 12.5 MG TAB PO SCH (20:53)
[2019-09-06] MEDS: MULTIVITAMINS, THERA 1 EACH TAB PO SCH (20:55)
[2019-09-06] MEDS: risperiDONE 0.5 MG TAB PO SCH (20:56)
[2019-09-06] MEDS: SERTRALINE 50 MG TAB PO SCH (20:56)
[2019-09-06] MEDS: PRAMIPEXOLE 1 MG TAB PO SCH (20:56)
[2019-09-07] MEDS: PIPERACILLIN-TAZOBACTAM 3.375 GM in SODIUM CHLORIDE 0.9% 100 ML IVPB SCH ×3 (07:42→23:41)
[2019-09-07] MEDS: SODIUM CHLORIDE 0.9% 1,000 ML IV SCH ×2 (07:43→17:38)
[2019-09-07] MEDS: RIVAROXABAN 15 MG TAB PO SCH ×2 (07:48→18:06)
[2019-09-07] MEDS: LIDOCAINE VISCOUS 2% 15 ML CUP MUCOUS MEM SCH ×4 (08:46→22:38)
[2019-09-07] MEDS: MAG HYDROX/AL HYDROX/SIMETH 30 ML, LIDOCAINE VISCOUS 30 ML, diphenhydrAMINE ELIXIR 75 M... PO SCH ×12 (09:32→20:34)
[2019-09-07] MEDS: PANTOPRAZOLE 40 MG/10 ML VIAL IV SCH (09:32)
[2019-09-07 10:50] VITALS: BMI 32.1
--- NOTE | 2019-09-07 12:10 | P.PN ---
Subjective Progress Note Date: 09/07/19 Principal diagnosis: Acute bilateral pulmonary emboli, right lower extremity DVT The patient is seen today 09/06/2019 in follow-up on the regular medical floor. He is awake and alert in no acute distress. Resting comfortably in bed. He is maintaining O2 saturations in the 90s on room air. He's afebrile. Chest x-ray continues to revealed bilateral small effusions. Hyperinflation suggestive of COPD. No pneumothorax. No interstitial edema. Cultures of the drainage around the PEG tube site reveals presumptive MRSA. The patient is currently on Zosyn. Sodium 136. Potassium 4.4. Creatinine 0.85. Being nourished via PEG tube with TwoCal at 50 MLS per hour. Anticoagulated with Xarelto. The patient is seen today 09/07/2019 and follow-up on the regular medical floor. Resting in bed. Awake and alert in no acute distress. Denies any worsening shortness of breath, cough or congestion. He is maintaining O2 saturations in the 90s on room air. He's afebrile. Hemodynamically stable. He continues to be nourished via his PEG tube. Wound cultures were positive for MRSA, Klebsiella pneumoniae and Klebsiella oxytoca. He remains on Zosyn. Objective - Vital Signs Vital signs: Vital Signs Temp 98.0 F 09/07/19 06:40 Pulse 68 09/07/19 06:40 Resp 18 09/07/19 06:40 BP 110/68 09/07/19 06:40 Pulse Ox 94 L 09/07/19 06:40 Intake & Output 09/06/19 09/07/19 09/07/19 18:59 06:59 18:59 Intake Total 100 Output Total 1 Balance 99 Weight 113.7 kg 113.7 kg Intake: Oral 100 Output: Stool 1 Other: Voiding Method Toilet Toilet Urinal Urinal # Voids 2 1 - Exam GENERAL EXAM: Alert, pleasant, 74-year-old male patient, room air, comfortable in no apparent distress. Patient has significant bruising in his left periorbital area, extraocular movements are intact HEAD: Normocephalic/atraumatic. EYES: Normal reaction of pupils, equal size. Conjunctiva pink, sclera white. NOSE: Clear with pink turbinates. THROAT: No erythema or exudates. NECK: No masses, no JVD, no thyroid enlargement, no adenopathy. CHEST: No chest wall deformity. Symmetrical expansion. LUNGS: Equal air entry with faint crackles in the posterior bases CVS: Regular rate and rhythm, normal S1 and S2, no gallops, no murmurs, no rubs ABDOMEN: Soft, nontender. No hepatosplenomegaly, normal bowel sounds, no guarding or rigidity. PEG tube in place with the tube feedings in the form of TwoCal infusing at a rate of 50 ML per hour EXTREMITIES: No clubbing, no edema, no cyanosis, 2+ pulses and upper and lower extremities. MUSCULOSKELETAL: Muscle strength and tone normal. SPINE: No scoliosis or deformity SKIN: No rashes, abrasion over his right upper shoulder area, radiation changes over the right neck/cervical area CENTRAL NERVOUS SYSTEM: No focal deficits, tone is normal in all 4 extremities. PSYCHIATRIC: Alert and oriented -3. Appropriate affect. Intact judgment and insight. - Labs CBC & Chem 7: 09/05/19 05:03 09/06/19 07:04 Labs: Microbiology - Last 24 Hours (Table) 09/03/19 20:32 Blood Culture - Preliminary Blood No Growth after 72 hours 09/03/19 20:38 Blood Culture - Preliminary Blood No Growth after 72 hours 09/04/19 10:10 Anaerobic Culture - Preliminary Abdomen 09/04/19 10:10 Gram Stain - Final Abdomen Wound Culture - Final Methicillin resist S. aureus Klebsiella pneumoniae Klebsiella oxytoca Assessment and Plan Assessment: 1 acute bilateral pulmonary embolism, currently on IV heparin DVT of the right lower extremity including the popliteal and the femoral vein. No new symptoms and the patient has no chest pain or shortness of breath. Initiated on Xarelto. 2 lightheadedness/presyncope, likely secondary to pulmonary embolism, with limited trauma to the left orbital area with secondary bruising and some skin abrasion. CAT scan of the brain is negative for any acute changes. CAT scan of the C-spine was negative. 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 Currently undergoing chemoradiation therapy. 4 thrombocytopenia, recovered 5 abnormal troponin is likely secondary to pulmonary embolism. EKG showing sinus tachycardia with a right bundle branch block pattern 6 coronary artery disease with remote stenting of the LAD with last cardiac catheterization being in 2018 showing patent coronaries and stent 7 hypertension 8 hyperlipidemia 9 obstructive sleep apnea maintained on CPAP therapy 10 history of skin cancer 11 history of cataracts 12 enteral feeding for nutritional support via PEG tube. 13 sinus tachycardia secondary to above. Could be also a component of dehydration, and the patient as well as pulmonary embolism. The sinus tachycardia is improved and the patient cardiac rhythm is sinus. 14 left orbital ecchymosis, will involve ophthalmology 15 leukopenia 16. Delirium, overnight, recovered Plan: The patient was seen and evaluated by Dr. Mckeon Currently stable from the pulmonary standpoint Anticoagulated with Xarelto MRSA, Klebsiella pneumoniae, Klebsiella oxytoca draining from PEG tube site Currently on Zosyn Will consult infectious disease I, the cosigning physician, performed a history & physical examination of the patient. Lungs sounds faint crackles in the posterior bases, diminished. Maintaining good O2 saturations in the 90s on room air I discussed the assessment and plan of care with my nurse practitioner, Princess Roth. I attest to the above note as dictated by her.
--- NOTE | 2019-09-07 14:54 | P.PN ---
Progress Note - Text Progress Note Date: 09/07/19 Spoke with patient today. He is alert and oriented, he is recalling recent events very well. He looks well, no distress. He is in a very good mood, Pleasant and joking. He is looking forward to rehabilitation and getting stronger. Oncology plan continues to be stop treatment, aggressive follow-up for monitoring. Patient understands this as the plan as well.
--- NOTE | 2019-09-07 18:10 | P.PN ---
Subjective Progress Note Date: 09/07/19 Michael Cintron is a 74-year-old male who was having any radiation oncology visit for tonsillar cancer, when he felt dizzy and lightheaded, MATTHIAS YAÑEZ was called, however patient was found to to be conscious with evidence of bradycardia, patient was complaining of shortness of breath but no chest pain, he had the bruise around the left eye which patient states is new, patient also has laceration around the shoulders and the right pretibial area, he was brought into emergency room and was evaluated, computed tomography scan angiogram of the lungs revealed evidence of bilateral pulmonary embolism, he was started on IV heparin and was admitted to intensive care unit. Patient has a known history of coronary artery disease with stent placement in 2005, he also has a recent diagnosis of tonsillar cancer diagnosed 2 months ago. Patient was seen and examined in intensive care unit he is alert and oriented 3 in no apparent distress, he denies any symptoms at this time, there is no fever or chills no headache or dizziness no chest pain, currently he has no shortness of breath he is maintained on oxygen via nasal cannula at 2 L/m, there is no cough no nausea or vomiting no abdominal pain no diarrhea no blood in the stools no burning was urination no frequency or urgency and no hematuria. Patient recently had PEG tube placed. On 08/31/2019 patient was seen and examined on the telemetry floor he is alert and oriented in no distress, hematoma around the left eye more pronounced. platelet count improving, patient denies any chest pain or shortness of breath. On 09/01/2019 patient was seen and examined on the medical floor, he is alert and oriented 3 in no apparent distress he denies any complaints at this time there is no fever or chills no headache or dizziness no chest pain no shortness of breath no cough no nausea or vomiting no abdominal pain no diarrhea no burning with urination no frequency or urgency and no hematuria hematoma around the left eye is stable since yesterday patient is maintained on PEG tube feeding swallow evaluation was scheduled for today to assess if patient can have any oral food . On 09/02/2019 patient was seen and examined on the medical floor he is more alert and oriented today he is sitting on the edge of the bed is maintained on oxygen via nasal cannula there is no fever or chills no headache or dizziness no chest pain no shortness of breath no cough no nausea or vomiting no abdominal pain no diarrhea no burning with urination no frequency or urgency no hematuria, hematoma around the left eye is stable, patient was started on Xarelto On 09/03/2019 patient was seen and examined on the medical floor he is alert and oriented in no apparent distress he is complaining of generalized weakness otherwise he denies any complaints bruise around the left eye is stable there is no fever or chills no headache or dizziness no chest pain no shortness of breath no cough no nausea or vomiting no abdominal pain no diarrhea no burning with urination no frequency or urgency and no hematuria On 09/04/2019 patient was seen and examined in the ICU he is alert responsive in no apparent distress, yesterday after known history of having worsening confu sharita and shortness of breath repeat computed tomography scan of the chest did not reveal any evidence of any new pulmonary embolism computed tomography scan revealed evidence of patchy infiltrates in both lungs Zosyn was added to his regimen he was transferred to intensive care unit for better monitoring. On 09/05/2019 patient was seen and examined on the medical floor he is alert and oriented 3 in no apparent distress there is no fever or chills no headache or dizziness no chest pain no shortness of breath no cough no nausea or vomiting no abdominal pain no diarrhea no burning with urination no frequency or urgency and no hematuria. Hematoma around the left eye is improving. On 09/06/2019 patient was seen and examined on the medical floor he is alert and oriented 3 in no apparent distress there is no fever or chills no headache or dizziness chest pain no shortness of breath no cough no nausea or vomiting no abdominal pain no diarrhea no burning with urination no frequency or urgency and no hematuria's time we are awaiting further culture results and recommendation for antibiotic for discharge. On 09/07/2019 patient was seen and examined on the medical floor he is alert and oriented in no distress there is no fever or chills no headache or dizziness chest pain no shortness of breath no cough no nausea or vomiting no abdominal pain no diarrhea no burning with urination no frequency or urgency and no hematuria, infectious disease consultation requested for recommendation for antibiotic for discharge Objective - Vital Signs Vital signs: Vital Signs Temp 98.0 F 09/07/19 06:40 Pulse 68 09/07/19 06:40 Resp 18 09/07/19 06:40 BP 110/68 09/07/19 06:40 Pulse Ox 94 L 09/07/19 06:40 Intake & Output 09/06/19 09/07/19 09/07/19 18:59 06:59 18:59 Intake Total 100 Output Total 1 Balance 99 Weight 113.7 kg 113.7 kg Intake: Oral 100 Output: Stool 1 Other: Voiding Method Toilet Toilet Urinal Urinal # Voids 2 1 3 - Exam In general patient is alert and oriented 3 in no apparent distress HEENT head normocephalic there is a bruise with hematoma around the left eye, which is worse than yesterday Neck is supple no JVD no goiter no lymphadenopathy Chest exam reveals a scattered crackles bilaterally no wheezing Cardiac exam reveals regular heart sounds no gallops no murmurs Abdomen is soft nontender no organomegaly with normal bowel sounds Extremity exam reveals the right lower extremity larger than the left with edema his laceration in the right pretibial area Neurological examination reveals no gross focal deficit - Labs CBC & Chem 7: 09/05/19 05:03 09/06/19 07:04 Labs: Microbiology - Last 24 Hours (Table) 09/03/19 20:32 Blood Culture - Preliminary Blood No Growth after 72 hours 09/03/19 20:38 Blood Culture - Preliminary Blood No Growth after 72 hours 09/04/19 10:10 Anaerobic Culture - Preliminary Abdomen 09/04/19 10:10 Gram Stain - Final Abdomen Wound Culture - Final Methicillin resist S. aureus Klebsiella pneumoniae Klebsiella oxytoca Assessment and Plan Plan: 1. Acute bilateral pulmonary embolism, started on IV heparin in the emergency room. Right lower extremity DVT 2. Dizziness and presyncope with fall and head trauma with a hematoma around the left eye 3. 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 4. Mild elevation in troponin level likely related to pulmonary embolism 5. Underlying history of coronary artery disease with remote history of angioplasty and stent placement 6. Recent placement of PEG tube for feeding 7. Underlying history of hypertension 8. Underlying history of hyperlipidemia 9. Underlying history of obstructive sleep apnea maintained on CPAP at home. 10. Thrombocytopenia worse today, platelet down to 81, hematology consult requested, if platelet count continues to decrease patient may need to have a Marilynn filter and be off IV heparin. 11. Pneumonia likely related to aspiration maintained on Zosyn At this time patient is admitted to intensive care unit he was started on IV heparin cardiology and pulmonary consultation were requested Home medication reviewed, and reorder Oncology consultation added Will follow closely
[2019-09-07] MEDS: ASPIRIN 81 MG PO SCH (20:33)
[2019-09-07] MEDS: ATORVASTATIN 20 MG TAB PO SCH (20:33)
[2019-09-07] MEDS: DONEPEZIL 10 MG TAB PO SCH (20:33)
[2019-09-07] MEDS: SERTRALINE 50 MG TAB PO SCH (20:34)
[2019-09-07] MEDS: METOPROLOL TARTRATE 12.5 MG TAB PO SCH (20:34)
[2019-09-07] MEDS: risperiDONE 0.5 MG TAB PO SCH (20:34)
[2019-09-07] MEDS: MULTIVITAMINS, THERA 1 EACH TAB PO SCH (20:34)
[2019-09-07] MEDS: PRAMIPEXOLE 1 MG TAB PO SCH (20:34)
--- NOTE | 2019-09-08 07:35 | P.CONS ---
History of Present Illness - Reason for Consult Consult date: 09/07/19 Positive culture from the PEG tube site Requesting physician: Antolin Mckeon - Chief Complaint passed out x 1 day - History of Present Illness Patient is a 74-year-old male with a past medical history significant for tonsillar cancer in this patient with status post chemo and radiation therapy patient was admitted to the oncology office on 08/29/2019 for a follow-u p with the patient did have a syncopal episode patient noticed to have low heart rate subsequently the patient was rushed to the ER patient did have workup and has been noticed to have bilateral pulmonary embolism and right lower extremity DVT for the patient currently being treated with anticoagulation patient did have bacterial for feeding patient was noticed to have some drainage from his PEG tube site which has been cultured and the cultures currently growing Klebsiella and MRSA patient has been on Zosyn infectious disease was consulted for further management of antibiotic therapy the patient has been afebrile throughout his current hospital stay of about 10 days patient did not have any elevated white count patient denies having any pain or discomfort around his PEG tube site drainage is very minimal at the time of dressing changes per the RN and no foul-smelling, the patient denies having any chest pain or shortness of breath or cough no nausea no vomiting and no diarrhea Review of Systems Positive point has been mentioned in the HPI rest of the systems are negative Past Medical History Past Medical History: Coronary Artery Disease (CAD), Cancer, Chest Pain / Angina, Eye Disorder, Hearing Disorder / Deafness, Hyperlipidemia, Hypertension, Osteoarthritis (OA), Sleep Apnea/CPAP/BIPAP Additional Past Medical History / Comment(s): Tonsillar cancer, coronary artery disease, hypertension, hyperlipidemia, osteoarthritis, obstructive sleep apnea, skin cancer, cataracts. PEG Tube placement - July 2019 tonsil cancer with lymph node involvement History of Any Multi-Drug Resistant Organisms: MRSA Year Discovered:: 09/04/19 MDRO Source:: PEG TUBE SITE Past Surgical History: Heart Catheterization With Stent, Joint Replacement Additional Past Surgical History / Comment(s): one stent, LEFT SHOULDER REPLACEMENT, SD KNEE REPLACEMENTS, NUMEROUS SURGERIES LEFT EAR CANCER. CATARACT RIGHT EYE-WITH LENS IMPLANT Past Anesthesia/Blood Transfusion Reactions: No Reported Reaction Date of Last Stent Placement:: 2006 Smoking Status: Former smoker - Past Family History Mother Family Medical History: No Reported History Medications and Allergies Home Medications Medication Instructions Recorded Confirmed Type Donepezil [Aricept] 10 mg PO HS 01/16/14 08/29/19 History Multivitamins, Thera [Multivitamin] 1 tab PO HS 01/16/14 08/29/19 History Aspirin [Adult Low Dose Aspirin EC] 81 mg PO HS 11/12/17 08/29/19 History Atorvastatin [Lipitor] 20 mg PO HS 11/12/17 08/29/19 History Metoprolol Tartrate [Lopressor] 12.5 mg PO HS 11/12/17 08/29/19 History Sertraline [Zoloft] 50 mg PO HS 11/12/17 08/29/19 History Pramipexole Di-HCl [Mirapex] 1 mg PO HS 11/29/18 08/29/19 History Aprepitant [Emend] 80 mg PO DIRECTED 08/29/19 08/29/19 History Dexamethasone 8 mg PO DIRECTED 08/29/19 08/29/19 History Fluconazole [Diflucan] 100 mg PO DAILY PRN 08/29/19 08/29/19 History Hydrocodone/Acetaminophen [[place] 1 tab PO Q8H PRN 08/29/19 08/29/19 History 5-325] Lidocaine Viscous 2% [Xylocaine 10 ml MUCOUS MEM ACHS 08/29/19 08/29/19 History Viscous] Omeprazole [PriLOSEC] 20 mg PO HS 08/29/19 08/29/19 History Ondansetron HCl [Zofran] 8 mg PO Q8H PRN 08/29/19 08/29/19 History SILVER sulfADIAZINE Cream 1 applic TOPICAL BID 08/29/19 08/29/19 History [Silvadene 1% Cream] risperiDONE 0.5 mg PO HS 08/29/19 08/29/19 History Rivaroxaban [Xarelto Starter Pack] 0 mg PO DIRECTED 30 Days #1 pack 09/01/19 Rx Allergies Allergy/AdvReac Type Severity Reaction Status Date / Time No Known Allergies Allergy Verified 08/29/19 11:06 Physical Exam Vitals: Vital Signs Temp Pulse Resp BP Pulse Ox 09/07/19 14:09 97.6 F 70 18 122/75 96 09/07/19 06:40 98.0 F 68 18 110/68 94 L 09/07/19 02:39 97.7 F 63 100/49 93 L 09/07/19 00:00 16 09/06/19 20:00 61 16 09/06/19 19:09 98.0 F 61 106/63 94 L Intake and Output 09/07/19 09/07/19 09/07/19 06:59 14:59 22:59 Intake Total 100 Output Total 1 Balance 99 Intake: Oral 100 Output: Urine 1 Other: Voiding Method Toilet Urinal # Voids 1 3 Weight 113.7 kg 113.7 kg GENERAL DESCRIPTION: Elderly male lying in bed, no distress. No tachypnea or accessory muscle of respiration use. HEENT: Shows Pallor , no scleral icterus. Oral mucous membrane is dry. No pharyngeal erythema or thrush NECK: Trachea central, no thyromegaly. LUNGS: Unlabored breathing. Decreased breath sounds at the base ,No wheeze or crackle. HEART: S1, S2, regular rate and rhythm. No loud murmur ABDOMEN: Soft, back to side with minimal erythema where he minimal drainage no foul-smelling, no tenderness , guarding or rigidity, no organomegaly EXTREMITIES: No edema of feet. SKIN: No rash, no masses palpable. NEUROLOGICAL: The patient is awake, alert, oriented x3, mood and affect normal. Results CBC & Chem 7: 09/05/19 05:03 09/06/19 07:04 Labs: Microbiology - Last 24 Hours (Table) 09/03/19 20:32 Blood Culture - Preliminary Blood No Growth after 72 hours 09/03/19 20:38 Blood Culture - Preliminary Blood No Growth after 72 hours 09/04/19 10:10 Anaerobic Culture - Preliminary Abdomen 09/04/19 10:10 Gram Stain - Final Abdomen Wound Culture - Final Methicillin resist S. aureus Klebsiella pneumoniae Klebsiella oxytoca Assessment and Plan Assessment: 1- patient with minimal drainage from his PEG tube site with a culture positive for multiple pathogens including Klebsiella and MRSA more likely representing GI colonization of these bacteria and there is no evidence of any significant cellulitis at the PEG tube site patient is afebrile and did not have any elevated white count (1) Irritation around percutaneous endoscopic gastrostomy (PEG) tube site Current Visit: Yes Status: Acute Code(s): K94.29 - OTHER COMPLICATIONS OF GASTROSTOMY SNOMED Code(s): 834132898 (2) Positive culture findings in wound Current Visit: Yes Status: Acute Code(s): R89.5 - ABNORMAL MICROBIOLOG FINDINGS IN SPECIMENS FROM OTH ORG/TISS SNOMED Code(s): 542705908 Plan: 1- discontinue Zosyn 2-no need for vancomycin 3- local wound care with a triad cream daily that will keep the area dry We will follow on clinical condition to further adjust medication if needed Thank you for this consultation will follow this patient with you
[2019-09-08] MEDS: RIVAROXABAN 15 MG TAB PO SCH (07:42)
[2019-09-08] MEDS: SODIUM CHLORIDE 0.9% 1,000 ML IV SCH (07:42)
[2019-09-08] MEDS: LIDOCAINE VISCOUS 2% 15 ML CUP MUCOUS MEM SCH ×2 (07:42→12:24)
[2019-09-08 08:25] VITALS: RESP 16
[2019-09-08] MEDS: PANTOPRAZOLE 40 MG/10 ML VIAL IV SCH (09:02)
[2019-09-08] MEDS: MAG HYDROX/AL HYDROX/SIMETH 30 ML, LIDOCAINE VISCOUS 30 ML, diphenhydrAMINE ELIXIR 75 M... PO SCH ×4 (09:02)
--- NOTE | 2019-09-08 12:30 | P.DS ---
Providers Date of admission: 08/29/19 10:56 Expected date of discharge: 09/08/19 Attending physician: Roge Wei Consults: 08/29/19 10:57 Consult Physician Routine Consulting Provider: Handy Piedra Consult Reason/Comments: Bradycardia and syncope Do you want consulting provider notified?: Yes Consult Physician Routine Consulting Provider: Ankur Gauthier Consult Reason/Comments: Head and neck cancer, chemo evaluation Do you want consulting provider notified?: Yes 08/29/19 11:00 Consult Physician Routine Consulting Provider: Terrance Johnson Consult Reason/Comments: Evaluation for radiation Do you want consulting provider notified?: Yes 08/29/19 13:51 Consult Physician Routine Consulting Provider: Blaine Naranjo Consult Reason/Comments: Pulmonary embolism Do you want consulting provider notified?: Yes 08/31/19 08:15 Consult Physician Routine Consulting Provider: Arik Vazquez Consult Reason/Comments: Injury to eye Do you want consulting provider notified?: Yes 09/05/19 10:59 Consult Physician Routine Consulting Provider: Humble Worthington Consult Reason/Comments: IPR Do you want consulting provider notified?: Yes 09/07/19 12:10 Consult Physician Routine Consulting Provider: Nicole Mosquera Consult Reason/Comments: MRSA klebsiella wound infection Do you want consulting provider notified?: Yes Primary care physician: Daksha Villegas Hospital Course: Diagnosis on discharge: 1. Acute bilateral pulmonary embolism, started on IV heparin in the emergency room. Right lower extremity DVT 2. Dizziness and presyncope with fall and head trauma with a hematoma around the left eye 3. 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 4. Mild elevation in troponin level likely related to pulmonary embolism 5. Underlying history of coronary artery disease with remote history of angioplasty and stent placement 6. Recent placement of PEG tube for feeding 7. Underlying history of hypertension 8. Underlying history of hyperlipidemia 9. Underlying history of obstructive sleep apnea maintained on CPAP at home. 10. Thrombocytopenia worse today, platelet down to 81, hematology consult requested, if platelet count continues to decrease patient may need to have a Marilynn filter and be off IV heparin. 11. Pneumonia likely related to aspiration maintained on [facility] Course: Michael Cintron is a 74-year-old male who was having any radiation oncology visit for tonsillar cancer, when he felt dizzy and lightheaded, MATTHIAS YAÑEZ was called, however patient was found to to be conscious with evidence of bradycardia, patient was complaining of shortness of breath but no chest pain, he had the bruise around the left eye which patient states is new, patient also has laceration around the shoulders and the right pretibial area, he was brought into emergency room and was evaluated, computed tomography scan angiogram of the lungs revealed evidence of bilateral pulmonary embolism, he was started on IV heparin and was admitted to intensive care unit. Patient has a known history of coronary artery disease with stent placement in 2005, he also has a recent diagnosis of tonsillar cancer diagnosed 2 months ago. Patient was seen and examined in intensive care unit he is alert and oriented 3 in no apparent distress, he denies any symptoms at this time, there is no fever or chills no headache or dizziness no chest pain, currently he has no shortness of breath he is maintained on oxygen via nasal cannula at 2 L/m, there is no cough no nausea or vomiting no abdominal pain no diarrhea no blood in the stools no burning was urination no frequency or urgency and no hematuria. Patient recently had PEG tube placed. On 08/31/2019 patient was seen and examined on the telemetry floor he is alert and oriented in no distress, hematoma around the left eye more pronounced. platelet count improving, patient denies any chest pain or shortness of breath. On 09/01/2019 patient was seen and examined on the medical floor, he is alert and oriented 3 in no apparent distress he denies any complaints at this time there is no fever or chills no headache or dizziness no chest pain no shortness of breath no cough no nausea or vomiting no abdominal pain no diarrhea no b urning with urination no frequency or urgency and no hematuria hematoma around the left eye is stable since yesterday patient is maintained on PEG tube feeding swallow evaluation was scheduled for today to assess if patient can have any oral food . On 09/02/2019 patient was seen and examined on the medical floor he is more alert and oriented today he is sitting on the edge of the bed is maintained on oxygen via nasal cannula there is no fever or chills no headache or dizziness no chest pain no shortness of breath no cough no nausea or vomiting no abdominal pain no diarrhea no burning with urination no frequency or urgency no hematuria, hematoma around the left eye is stable, patient was started on Xarelto On 09/03/2019 patient was seen and examined on the medical floor he is alert and oriented in no apparent distress he is complaining of generalized weakness otherwise he denies any complaints bruise around the left eye is stable there is no fever or chills no headache or dizziness no chest pain no shortness of breath no cough no nausea or vomiting no abdominal pain no diarrhea no burning with urination no frequency or urgency and no hematuria On 09/04/2019 patient was seen and examined in the ICU he is alert responsive in no apparent distress, yesterday after known history of having worsening confusion and shortness of breath repeat computed tomography scan of the chest did not reveal any evidence of any new pulmonary embolism computed tomography scan revealed evidence of patchy infiltrates in both lungs Zosyn was added to his regimen he was transferred to intensive care unit for better monitoring. On 09/05/2019 patient was seen and examined on the medical floor he is alert and oriented 3 in no apparent distress there is no fever or chills no headache or dizziness no chest pain no shortness of breath no cough no nausea or vomiting no abdominal pain no diarrhea no burning with urination no frequency or urgency and no hematuria. Hematoma around the left eye is improving. On 09/06/2019 patient was seen and examined on the medical floor he is alert and oriented 3 in no apparent distress there is no fever or chills no headache or dizziness chest pain no shortness of breath no cough no nausea or vomiting no abdominal pain no diarrhea no burning with urination no frequency or urgency and no hematuria's time we are awaiting further culture results and recommendation for antibiotic for discharge. On 09/07/2019 patient was seen and examined on the medical floor he is alert and oriented in no distress there is no fever or chills no headache or dizziness ch est pain no shortness of breath no cough no nausea or vomiting no abdominal pain no diarrhea no burning with urination no frequency or urgency and no hematuria, infectious disease consultation requested for recommendation for antibiotic for discharge On 09/08/2019 patient was seen and examined the medical needs and oriented times 3 in no apparent distress he is complaining of some weakness otherwise he denies any other complaints there is no fever or chills no headache or dizziness no chest pain no shortness of breath no cough no nausea or vomiting no abdominal pain no diarrhea no blood in the stools no burning was urination no frequency or urgency and no hematuria. Case was discussed over the phone was Dr. Mosquera infectious disease specialist no recommendation for any antibiotic at the time of discharge patient will be discharged to [facility] for rehabilitation. Patient Condition at Discharge: Fair Plan - Discharge Summary Discharge Rx Participant: Yes New Discharge Prescriptions: New Rivaroxaban [Xarelto Starter Pack] 0 mg PO DIRECTED 30 Days #1 pack Artificial Tears-Hypromellose [Artificial Tear Drops] 1 drops BOTH EYES QID PRN bottle PRN Reason: Dry Eye(S) Continue Multivitamins, Thera [Multivitamin (formulary)] 1 tab PO HS Donepezil [Aricept] 10 mg PO HS Sertraline [Zoloft] 50 mg PO HS Atorvastatin [Lipitor] 20 mg PO HS Aspirin [Adult Low Dose Aspirin EC] 81 mg PO HS Metoprolol Tartrate [Lopressor] 12.5 mg PO HS Pramipexole Di-HCl [Mirapex] 1 mg PO HS Ondansetron HCl [Zofran] 8 mg PO Q8H PRN PRN Reason: Nausea And Vomiting Lidocaine Viscous 2% [Xylocaine Viscous] 10 ml MUCOUS MEM ACHS SILVER sulfADIAZINE Cream [Silvadene 1% Cream] 1 applic TOPICAL BID Hydrocodone/Acetaminophen [Brewster 5-325] 1 tab PO Q8H PRN PRN Reason: Pain risperiDONE 0.5 mg PO HS Omeprazole [PriLOSEC] 20 mg PO HS Aprepitant [Emend] 80 mg PO DIRECTED Discontinued Dexamethasone 8 mg PO DIRECTED Fluconazole [Diflucan] 100 mg PO DAILY PRN PRN Reason: TAKES DURING TREATMENT Discharge Medication List Donepezil [Aricept] 10 mg PO HS 01/16/14 [History] Multivitamins, Thera [Multivitamin (formulary)] 1 tab PO HS 01/16/14 [History] Aspirin [Adult Low Dose Aspirin EC] 81 mg PO HS 11/12/17 [History] Atorvastatin [Lipitor] 20 mg PO HS 11/12/17 [History] Metoprolol Tartrate [Lopressor] 12.5 mg PO HS 11/12/17 [History] Sertraline [Zoloft] 50 mg PO HS 11/12/17 [History] Pramipexole Di-HCl [Mirapex] 1 mg PO HS 11/29/18 [History] Aprepitant [Emend] 80 mg PO DIRECTED 08/29/19 [History] Hydrocodone/Acetaminophen [Brewster 5-325] 1 tab PO Q8H PRN 08/29/19 [History] Lidocaine Viscous 2% [Xylocaine Viscous] 10 ml MUCOUS MEM ACHS 08/29/19 [History] Omeprazole [PriLOSEC] 20 mg PO HS 08/29/19 [History] Ondansetron HCl [Zofran] 8 mg PO Q8H PRN 08/29/19 [History] SILVER sulfADIAZINE Cream [Silvadene 1% Cream] 1 applic TOPICAL BID 08/29/19 [History] risperiDONE 0.5 mg PO HS 08/29/19 [History] Rivaroxaban [Xarelto Starter Pack] 0 mg PO DIRECTED 30 Days #1 pack 09/01/19 [Rx] Artificial Tears-Hypromellose [Artificial Tear Drops] 1 drops BOTH EYES QID PRN bottle 09/08/19 [Rx] Follow up Appointment(s)/Referral(s): Daksha Villegas MD [Primary Care Provider] - 1-2 days [facility], [REFERRING] - As Needed Handy Piedra MD [STAFF PHYSICIAN] - 1 Week [facility], [NON-STAFF] - Ankur Gauthier MD [STAFF PHYSICIAN] - 09/15/19 9:30 am (If pt unable to make appt, please just call to reschedule) Activity/Diet/Wound Care/Special Instructions: pts Xarelto starter pack is filled for free in [facility] pharmacy
--- NOTE | 2019-09-08 15:54 | PN ---
PROGRESS NOTE DATE OF SERVICE: 09/08/2019 REASON FOR FOLLOW UP: Culture positive from his PEG tube site. INTERVAL HISTORY: Patient is currently afebrile. Patient is breathing comfortably. Denies any chest pain or shortness of breath or cough. No nausea, vomiting. No abdominal pain. No pain around his PEG tube site. No diarrhea. PHYSICAL EXAMINATION: Blood pressure 117/75 with a pulse of 65, temperature is 97.5. He is 94% on room air. General description is an elderly male up in the chair in no distress. Respiratory system: Unlabored breathing. Clear to auscultation anteriorly. Heart S1, S2. Regular rate and rhythm. Abdomen: Soft, no tenderness. LABS: Hemoglobin is 12.1, white count 4.0, BUN of 21, creatinine 0.85. DIAGNOSTIC IMPRESSION AND PLAN: Patient with positive culture on his PEG tube site with MRSA and Klebsiella, more likely colonization as no evidence of any cellulitis. Patient no fever or elevated white count. Recommend local wound care with triad cream. No need for any systemic antibiotic. Has been discussed in detail with the admitting physician working on discharge. MMODL / IJN: [id number] /
[2019-09-08 16:23] VITALS: BP 113/74; PULSE 74; TEMP 98
[2019-09-09] MEDS ORDERED: PANTOPRAZOLE 40 MG TABLET PO SCH (07:30)
== END 2019-09-08 15:35 | DRG 175 ==
LOC: EC 08:36 → 3SCARD 10:56 → 2SICU 13:55 → 3SCARD 08-31 16:31 → 2SICU 09-03 18:47 → 4SSUR 09-05 12:40
PROVIDERS: ADMIT Internal Medicine; ATTEND Internal Medicine
PROC: 3E0G76Z Introduction of Nutritional Substance into Upper GI, Via Natural or Artificial Opening (ICD-10-PCS; principal; 2019-08-30)
DX: I26.99 Other pulmonary embolism without acute cor pulmonale (principal); J96.01 Acute respiratory failure with hypoxia; J69.0 Pneumonitis due to inhalation of food and vomit; G93.41 Metabolic encephalopathy; E87.3 Alkalosis; C77.0 Secondary and unspecified malignant neoplasm of lymph nodes of head, face and neck; I82.411 Acute embolism and thrombosis of right femoral vein; I82.431 Acute embolism and thrombosis of right popliteal vein; Z11.59 Encounter for screening for other viral diseases; D69.6 Thrombocytopenia, unspecified; I27.20 Pulmonary hypertension, unspecified; C09.9 Malignant neoplasm of tonsil, unspecified; E86.0 Dehydration; I95.9 Hypotension, unspecified; F03.90 Unspecified dementia, unspecified severity, without behavioral disturbance, psychotic disturbance, mood disturbance, and anxiety; K94.29 Other complications of gastrostomy; I25.119 Atherosclerotic heart disease of native coronary artery with unspecified angina pectoris; I10 Essential (primary) hypertension; H91.90 Unspecified hearing loss, unspecified ear; G47.33 Obstructive sleep apnea (adult) (pediatric); M19.90 Unspecified osteoarthritis, unspecified site; E78.5 Hyperlipidemia, unspecified; R00.0 Tachycardia, unspecified; I45.10 Unspecified right bundle-branch block; J98.01 Acute bronchospasm; R00.1 Bradycardia, unspecified; S41.011A Laceration without foreign body of right shoulder, initial encounter; R40.2362 Coma scale, best motor response, obeys commands, at arrival to emergency department; R40.2142 Coma scale, eyes open, spontaneous, at arrival to emergency department; R40.2242 Coma scale, best verbal response, confused conversation, at arrival to emergency department; H11.32 Conjunctival hemorrhage, left eye; W19.XXXA Unspecified fall, initial encounter; R53.81 Other malaise; R89.5 Abnormal microbiological findings in specimens from other organs, systems and tissues; R79.89 Other specified abnormal findings of blood chemistry; D72.819 Decreased white blood cell count, unspecified; Z66 Do not resuscitate; H53.2 Diplopia; R13.10 Dysphagia, unspecified; R79.1 Abnormal coagulation profile; S00.12XA Contusion of left eyelid and periocular area, initial encounter; Z79.899 Other long term (current) drug therapy; Z79.82 Long term (current) use of aspirin; Z85.828 Personal history of other malignant neoplasm of skin; Z95.5 Presence of coronary angioplasty implant and graft; Z96.653 Presence of artificial knee joint, bilateral; Z96.612 Presence of left artificial shoulder joint; Z98.41 Cataract extraction status, right eye; Z96.1 Presence of intraocular lens; Z98.890 Other specified postprocedural states; Z87.891 Personal history of nicotine dependence
CPT/HCPCS: 36415; 36600; 70450; 71045; 71046; 71275; 72125; 74230; 80048; 80053; 81001; 82550; 82805; 83605; 83735; 83880; 84484; 85025; 85610; 85730; 87040; 87070; 87075; 87077; 87186; 87205; 93005; 93306; 93970; 94640; 96361; 96365; 96366; 96374; 96375; 96376; 99291

== ENCOUNTER → 2019-11-24 | Outpatient (CLI) | payer MEDICARE ==
--- NOTE | 2019-11-25 19:01 | PE ---
EXAMINATION TYPE: PET CT fusion skull to thigh DATE OF EXAM: 11/24/2019 COMPARISON: Prior PET/CT June 30, 2019. HISTORY: Head and neck cancer progress study. Interval radiation and chemotherapy treatment. TECHNIQUE: Following the intravenous administration of 10.19 mCi of F-18 FDG, whole body images are performed from the skull base to the midthigh. Images are reviewed on the computer in the coronal, a xial, and sagittal planes. Reconstructed rotating images are created on independent workstation and reviewed on the computer. A noncontrast CT is performed in conjunction with the PET scan. Dedicated PET/CT imaging of the neck is also performed. SCAN: Subsequent Scan FINDINGS: SKULL BASE AND NECK: Marked interval improvement in the abnormal soft tissue and hypermetabolic upta ke in the tongue base right greater than left. Marked interval improvement in the right neck hypermet abolic adenopathy above the hyoid bone. No new areas of hypermetabolic uptake or adenopathy noted. No residual abnormal hypermetabolic uptake on current study. CHEST, MEDIASTINUM, AND HILAR REGION: No new areas of abnormal hypermetabolic uptake. ABDOMEN AND PELVIS: No new areas of abnormal hypermetabolic uptake. OSSEOUS STRUCTURES: No new areas of abnormal hypermetabolic uptake. OTHER CT: Moderate to severe calcified plaque bilateral carotid bulb level. Mild eccentric mucosal th ickening inferior lateral right maxillary sinus. Moderate to severe three-vessel coronary artery calcification. A few simple-appearing thin-walled cys ts are scattered throughout both kidneys. Prostate gland is mildly enlarged. Moderate multilevel spur ring in the spine. Facet arthropathy lower lumbar spine causes spinal canal stenosis L4-L5 level. IMPRESSION: Complete positive treatment response. No residual or new hypermetabolic uptake noted.
== END | disposition home or self-care (01) ==
LOC: RADPETMAIN 11:43
PROVIDERS: ATTEND Internal Medicine Hematology & Oncology
DX: C16.0 Malignant neoplasm of cardia (principal)
CPT/HCPCS: 78815; A9552

== ENCOUNTER → 2020-12-02 | Outpatient (CLI) | payer MEDICARE ==
--- NOTE | 2020-12-02 13:14 | CT ---
EXAMINATION TYPE: CT neck chest w con DATE OF EXAM: 12/02/2020 COMPARISON: CTA chest September 03, [address] PET CT November 24, 2019. HISTORY: Head & Neck CA CT DLP: 1527.6 mGycm. Automated Exposure Control for Dose Reduction was Utilized. TECHNIQUE: CT scan of the thorax is performed following with IV Contrast, patient injected with 100 mL of Isovue 300. FINDINGS: Neck: Some residual mucosal thickening at the tongue base at level of the inferior oropharynx axial i mages 48 through 54 with slight right-sided asymmetric thickening axial image 49. Residual neoplasm a t this level cannot be excluded as this was site of prior tumor on original PET/CT June 2019. Small residual 8 x 5 mm lymph node axial image 42 right submandibular region at site of prior original enla rged hypermetabolic adenopathy. No new greater than 1 cm lymph nodes. Moderate to severe calcified plaque bilateral carotid bulb level redemonstrated, stenosis approaching result of under 50% bilaterally is thought present. Eccentric noncalcified plaque in the right commo n carotid artery image 28 redemonstrated without significant stenosis. Chest: LUNGS: Dependent atelectasis bilateral lower lobes. No suspicious focal consolidation or groundglass opacity. Mild/moderate bibasilar linear scarring and/or atelectasis. MEDIASTINUM: There are no greater than 1 cm hilar or mediastinal lymph nodes. No cardiomegaly or pe ricardial effusion is seen. Moderate to severe three-vessel coronary artery calcification is redemon strated. OTHER: Metallic hardware from left shoulder surgery is partially imaged. Early excretion of both kidn eys. Partial visualization of suspicious enhancing lateral right renal solid mass worrisome for neopl asm. IMPRESSION: As above. 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 PET/CT is noted more s ensitive. No new mass or enlarged adenopathy identified.
== END | disposition home or self-care (01) ==
LOC: RADCTMAIN 11:02
PROVIDERS: ATTEND Internal Medicine Hematology & Oncology
DX: C76.0 Malignant neoplasm of head, face and neck (principal); R59.0 Localized enlarged lymph nodes; J98.11 Atelectasis
CPT/HCPCS: 82565; 84520; 70491; 71260; 36415; Q9967

== ENCOUNTER → 2023-01-07 | Outpatient (CLI) | payer MEDICARE ==
--- NOTE | 2023-01-07 14:06 | MR ---
EXAMINATION TYPE: MR lumbar spine wo con DATE OF EXAM: 01/07/2023 11:25 AM CLINICAL INDICATION:Male, 77 years old with history of M48.07 SPINAL STENOSIS; PHH, Low back pain int o buttocks and clayton lower extremities COMPARISON: None TECHNIQUE: Multi planar, multi sequence imaging was performed utilizing: T1-weighted, T2-weighted, a nd turbo inversion recovery imaging of the lumbar spine. IV Contrast: (None if empty) FINDINGS: Alignment: The lumbar vertebral bodies have preserved heights and alignment. Cord: The conus medullaris and the distal spinal cord appear unremarkable with regards to their signa l intensity and morphology. Bones/Discs: Multilevel degeneration changes of the spine with osteophyte formation, disc space narro wing and Schmorl's nodes. Facet arthropathy seen throughout the spine. Disc desiccation is present. P seudoarthrosis of the spinous processes in the lower spine. T12-L1: No evidence of significant spinal canal stenosis or neural foraminal stenosis. L1-L2: No evidence of significant spinal canal stenosis or neural foraminal stenosis. L2-L3: Disc bulge and facet joint arthropathy result in mild spinal canal and moderate bilateral neur al foraminal stenosis. L3-L4: Disc bulge and facet joint arthropathy result in moderate to severe spinal canal and moderate bilateral neural foraminal stenosis. L4-L5: Disc bulge and facet joint arthropathy result in severe spinal canal and moderate to severe bi lateral neural foraminal stenosis. L5-S1: The disc is rounded posterior morphology without significant spinal canal stenosis. Facet join t arthropathy with mild to moderate bilateral neural foraminal stenosis. No significant spinal canal or neural foraminal stenosis in the remainder of the visualized levels. Other findings: None. IMPRESSION: 1. L4-L5 severe spinal canal stenosis secondary disc bulge and facet joint arthropathy with moderate to severe bilateral neural foraminal stenosis. 2. L3-L4 moderate to severe spinal canal stenosis secondary disc bulge and facet arthropathy. Modera te bilateral neural foraminal stenosis. 3. Moderate to severe degeneration changes of the lumbar spine. 4. Findings suggestive of Baastrup's disease.
== END | disposition home or self-care (01) ==
LOC: RADMRIMAIN 10:26
PROVIDERS: ATTEND Neurological Surgery
DX: M47.816 Spondylosis without myelopathy or radiculopathy, lumbar region (principal); M99.76 Connective tissue and disc stenosis of intervertebral foramina of lower extremity; M48.07 Spinal stenosis, lumbosacral region
CPT/HCPCS: 72148

== ENCOUNTER → 2023-03-16 | Outpatient (CLI) | payer MEDICARE ==
[2023-03-16 11:09] LABS: Appearance,Urine Clear (Clear); Bilirubin,Urine Negative (Negative); Blood,Urine Negative (Negative); Color,Urine Yellow; Glucose,Urine (UA) Negative (Negative); Ketones,Urine Negative (Negative); Leukocyte Esterase,Urine Negative (Negative); Nitrite,Urine Negative (Negative); Protein,Urine Negative (Negative); Specific Gravity,Urine 1.022 (1.001-1.035); Urobilinogen,Urine <2.0 mg/dL (<2.0)
--- NOTE | 2023-03-16 15:09 | XR ---
EXAMINATION TYPE: XR chest 2V DATE OF EXAM: 03/16/2023 COMPARISON: 09/06/2019 HISTORY: 77-year-old male presurgical testing TECHNIQUE: Frontal and lateral views FINDINGS: Heart is normal in size. There is some patchy medial left basilar opacity. Bandlike areas of atelecta sis anterior midlung and posterior base on the lateral view. [facility] throughout the thoracic spine. Part ially visualized left shoulder arthroplasty. IMPRESSION: Some patchy medial left basilar atelectasis versus developing infiltrate. Correlate with symptoms.
[2023-03-16 15:14] LABS: Blood Urea Nitrogen 20.9 mg/dL (9.0-27.0); Glucose 107 mg/dL (70-110)
[2023-03-16 15:15] LABS: Calcium 9.4 mg/dL (8.7-10.3); Carbon Dioxide 22.7 mmol/L (21.6-31.8); Chloride 108 mmol/L (96-109); Potassium 4.5 mmol/L (3.5-5.5); Sodium 142 mmol/L (135-145)
[2023-03-16 23:13] LABS: HCT 43.8 % (39.6-50.0); HGB 14.1 g/dL (13.0-17.0); MCH 31.1 pg (27.0-32.0); MCHC 32.2 g/dL (32.0-37.0); MCV 96.7 FL (80.0-97.0); Mean Platelet Volume 9.4 FL (9.5-12.2); NRBC Per 100 WBC 0 X 10*3/uL (0.00-0.01); Platelet Count 206 X 10*3/uL (140-440); RBC 4.53 X 10*6/uL (4.40-5.60); RDW 13.8 % (11.5-14.5); WBC 8.77 X 10*3/uL (4.50-10.00)
== END | disposition home or self-care (01) ==
LOC: LABWHC1 08:17
PROVIDERS: ATTEND Neurological Surgery
DX: Z01.811 Encounter for preprocedural respiratory examination (principal); I44.4 Left anterior fascicular block; I44.0 Atrioventricular block, first degree; J98.11 Atelectasis; D64.9 Anemia, unspecified; R30.0 Dysuria; R73.09 Other abnormal glucose; R05.9 Cough, unspecified; R91.8 Other nonspecific abnormal finding of lung field; R94.31 Abnormal electrocardiogram [ECG] [EKG]
CPT/HCPCS: 36415; 71046; 80048; 81003; 83036; 85027; 93005

== ENCOUNTER → 2023-05-04 | Outpatient (CLI) | payer MEDICARE ==
--- NOTE | 2023-05-04 16:45 | XR ---
EXAMINATION TYPE: XR lumbar spine 2 or 3V DATE OF EXAM: 05/04/2023 9:09 AM CLINICAL INDICATION:Male, 78 years old with history of Z98.1 S/P lumbar fusion; COMPARISON: None TECHNIQUE: XR lumbar spine 2 or 3V - Frontal, lateral and coned in L5-S1 lateral views of the spine. FINDINGS: No evidence of any acute osseous pathology. No evidence of loss of vertebral body height i s seen. There is straightened alignment of the lumbar vertebral bodies. Scattered disc space narrowin g. Multilevel marginal osteophyte formation throughout the visualized spine. There is facet joint art hropathy throughout the spine. Scattered at least mild neural foraminal stenosis. IMPRESSION: 1. No acute fracture. 2. Severe multilevel disc degeneration.
== END | disposition home or self-care (01) ==
LOC: RADXRMAIN 08:38
PROVIDERS: ATTEND Neurological Surgery
DX: M51.37 Other intervertebral disc degeneration, lumbosacral region (principal); Z98.1 Arthrodesis status
CPT/HCPCS: 72100